=== PATIENT | male | born 1945 | race Caucasian/White ===

== ENCOUNTER → 2016-12-19 | Outpatient (CLI) | payer OTHER, MEDICARE | PROVIDERS: ATTEND Physician Assistant | DX: R13.10 Dysphagia, unspecified (principal); R09.89 Other specified symptoms and signs involving the circulatory and respiratory systems | CPT/HCPCS: 74230; 92611; G8996; G8997; G8998 ==

== ENCOUNTER → 2017-01-01 | Outpatient (CLI) | payer OTHER, MEDICARE ==
[~2017-01-01] MED LIST: LIDOCAINE 1% 300 MG/30 ML SDV ONE
== END ==
LOC: FIMAGING 12:16
PROVIDERS: ATTEND Physician Assistant
PROC: 0G9K3ZX Drainage of Thyroid Gland, Percutaneous Approach, Diagnostic (ICD-10-PCS; principal; 2017-01-01)
DX: R13.10 Dysphagia, unspecified (principal); J04.0 Acute laryngitis

== ENCOUNTER 2017-03-10 18:28 | Inpatient (IN) | payer OTHER, MEDICARE ==
--- NOTE | 2017-03-10 18:32 | EDPHY ---
H & P HPI/ROS: CHIEF COMPLAINT: Lower right abdominal pain HISTORY OF PRESENT ILLNESS: The patient is an anticoagulated (Plavix) 71 y/o male with a history of [place], CAD , COPD, and hypertension arriving via EMS, complaining of constant, worsening right lower abdominal pain, onset yesterday. He initially thought he was constipated, so he took a laxative with mild relief of symptoms. He was able to have a bowel movement yesterday and today. While en route to the ED he was given 100mcg Fentanyl and 4mg Zofran with mild relief of symptoms. Denies taking any medications for relief of pain today or yesterday. Denies recent history of constipation. Denies vomiting, nausea, urinary complaints, chest pain , fever or other pertinent symptoms. Last PO was last night. REVIEW OF SYSTEMS: A ten point review of systems was performed and is negative with the exception of the items mentioned in the HPI. Past medical history: 1. [place] 2. CAD 3. COPD 4. Hypertension 5. Nasal cancer 6. Sleep apnea 7. Hypothyroid 8. Asthma 9. Dyslipidemia Past surgical history: 1. Shoulder surgery Family history: Denies Social history: Lives in [place], single, former smoker, daily marijuana and alcohol General Appearance: Alert. Vital signs reviewed. BP 185/94. Eyes: Pupils equal and round, no conjunctival injection, no discharge. Anicteric. ENT, Mouth: Mucous membranes are dry, no oropharyngeal erythema or edema. Neck: No lymphadenopathy, supple. Respiratory: Distant lung sounds. Lungs are clear to auscultation; no wheezes, rales, or rhonchi. Cardiovascular: Distant heart sounds. Regular rate and rhythm; no murmur, rub, or gallop. Gastrointestinal: [place]. Small hernia defect on umbilicus that is reducible. Positive McBurney point tenderness, guarding. Hypoactive bowel sounds. No organomegaly appreciated. Skin: Venous stasis changes on bilateral lower extremities. Warm and dry, no rashes on exposed skin. Back: Nontender to palpation over the thoracolumbar spine. No CVAT. Extremities: No lower extremity edema, no calf tenderness or swelling. Neurological: Alert and oriented. Moving all four extremities easily and equally. Psychiatric: Normal affect. - Medical/Surgical History Hx Asthma: No Hx Chronic Respiratory Disease: Yes Hx Diabetes: No Hx Cardiac Disease: Yes Hx Renal Disease: No Hx Cirrhosis: No Hx Alcoholism: No Hx HIV/AIDS: No Hx Splenectomy or Spleen Trauma: No Other PMH: ANGINA TN RESP ISSUES COPD. DM diet controlled, nasal cancer, sleep apnea, CPOD, hypothyroid, HTN, asthma, CAD, dyslipisemia, daily marijuan and alcholol. - Social History Smoking Status: Former smoker Constitutional: Initial Vital Signs Temperature (C) 37.5 C 03/10/17 18:40 Heart Rate 87 03/10/17 18:40 Respiratory Rate 18 03/10/17 18:40 Blood Pressure 185/94 H 03/10/17 18:40 O2 Sat (%) 94 03/10/17 18:40 O2 Delivery Mode Nasal Cannula O2 (L/minute) 2 Allergies/Adverse Reactions: amlodipine Allergy (Severe, Unverified 03/10/17 22:04) Edema of Extremities ezetimibe [From Zetia] Allergy (Severe, Unverified 03/10/17 22:06) Other-Enter Comments [id number] Reductase Inhibitor Allergy (Severe, Unverified 03/10/17 22:06) Other-Enter Comments valsartan [From Diovan] Allergy (Severe, Unverified 03/10/17 22:05) Penicillins Allergy (Unknown, Verified 03/10/17 18:45) UPSET STOMACH lisinopril [Lisinopril] Allergy (Verified 03/10/17 18:45) Swelling/neck,face,throat tetracycline [Tetracycline] Allergy (Verified 03/10/17 18:45) UPSET STOMACH Home Medications: Medication Instructions Recorded Clopidogrel Bisulfate [Plavix (*)] 75 mg PO DAILY 05/19/10 Aspirin/Sod Bicarb/Citric Acid 1 each PO TID PRN 12/30/13 [[facility] Original Tab Eff] Beclomethasone Qvar 80 [Qvar 80 2 puffs IH BID 12/30/13 (*)] Nebivolol HCl [Bystolic] 10 mg PO BID 12/30/13 Nitroglycerin [Nitrostat 0.4 mg 0.4 mg SL PRN PRN 12/30/13 (*)] Tamsulosin HCl [Flomax 0.4 MG (*)] 0.4 mg PO DAILY 12/30/13 methYLPHENIDATE HCL [Ritalin 10mg 10 mg PO TID PRN 12/30/13 (*)] HYDROcodone/APAP 10/325 [[place]ure 0.5 - 1 tab PO Q4-6PRN PRN 03/29/14 10/325 (*)] guaiFENesin [Mucinex 600 MG (*)] 1,200 mg PO BID PRN 03/29/14 Tiotropium Inhaler [Spiriva 18 mcg IH DAILY #1 mdi 05/06/15 Handihaler] Albuterol [Proventil Inhaler HFA 1 - 2 puffs IH Q4-6PRN PRN 03/11/17 (*)] Furosemide [Lasix 20 MG (*)] 20 mg PO BID 03/11/17 Ipratropium/Albuterol [Duoneb (*)] 3 ml IH QID PRN 03/11/17 Levothyroxine [Synthroid 112 mcg 112 mcg PO DAILY 03/11/17 (*)] Potassium Cl [Klor-Con 20 meq (*)] 20 meq PO DAILY 03/11/17 Hydrocodone/APAP 5/325 [[place] 1 - 2 tab PO Q4HRS PRN #30 tab 03/12/17 5/325 (*)] Moxifloxacin [Avelox 400 mg (*)] 400 mg PO DAILY #5 tab 03/12/17 Medical Decision Making - Diagnostics Imaging: Discussed imaging studies w/ spreading machine operator Radiologist, I viewed and interpreted images myself ED Course/Re-evaluation: The patient is an anticoagulated (Plavix) 71 y/o male with a history of COPD and CAD/TN presenting with worsening right lower quadrant pain since last night. On exam he has a positive McBurney's point tenderness, a small hernia defect on his umbilicus that is reducible, and hypoactive bowel sounds. Abdominal CT and labs ordered. 0.5mg IV Dilaudid and 1L IV NS administered. 0: Patient has an elevated white count. 2012: Spoke with radiologist, patient's abdominal CT reveals appendicitis with a possible early rupture. Reviewed CT myself. 2016: Consulted with Dr. Peoples, general surgeon, he accepts admission of this patient. 2019: Reassessed patient and discussed plan for surgery. Patient is comfortable with this plan. 0.5mg IV Dilaudid administered. Patient is allergic to penicillins, antibiotic choice per Dr. Peoples. Differential Diagnosis: Abdominal pain including but not limited to appendicitis, cholecystitis, gastritis and urinary tract infection. - Data Points Laboratory Results: Laboratory Results 03/10/17 18:32 03/10/17 18:32 Microbiology Results: MICROBIOLOGY 03/10/17 22:10 Abdomen - Tissue Gram Stain - Final 03/10/17 22:10 Abdomen - Tissue Anaerobic Culture - Preliminary Medications Given: Hydrocodone Bitart/Acetaminophen (Eure 5/325) 1 - 2 tab PO Q4HRS PRN PRN Reason: Pain, Moderate Able to Take PO Stop: 03/20/17 22:26 Last Admin: 03/12/17 03:27 Dose: 1 tab Beclomethasone Dipropionate (Qvar 80) 2 puffs IH BID [facility] Stop: 09/07/17 08:59 Last Admin: 03/12/17 08:53 Dose: Not Given Calcium Carbonate (Tums) 500 mg PO TID PRN PRN Reason: Indigestion Stop: 09/08/17 03:37 Last Admin: 03/12/17 04:20 Dose: 500 mg Enoxaparin Sodium (Lovenox) 40 mg SC DAILY [facility] Stop: 09/07/17 08:59 Last Admin: 03/12/17 08:22 Dose: 40 mg Furosemide (Lasix) 20 mg PO BID [facility] Stop: 09/07/17 08:59 Last Admin: 03/12/17 08:21 Dose: 20 mg Levofloxacin/Dextrose (Levaquin 500 Mg (Premix)) 100 mls @ 100 mls/hr IV DAILY [facility] PRN Reason: Protocol Stop: 04/10/17 08:59 Last Admin: 03/12/17 08:22 Dose: 100 mls Ketorolac Tromethamine (Toradol) 15 mg IVP Q6HRS [facility] Stop: 03/16/17 00:00 Last Admin: 03/12/17 05:36 Dose: 15 mg Levothyroxine Sodium (Synthroid) 112 mcg PO DAILY [facility] Stop: 09/07/17 08:59 Last Admin: 03/12/17 08:20 Dose: 112 mcg Nebivolol (Bystolic) 10 mg PO BID [facility] Stop: 09/07/17 08:59 Last Admin: 03/12/17 08:21 Dose: 10 mg Potassium Chloride (Klor-Con) 20 meq PO DAILY [facility] Stop: 09/07/17 08:59 Last Admin: 03/12/17 08:20 Dose: 20 meq Simethicone (Mylicon) 80 mg PO PCHS PRN PRN Reason: Gas Stop: 09/08/17 08:59 Last Admin: 03/12/17 04:20 Dose: 80 mg Tamsulosin HCl (Flomax) 0.4 mg PO DAILY [facility] Stop: 09/07/17 08:59 Last Admin: 03/12/17 08:20 Dose: 0.4 mg Tiotropium [place] (Spiriva Handihaler) 18 mcg IH DAILY [facility] Stop: 09/07/17 08:59 Last Admin: 03/12/17 08:53 Dose: Not Given Discontinued Medications Bupivacaine HCl (Sensorcaine 0.25% Sdv) Confirm Administered Dose 30 ml .ROUTE .STK-MED ONE Stop: 03/10/17 20:54 Last Admin: 03/10/17 22:20 Dose: 30 ml Epinephrine HCl (Epinephrine) Confirm Administered Dose 1 mg .ROUTE .STK-MED ONE Stop: 03/10/17 20:55 Last Admin: 03/10/17 22:20 Dose: 0.15 mg Fentanyl (Sublimaze) 25 - 100 mcg IVP Q5M PRN PRN Reason: PACU, IMMEDIATE Pain control Stop: 03/10/17 23:34 Last Admin: 03/10/17 23:07 Dose: 25 mcg Hydromorphone HCl (Dilaudid) 0.5 mg IVP EDNOW ONE Stop: 03/10/17 18:58 Last Admin: 03/10/17 19:08 Dose: 0.5 mg Hydromorphone HCl (Dilaudid) 0.5 mg IVP EDNOW ONE Stop: 03/10/17 20:22 Last Admin: 03/10/17 20:26 Dose: 0.5 mg Sodium Chloride (Ns) 1,000 mls @ 0 mls/hr IV EDNOW ONE; Wide Open PRN Reason: Protocol Stop: 03/10/17 18:58 Last Admin: 03/10/17 19:08 Dose: 1,000 mls Clindamycin Phosphate/Dextrose (Cleocin 900 Mg (Premix)) 50 mls @ 100 mls/hr IV ONCALL ONE PRN Reason: Protocol Stop: 03/10/17 21:10 Last Admin: 03/10/17 21:09 Dose: 50 mls Metronidazole/Sodium Chloride (Flagyl 500 Mg (Premix)) 100 mls @ 100 mls/hr IV Q8HRS SUMEET PRN Reason: Protocol Stop: 04/10/17 05:59 Last Admin: 03/12/17 05:36 Dose: 100 mls Ondansetron HCl (Zofran) 4 mg IVP Q4HRS PRN PRN Reason: *Nausea &/or Vomiting Stop: 03/11/17 22:26 Last Admin: 03/11/17 07:59 Dose: 4 mg Departure - Departure Disposition: To OP Cath/Surgery Clinical Impression: Acute appendicitis Qualifiers: Acute appendicitis type: with localized peritonitis Qualified Code(s): K35.3 - Acute appendicitis with localized peritonitis Condition: Good Report Scribed for: Promise Teixeira Report Scribed by: Veronica Holm Date of Report: 03/10/17 Time of Report: 18:40 Physician Review and Approval Statement: 03/10/17 18:32 Portions of this note were transcribed by the nuclear medical tech. I, Dr. Promise Teixeira, personally performed the history, physical exam, and medical decision- making; and confirmed the accuracy of the information in the transcribed note.
[2017-03-10] MEDS ORDERED: NS 1,000 ML IV ONE (18:57)
[2017-03-10] MEDS ORDERED: HYDROmorphONE/DILAUDID 1 MG/ML INJ IVP ONE ×2 (18:57→20:21)
[2017-03-10 19:01] LABS: PLATELET COUNT 171 10^3/uL (150-400)
[2017-03-10] MEDS ORDERED: IOPAMIDOL (ISOVUE-300) 100 ML BTL ONE (19:36)
[2017-03-10] MEDS ORDERED: CLINDAMYCIN 900 MG/DEXTROSE 50 ML IV ONE (20:41)
[2017-03-10 20:44] LABS: INR 1.03 (0.83-1.16); PROTIME(PATIENT) 13.7 SEC (12.0-15.0)
[2017-03-10] MEDS ORDERED: BUPIVACAINE 0.25% 30 ML SDV ONE (20:53)
--- NOTE | 2017-03-10 20:58 | PDGENHP ---
History and Physical - Chief Complaint abdominal pain - History of Present Illness 71yo M with multiple medical problems presents with abdominal pain since yesterday around noon. States that the pain persisted and worsened which prompted his presentation here. Describes burning, sharp pain around the umbilicus without radiation 8/10 in intensity better with IV narcotics and lying flat. Has never had pain like this before. Last PO was today at 1300 when he had some elyssa nathan. Drinks a bottle of wine per day, uses marijuana daily. History Information - Allergies/Home Medication List Allergies/Adverse Reactions: Penicillins Allergy (Unknown, Verified 03/10/17 18:45) UPSET STOMACH lisinopril [Lisinopril] Allergy (Verified 03/10/17 18:45) Swelling/neck,face,throat tetracycline [Tetracycline] Allergy (Verified 03/10/17 18:45) UPSET STOMACH Home Medications: Clopidogrel Bisulfate [Plavix (*)] 75 mg PO DAILY 05/19/10 [Last Taken 05/01/15] Furosemide [Lasix 40 MG (*)] 40 mg PO DAILY 05/19/10 [Last Taken 05/01/15] Albuterol Sulfate [Albuterol Inhaler Hfa] 2 puffs IH TID PRN 12/30/13 [Last Taken 05/02/15 12:00] Aspirin/Sod Bicarb/Citric Acid [[facility] Original Tab Eff] 1 each PO TID PRN 12/30/13 [Last Taken 05/02/15 09:00] Beclomethasone Qvar 80 [Qvar 80 (*)] 2 puffs IH BID 12/30/13 [Last Taken 15:00] Levothyroxine Sodium 112 mcg PO DAILY 12/30/13 [Last Taken 05/01/15] Nebivolol HCl [Bystolic] 10 mg PO BID 12/30/13 [Last Taken 05/01/15] Nitroglycerin [Nitrostat 0.4 mg (*)] 0.4 mg SL PRN PRN 12/30/13 [Last Taken 03/18] Potassium Chloride 20 meq PO DAILY 12/30/13 [Last Taken 05/01/15] Tamsulosin HCl [Flomax 0.4 MG (*)] 0.4 mg PO DAILY 12/30/13 [Last Taken 05/01/15 ] methYLPHENIDATE HCL [Ritalin 10mg (*)] 10 mg PO TID PRN 12/30/13 [Last Taken ] HYDROcodone/APAP 10 [[place] (*)] 0.5 - 1 tab PO Q4 PRN 03/29/14 [Last Taken 05/01/15] guaiFENesin [Mucinex 600 MG (*)] 1,200 mg PO BID PRN 03/29/14 [Last Taken ] I have personally reviewed and updated: family history, medical history, social history, surgical history Past Medical History: CAD, [place], COPD, NAVID, Hx of nasal cancer, hypothyroid, asthma, HLD - Surgical History Additional surgical history: shoulder surgery - Family History Positive for: non-pertinent - Social History Smoking Status: Former smoker Alcohol Use: Heavy Drug Use: Marijuana 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, 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[place] per day Review of Systems Review of Systems: ROS: 10pt was reviewed & negative except for what was stated in HPI & below Physical Exam Physical Exam: Temp Pulse Resp BP Pulse Ox 37.5 C 94 20 216/110 H 95 03/10/17 18:40 03/10/17 20:15 03/10/17 20:15 03/10/17 20:15 03/10/17 20:30 Constitutional: no apparent distress, appears nourished, not in pain Eyes: PERRL, anicteric sclera, EOMI Ears, Nose, Mouth, Throat: moist mucous membranes, hearing normal, ears appear normal, no oral mucosal ulcers Cardiovascular: regular rate and rhythym, no murmur, rub, or gallop, No edema Respiratory: no respiratory distress, no rales or rhonchi, clear to auscultation Gastrointestinal: normoactive bowel sounds, other (TTP around the umbilicus, no rebound ) Genitourinary: no bladder fullness, no bladder tenderness Skin: warm, normal color, no rashes or abrasions, no fluctuance, no induration, No mottled Musculoskeletal: full muscle strength, no muscle tenderness, normal joint ROM, no joint effusions Psychiatric: interacting appropriately, not anxious, not encephalopathic, thought process linear Lymph, Heme, Immunologic: no cervical LAD, no supraclavicular LAD Lab Data & Imaging Review 03/10/17 18:32 03/10/17 18:32 WBC 12.39 10^3/uL (3.80-9.50) H 03/10/17 18: RBC 4.75 10^6/uL (4.40-6.38) 03/10/17 18:32 Hgb 17.5 g/dL (13.7-17.5) 03/10/17 18: POC Hgb 16.0 gm/dL (13.7-17.5) 03/10/17 19:00 Hct 49.4 % (40.0-51.0) 03/10/17 18: POC Hct 47 % (40-51) 03/10/17 19:00 MCV 104.0 fL (81.5-99.8) H 03/10/17 18: MCH 36.8 pg (27.9-34.1) H 03/10/17 18: MCHC 35.4 g/dL (32.4-36.7) 03/10/17 18: RDW 13.5 % (11.5-15.2) 03/10/17 18: Plt Count 171 10^3/uL (150-400) 03/10/17 18: MPV 9.3 fL (8.7-11.7) 03/10/17 18: Neut % (Auto) 81.1 % (39.3-74.2) H 03/10/17 18: Lymph % (Auto) 12.5 % (15.0-45.0) L 03/10/17: Logan % (Auto) 5.6 % (4.5-13.0) 03/10/17 18: Eos % (Auto) 0.2 % (0.6-7.6) L 03/10/17 18: Baso % (Auto) 0.2 % (0.3-1.7) L 03/10/17: Nucleat RBC Rel Count 0.0 % (0.0-0.2) 03/10/17 18: Absolute Neuts (auto) 10.03 10^3/uL (1.70-6.50) H 03/10/17 18: Absolute Lymphs (auto) 1.55 10^3/uL (1.00-3.00) 03/10/17 18:32 Absolute Monos (auto) 0.70 10^3/uL (0.30-0.80) 03/10/17 18:32 Absolute Eos (auto) 0.03 10^3/uL (0.03-0.40) 03/10/17 18:32 Absolute Basos (auto) 0.03 10^3/uL (0.02-0.10) 03/10/17 18:32 Absolute Nucleated RBC 0.00 10^3/uL (0-0.01) 03/10/17 18:32 Immature Gran % 0.4 % (0.0-1.1) 03/10/17 18: Immature Gran # 0.05 10^3/uL (0.00-0.10) 03/10/17 18:32 PT 13.7 SEC (12.0-15.0) 03/10/17 18:32 INR 1.03 (0.83-1.16) 03/10/17 18:32 VBG Lactic Acid 1.5 mmol/L (0.7-2.1) 03/10/17 18:00 POC Sodium 143 mEq/L (134-144) 03/10/17 19:00 Sodium 144 mEq/L (134-144) 03/10/17 18:32 POC Potassium 3.4 mEq/L (3.3-5.0) 03/10/17 19:00 Potassium 3.6 mEq/L (3.5-5.2) 03/10/17 18:32 POC Chloride 102 mEq/L (97-110) 03/10/17 19:00 Chloride 99 mEq/L (97-110) 03/10/17 18:32 Carbon Dioxide 32 mEq/l (22-31) H 03/10/17 18:32 Anion Gap 13 mEq/L (8-16) 03/10/17 18:32 POC BUN 7 mg/dL (7-23) 03/10/17 19:00 BUN 9 mg/dL (7-23) 03/10/17 18:32 Creatinine 0.8 mg/dL (0.7-1.3) 03/10/17 18:32 POC Creatinine 0.9 mg/dL (0.7-1.3) 03/10/17 19:00 Estimated GFR > 60 03/10/17 18:32 Glucose 99 mg/dL (70-100) 03/10/17 18:32 POC Glucose 109 mg/dL (70-100) H 03/10/17 19:00 Calcium 10.0 mg/dL (8.5-10.4) 03/10/17 18:32 Visualized and Interpreted imaging results: Yes Interpretation: CT: appendicitis surrounded by fluid, poss perforation Assessment & Plan Assessment: Acute appendicitis (Acute) Plan: 71yo M with appendicitis, possibly perforated - to OR for lap appy, poss open. RBA discussed - have asked medicine to see the patient as well given medical complexity
--- NOTE | 2017-03-10 21:16 | PDANEPAE ---
ANE History of Present Illness appy ANE Past Medical History - Cardiovascular History Hx Hypertension: Yes Hx Chest Pain: Yes Hx Coronary Artery / Peripheral Vascular Disease: Yes - Pulmonary History Hx COPD: Yes Hx Asthma/Reactive Airway Disease: No Hx Recent Upper Respiratory Infection: No Hx Oxygen in Use at Home: Yes O2 in Use at Home (L/minute): 3 Hx Sleep Apnea: Yes - Endocrine History Hx Diabetes: No - Renal History Hx Renal Disorders: No - Liver History Hx Hepatic Disorders: No - GI History GERD: no - Chronic Pain History Chronic Pain: Yes ANE Review of Systems Review of Systems: - Exercise capacity METS (RN): 4 METS ANE Patient History - Allergies Allergies/Adverse Reactions: Penicillins Allergy (Unknown, Verified 03/10/17 18:45) UPSET STOMACH lisinopril [Lisinopril] Allergy (Verified 03/10/17 18:45) Swelling/neck,face,throat tetracycline [Tetracycline] Allergy (Verified 03/10/17 18:45) UPSET STOMACH - Home Medications Home Medications: Clopidogrel Bisulfate [Plavix (*)] 75 mg PO DAILY 05/19/10 [Last Taken 05/01/15] Furosemide [Lasix 40 MG (*)] 40 mg PO DAILY 05/19/10 [Last Taken 05/01/15] Albuterol Sulfate [Albuterol Inhaler Hfa] 2 puffs IH TID PRN 12/30/13 [Last Taken 05/02/15 12:00] Aspirin/Sod Bicarb/Citric Acid [[facility] Original Tab Eff] 1 each PO TID PRN 12/30/13 [Last Taken 05/02/15 09:00] Beclomethasone Qvar 80 [Qvar 80 (*)] 2 puffs IH BID 12/30/13 [Last Taken 15:00] Levothyroxine Sodium 112 mcg PO DAILY 12/30/13 [Last Taken 05/01/15] Nebivolol HCl [Bystolic] 10 mg PO BID 12/30/13 [Last Taken 05/01/15] Nitroglycerin [Nitrostat 0.4 mg (*)] 0.4 mg SL PRN PRN 12/30/13 [Last Taken 03/18] Potassium Chloride 20 meq PO DAILY 12/30/13 [Last Taken 05/01/15] Tamsulosin HCl [Flomax 0.4 MG (*)] 0.4 mg PO DAILY 12/30/13 [Last Taken 05/01/15 ] methYLPHENIDATE HCL [Ritalin 10mg (*)] 10 mg PO TID PRN 12/30/13 [Last Taken ] HYDROcodone/APAP 10/325 [[place] [address]25 (*)] 0.5 - 1 tab PO Q4 PRN 03/29/14 [Last Taken 05/01/15] guaiFENesin [Mucinex 600 MG (*)] 1,200 mg PO BID PRN 03/29/14 [Last Taken ] - NPO status NPO Since - Liquids (Date): 03/10/17 NPO Since - Liquids (Time): 13:00 NPO Since - Solids (Date): 03/09/17 NPO Since - Solids (Time): 12:00 - Anes Hx Anes Hx: no prior problems - Smoking Hx Smoking Status: Former smoker - Alcohol Use Alcohol Use: Heavy ANE Labs/Vital Signs - Labs Result Diagrams: 03/10/17 18:32 03/10/17 18:32 - Vital Signs Blood Pressure: 184/160 Heart Rate: 94 Respiratory Rate: 22 O2 Sat (%): 92 Height: 190.5 cm Weight: 104.326 kg ANE Physical Exam - Airway Mallampati Score: Class 2 Mouth exam: poor dentition - Pulmonary Pulmonary: no respiratory distress - Cardiovascular Cardiovascular: regular rate and rhythym - ASA Status ASA Status: III ANE Anesthesia Plan Anesthesia Plan: general endotracheal anesthesia
[2017-03-10] MEDS ORDERED: DEXAMETHASONE 4 MG/ML VIAL ONE (21:18)
[2017-03-10] MEDS ORDERED: ONDANSETRON 4 MG/2 ML VIAL ONE (21:18)
[2017-03-10] MEDS ORDERED: fentaNYL 100 MCG/2 ML INJ ONE ×2 (21:18→22:39)
[2017-03-10] MEDS ORDERED: SUCCINYLCHOLINE CHLORIDE 200 MG/10 ML SYR IVP ONE (21:18)
[2017-03-10] MEDS ORDERED: ROCURONIUM 50 MG/5 ML VIAL ONE (21:18)
[2017-03-10] MEDS ORDERED: PROPOFOL 200 MG/20 ML VIAL ONE (21:18)
[2017-03-10] MEDS ORDERED: KETOROLAC 30 MG/1 ML SDV ONE (21:18)
[2017-03-10] MEDS ORDERED: LIDOCAINE 2% 5 ML SDV ONE (21:19)
[2017-03-10] MEDS ORDERED: SUGAMMADEX SODIUM 200 MG/2 ML VIAL IVP ONE (21:41)
[2017-03-10] MEDS ORDERED: HYDROmorphONE/DILAUDID 1 MG/ML INJ IVP PRN (22:27)
[2017-03-10] MEDS ORDERED: ACETAMINOPHEN 325 MG TAB PO PRN (22:27)
[2017-03-10] MEDS ORDERED: ONDANSETRON 4 MG/2 ML VIAL IVP PRN (22:27)
--- NOTE | 2017-03-10 22:27 | POSTOPPROG ---
Post Op Note Date of Operation: 03/10/17 Surgeon: Freedom Peoples Anesthesiologist: John Anesthesia: GET(General Endotracheal) Pre-op Diagnosis: perforated appendicitis Post-op Diagnosis: same Procedure: lap appy Findings: perforated appendix, base clean Inf/Abcess present in the surg proc area at time of surgery?: Yes Depth: Organ Space EBL: Minimal Total fluids administered: 1000cc washout Specimen(s): appendix and abdominal culture
[2017-03-10] MEDS ORDERED: ALBUTEROL 3 ML DEYVIAL IH PRN (22:34)
[2017-03-10] MEDS ORDERED: NALOXONE HCL 0.4 MG/ML INJ IVP PRN (22:34)
[2017-03-10] MEDS ORDERED: LABETALOL HCL 5 MG/ML 20 ML MDV IVP PRN (22:34)
--- NOTE | 2017-03-10 22:35 | POSTANESTH ---
Post Anesthetic Evaluation Cardiovascular Status: Normal, Stable Respiratory Status: Normal, Stable Level of Consciousness/Mental Status: Can Participate in Eval, Other, See Comment (slightly agitated) Pain Control: Adequate, Prn Tx Ordered Nausea/Vomiting Control: Adequate, Prn Tx Ordered Complications Possibly Related to Anesthesia: None Noted
[2017-03-10] MEDS: fentaNYL 100 MCG/2 ML INJ IVP PRN ×2 (22:39→23:07)
[2017-03-10] MEDS: KETOROLAC 15 MG/1 ML SDV IVP SCH (23:54)
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
--- NOTE | 2017-03-11 04:15 | GOP ---
[f rep st] OPERATIVE REPORT DATE OF OPERATION: 03/10/2017 SURGEON: Freedom Peoples MD [employer]TER[employer] ARCHITECT: None. ANESTHESIA: General endotracheal. ANESTHESIOLOGIST: Dr. Que Lopez. PREOPERATIVE DIAGNOSIS: Perforated appendicitis. POSTOPERATIVE DIAGNOSIS: Perforated appendicitis. PROCEDURE PERFORMED: Laparoscopic appendectomy. FINDINGS: Perforated appendix about mid appendix, base appeared unaffected. SPECIMENS: Appendix. ESTIMATED BLOOD LOSS: 10 cc. DESCRIPTION OF PROCEDURE: The patient was greeted in the preoperative suite. Once again, risks, benefits, and alternatives were discussed. Consent was signed. He was then brought back to the operative suite, placed on the OR table in supine position. After all anesthesia, machines, including SCDs, were on and functioning, a World Health Organization timeout was performed. After successful induction of general anesthesia, the patient's abdomen was prepped and draped in typical sterile fashion. Antibiotics were given on-call to the operating room. I successfully entered the abdomen via an infraumbilical cutdown through which the Veress needle was passed and I achieved insufflation with CO2 to 15 mmHg which was well tolerated by the patient. Through this site I inserted a 12 mm Visiport. I then inserted 2 additional 5 mm trocars, 1 in the suprapubic, 1 in the left lower quadrant. I identified the appendix by tracing the taeniae inferiorly. It was perforated about the mid proximal appendix. I successfully freed it from its abscessed cavity and dissected out the base. Once the base was successfully dissected out, I took the mesentery with the Harmonic Scalpel. I amputated the appendix from the cecal base using a single fire Endo-CHRISTOPH blue load stapler. I was approximately 1 cm away from the mid proximal perforation site. The specimen was then removed. I then irrigated the patient's right lower quadrant and pelvis with 1 L of sterile saline noting clear effluent in the suction canister. Prior to this a portion of the abscessed cavity was removed and sent for culture. I inspected my staple line which was intact and hemostatic. I inspected the mesoappendix which was hemostatic as well. I infiltrated local anesthesia into all port sites which were then removed. I desufflated my pneumoperitoneum. I closed my infraumbilical port site with an 0 Vicryl stitch and the skin with 4-0 Monocryl over which Dermabond was placed. The patient was then extubated in the operative suite and taken to the PACU in satisfactory condition. DRAINS: None. COUNTS: All counts were reported as correct x2. /[id number]/MODL MTDD
[2017-03-11] MEDS: HYDROCODONE/APAP 5/325 TAB PO PRN ×4 (04:50→23:36)
[2017-03-11] MEDS: KETOROLAC 15 MG/1 ML SDV IVP SCH ×4 (05:59→23:35)
[2017-03-11] MEDS: levOFLOXACIN 500 MG/DEXTROSE 100 ML IV SCH (07:59)
[2017-03-11] MEDS: ENOXAPARIN 40 MG/0.4 ML SYR SC SCH (07:59)
[2017-03-11] MEDS ORDERED: guaiFENesin 600 MG TAB.ER PO PRN (08:42)
[2017-03-11] MEDS ORDERED: ASPIRIN PO PRN (08:42)
[2017-03-11] MEDS ORDERED: IPRATROPIUM/ALBUTEROL 3 ML DEYVIAL IH PRN (08:42)
[2017-03-11] MEDS ORDERED: ALBUTEROL 60 PUFFS/8 GM MDI IH PRN (08:42)
[2017-03-11] MEDS ORDERED: [UNRECOGNIZED DRUG - OTHER] PO PRN (08:42)
[2017-03-11] MEDS ORDERED: SOD BICARB PO PRN (08:42)
[2017-03-11] MEDS ORDERED: ALBUTEROL 200 PUFFS/18 GM MDI IH PRN (08:50)
[2017-03-11] MEDS ORDERED: NON-FORMULARY NEW DRUG (Nebivolol Hcl [Bystolic] 10 MG) PO SCH (09:00)
[2017-03-11] MEDS: BECLOMETHASONE QVAR 80 MDI IH SCH ×2 (09:31→21:10)
[2017-03-11] MEDS: TIOTROPIUM INHALER 18 MCG/DOSE 5 DOSE/MDI IH SCH (09:32)
[2017-03-11] MEDS: NEBIVOLOL HCL 5 MG TAB PO SCH ×2 (10:00→22:28)
[2017-03-11] MEDS: FUROSEMIDE 20 MG TAB PO SCH ×2 (10:00→22:27)
[2017-03-11] MEDS: TAMSULOSIN HCL 0.4 MG CAP PO SCH (10:00)
[2017-03-11] MEDS: POTASSIUM CL 20 MEQ TAB PO SCH (10:00)
[2017-03-11] MEDS: LEVOTHYROXINE 112 MCG TAB PO SCH (10:00)
--- NOTE | 2017-03-11 12:20 | SOAPPROG ---
SOAP Progress Note Assessment/Plan: Assessment/Plan: 71yo M s/p lap appy for perforated appendicitis - VSS, HDS - pain much better - tolerating CLD, abdomen soft and aTTP - Reg diet - Will stay overnight for IV abx, Cx pending. - Plan for dc tomorrow 03/11/17 12:19 Subjective: feels much better, hungry Objective: Vital Signs Temp Pulse Resp BP Pulse Ox 36.5 C 69 16 140/78 H 91 L 03/11/17 12:00 03/11/17 12:00 03/11/17 12:00 03/11/17 12:00 03/11/17 12:00 03/10/17 03/11/17 03/12/17 05:59 05:59 05:59 Intake Total 1490 Output Total 125 Balance 1365 PT 13.7 SEC (12.0-15.0) 03/10/17 18:32 INR 1.03 (0.83-1.16) 03/10/17 18:32 ICD10 Worksheet Patient Problems: Problems Problem Status Onset Acute appendicitis Acute C. difficile enteritis Acute 11/03/13 Chest pain Acute Chronic Disease [facility]/Transitional Care Acute Chronic obstructive pulmonary disease with acute exacerbation Acute Coronary artery disease Acute Exacerbation of asthma Acute MRSA (methicillin resistant Staphylococcus aureus) Acute 05/06/15
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
--- NOTE | 2017-03-11 16:48 | ASMTCMCOM ---
CM Note CM Note Notes: Chart reviewed. No needs identified. Lives Independent. CM available should needs arise. Date Signed: 03/11/2017 04:47 PM Electronically Signed By:Khushi Eli RN
[2017-03-12] MEDS: HYDROCODONE/APAP 5/325 TAB PO PRN (03:27)
[2017-03-12] MEDS ORDERED: CALCIUM CARBONATE 500 MG CHEWABLE TAB PO PRN (03:38)
[2017-03-12] MEDS ORDERED: SIMETHICONE 80 MG TAB CHEW PO PRN (03:38)
[2017-03-12] MEDS: KETOROLAC 15 MG/1 ML SDV IVP SCH ×2 (05:36→11:55)
[2017-03-12] MEDS: LEVOTHYROXINE 112 MCG TAB PO SCH (08:20)
[2017-03-12] MEDS: TAMSULOSIN HCL 0.4 MG CAP PO SCH (08:20)
[2017-03-12] MEDS: POTASSIUM CL 20 MEQ TAB PO SCH (08:20)
[2017-03-12] MEDS: NEBIVOLOL HCL 5 MG TAB PO SCH (08:21)
[2017-03-12] MEDS: FUROSEMIDE 20 MG TAB PO SCH (08:21)
[2017-03-12] MEDS: levOFLOXACIN 500 MG/DEXTROSE 100 ML IV SCH (08:22)
[2017-03-12] MEDS: ENOXAPARIN 40 MG/0.4 ML SYR SC SCH (08:22)
--- NOTE | 2017-03-12 08:50 | SOAPPROG ---
SOAP Progress Note Assessment/Plan: Assessment: 71yo M s/p lap appy for perforated appendicitis - had a bad night last night - nauseated after flagyl. DC flagyl -levaquin x 5 more days -if feels improved, tolerating diet, can discharge later this afternoon - midline incision superficial dehiscence. Steri strip and bandaid S: Regretted eating dinner last night. Did not sleep well Abdomen soft with active bowel sounds Midline wound without signs of infection but superficial dehiscence. 03/11/17 12:19 Plan: 03/12/17 08:47 Objective: Vital Signs Temp Pulse Resp BP Pulse Ox 36.8 C 62 18 163/87 H 99 03/12/17 04:00 03/12/17 08:21 03/12/17 04:00 03/12/17 08:21 03/12/17 04:00 Laboratory Results 03/12/17 07:25 03/11/17 03/12/17 03/13/17 05:59 05:59 05:59 Intake Total 1490 2200 Output Total 125 Balance 1365 2200 PT 13.7 SEC (12.0-15.0) 03/10/17 18:32 INR 1.03 (0.83-1.16) 03/10/17 18:32 ICD10 Worksheet Patient Problems: Problems Problem Status Onset Acute appendicitis Acute C. difficile enteritis Acute 11/03/13 Chest pain Acute Chronic Disease Mgmt/Transitional Care Acute Chronic obstructive pulmonary disease with acute exacerbation Acute Coronary artery disease Acute Exacerbation of asthma Acute MRSA (methicillin resistant Staphylococcus aureus) Acute 05/06/15
[2017-03-12] MEDS: TIOTROPIUM INHALER 18 MCG/DOSE 5 DOSE/MDI IH SCH (08:53)
[2017-03-12] MEDS: BECLOMETHASONE QVAR 80 MDI IH SCH (08:53)
[2017-03-12 08:55] VITALS: O2SAT 93
[2017-03-12 11:42] VITALS: BP 105/48; PULSE 59; RESP 12; TEMP 98.7
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
--- NOTE | 2017-03-12 15:05 | ASDISCHSUM ---
Discharge Information Plan Status:Home with No Needs Medically Cleared to Leave: Discharge Date:03/12/2017 01:48 PM CM D/C Disposition:Home, Routine, Self-Care ADT D/C Disposition:Home, Routine, Self-Care Projected Discharge Date:03/12/2017 01:48 PM Transportation at D/C:Family Discharge Delay Reason: Follow-Up Date:03/12/2017 01:48 PM Discharge Slot: Final Diagnosis: Placement Information Patient Contact Information Contact Name:JASON Relationship:Friend Address:[address] Work Phone: City:[place] Phone: [facility]/Zip Code:[place] [address] Email: Financial Information Financial Class: Primary Plan Desc:MEDICARE INPATIENT Primary Plan Number:[id number] Secondary Plan Desc:[employer]/MDR SUPPLEMENT Secondary Plan Number:[id number] Assessment Information [facility] CM Progress Note CM Note CM Note Notes: Chart reviewed. No needs identified. Lives Independent. CM available should needs arise. Date Signed: 03/11/2017 04:47 PM Electronically Signed By:Khushi Eli RN Intervention Information
== END 2017-03-12 13:48 | disposition home or self-care (01) | DRG 339 ==
LOC: EDUNIT# → OBSVTOIN 22:27 → F3N 23:18
PROVIDERS: ADMIT Surgery; ATTEND Surgery
PROC: 0DTJ4ZZ Resection of Appendix, Percutaneous Endoscopic Approach (ICD-10-PCS; principal; 2017-03-10 21:00)
DX: K35.3 Acute appendicitis with localized peritonitis (principal); C7A.020 Malignant carcinoid tumor of the appendix; T81.31XA Disruption of external operation (surgical) wound, not elsewhere classified, initial encounter; J44.9 Chronic obstructive pulmonary disease, unspecified; Z87.891 Personal history of nicotine dependence; J45.909 Unspecified asthma, uncomplicated; I25.10 Atherosclerotic heart disease of native coronary artery without angina pectoris; I25.2 Old myocardial infarction; I10 Essential (primary) hypertension; E78.5 Hyperlipidemia, unspecified; E03.9 Hypothyroidism, unspecified; G47.33 Obstructive sleep apnea (adult) (pediatric); K57.30 Diverticulosis of large intestine without perforation or abscess without bleeding; Z85.22 Personal history of malignant neoplasm of nasal cavities, middle ear, and accessory sinuses
CPT/HCPCS: 82947-QW; J0171; J0330; J1100; J1170; J1650; J1885; J1956; J2405; J2704; J3010; Q9967

== ENCOUNTER → 2017-04-23 | Outpatient (CLI) | payer OTHER, MEDICARE | LOC: BHFA 13:00 | PROVIDERS: ATTEND Internal Medicine Interventional Cardiology | DX: I25.10 Atherosclerotic heart disease of native coronary artery without angina pectoris (principal) | CPT/HCPCS: 78452; 93017; A9500; J2785 ==

== ENCOUNTER → 2017-04-24 | Outpatient (CLI) | payer OTHER, MEDICARE | LOC: FIMAGING 14:26 | PROVIDERS: ATTEND Family Medicine | DX: J84.10 Pulmonary fibrosis, unspecified (principal); R91.8 Other nonspecific abnormal finding of lung field; I25.10 Atherosclerotic heart disease of native coronary artery without angina pectoris; I70.0 Atherosclerosis of aorta ==

== ENCOUNTER → 2017-05-02 | Outpatient (CLI) | payer OTHER, MEDICARE | LOC: BHFA 10:45 | PROVIDERS: ATTEND Internal Medicine Cardiovascular Disease | DX: I25.10 Atherosclerotic heart disease of native coronary artery without angina pectoris (principal) ==

== ENCOUNTER → 2017-05-09 | Outpatient (CLI) | payer OTHER, MEDICARE | LOC: BHFA 11:00 | PROVIDERS: ATTEND Internal Medicine Cardiovascular Disease | DX: J44.9 Chronic obstructive pulmonary disease, unspecified (principal) ==

== ENCOUNTER 2017-07-30 12:29 | Inpatient (IN) | payer OTHER, MEDICARE ==
[2017-07-30 12:50] LABS: PLATELET COUNT 146 10^3/uL (150-400)
--- NOTE | 2017-07-30 12:51 | CPEKG ---
Heart Rate: 104 RR Interval: 577 P-R Interval: 164 QRSD Interval: 128 QT Interval: 364 QTC Interval: 479 P Shoshoni: 64 QRS Shoshoni: 0 T Wave Shoshoni: -82 EKG Severity - ABNORMAL ECG - EKG Impression: SINUS TACHYCARDIA EKG Impression: RIGHT BUNDLE BRANCH BLOCK Electronically Signed By: Lola Ogden 30-Jul-2017 15:19:57
--- NOTE | 2017-07-30 13:33 | EDPHY ---
HPI/HX/ROS/PE/MDM Narrative: CHIEF COMPLAINT: Chest pain, abdominal pain, cough HISTORY OF PRESENT ILLNESS: The patient is a 71 y/o male with a history of COPD and myocardial infarction complaining of fever, cough, chest pain, and abdominal pain for the past two weeks. He reports coughing up clear mucus. He feels "wobbly" and unable to care for himself. He has some associated vomiting. He denies significant shortness of breath or any other associated symptoms. He denies daily alcohol use. He denies smoking. He denies cardiac stent. He is on Plavix. He reports taking aspirin "some days". He reports overall feeling poorly for 2 weeks with gradual decline. He does state that at this point he cannot care for himself at home. No chills, shortness of breath, palpitations, diarrhea, urinary complaints, headache, lightheadedness. REVIEW OF SYSTEMS: Aside from elements discussed in the HPI, a comprehensive 10-point review of systems was reviewed and is negative. PAST MEDICAL HISTORY: COPD, [place] in 2013. On Plavix. SOCIAL HISTORY: Lives in [place], employed, non-smoker VITAL SIGNS: Reviewed by me GENERAL: Chronically ill-appearing, thin, in no respiratory distress. HEENT: Atraumatic. Eyes: No icterus, no injection. Mouth: dry lips, moist mucous membranes. No erythema or lesions. Neck: supple with no adenopathy. LUNGS: Diminished breath sounds throughout. Occasional wheezy cough. No rhonchi or rales. CARDIAC: Regular rate and rhythm, no rubs, murmurs or gallops. ABDOMEN: Soft, nontender, nondistended, bowel sounds normal. BACK: No CVA tenderness. EXTREMITIES: No trauma. No edema. Range of motion is normal throughout. NEURO: Alert and oriented, grossly nonfocal. SKIN: Warm and dry, no rash. PSYCHIATRIC: Normal mentation, no agitation. ED Course: 12-LEAD EKG: Please see the full report in [facility]. My interpretation: Sinus tachycardia, right bundle branch block , no change from previous The patient presents with cough, chest pain, upper abdominal pain, and fever. He reports he has felt this way for the past two weeks. He feels he is "wobbly" and unable to care for himself. On exam, he has diminished breath sounds and dry lips but moist mucus membranes. His troponin is positive at 0.045. Plan for respiratory panel, chest x-ray, EKG, and 325 mg aspirin. 2:00PM- His chest x-ray is clear. He will be admitted to the hospital due to his elevated troponin. Dr. Lopez will be the admitting physician. MDM: After history and physical examination, the differential for patient's presenting complaints was considered, including but not limited to, myocardial ischemia, acute coronary syndrome, pulmonary embolus, pulmonary infectious causes, COPD exacerbation, pulmonary edema, congestive heart failure, and cardiac causes. - Data Points Imaging Results: Imaging Impressions Chest X-Ray 07/30/17 13:31 Impression: Clear lungs. No acute process. Laboratory Results: Laboratory Results 07/30/17 12:35 07/30/17 12:35 07/30/17 07/30/17 12:35 12:35 WBC 11.56 10^3/uL H 10^3/uL (3.80-9.50) RBC 4.30 10^6/uL L 10^6/uL (4.40-6.38) Hgb 14.3 g/dL g/dL (13.7-17.5) Hct 42.0 % % (40.0-51.0) MCV 97.7 fL fL (81.5-99.8) MCH 33.3 pg pg (27.9-34.1) MCHC 34.0 g/dL g/dL (32.4-36.7) RDW 14.2 % % (11.5-15.2) Plt Count 146 10^3/uL L 10^3/uL (150-400) MPV 10.4 fL fL (8.7-11.7) Neut % (Auto) 89.2 % H % (39.3-74.2) Lymph % (Auto) 5.9 % L % (15.0-45.0) Hale % (Auto) 4.2 % L % (4.5-13.0) Eos % (Auto) 0.0 % L % (0.6-7.6) Baso % (Auto) 0.1 % L % (0.3-1.7) Nucleat RBC Rel Count 0.0 % % (0.0-0.2) Absolute Neuts (auto) 10.31 10^3/uL H 10^3/uL (1.70-6.50) Absolute Lymphs (auto) 0.68 10^3/uL L 10^3/uL (1.00-3.00) Absolute Monos (auto) 0.49 10^3/uL 10^3/uL (0.30-0.80) Absolute Eos (auto) 0.00 10^3/uL L 10^3/uL (0.03-0.40) Absolute Basos (auto) 0.01 10^3/uL L 10^3/uL (0.02-0.10) Absolute Nucleated RBC 0.00 10^3/uL 10^3/uL (0-0.01) Immature Gran % 0.6 % % (0.0-1.1) Immature Gran # 0.07 10^3/uL 10^3/uL (0.00-0.10) Sodium 137 mEq/L mEq/L (135-145) Potassium 3.5 mEq/L mEq/L (3.3-5.0) Chloride 97 mEq/L mEq/L (97-110) Carbon Dioxide 28 mEq/l mEq/l (22-31) Anion Gap 12 mEq/L mEq/L (8-16) BUN 16 mg/dL mg/dL (7-23) Creatinine 0.8 mg/dL mg/dL (0.7-1.3) Estimated GFR > 60 Glucose 134 mg/dL H mg/dL (70-100) Calcium 8.7 mg/dL mg/dL (8.5-10.4) Troponin I 0.045 ng/mL H ng/mL (0.000-0.034) Medications Given: Discontinued Medications Aspirin (Aspirin) 324 mg PO EDNOW ONE Stop: 07/30/17 13:55 Last Admin: 07/30/17 14:08 Dose: 324 mg Microbiology Results: MICROBIOLOGY 07/30/17 13:05 Nasal, Sinus - Swab Respiratory Panel (PCR) - Final No Organism Detected General Time Seen by Provider: 07/30/17 13:14 Initial Vital Signs: Initial Vital Signs Temperature (C) 37.5 C 07/30/17 12:37 Heart Rate 107 H 07/30/17 12:37 Respiratory Rate 13 07/30/17 12:37 Blood Pressure 137/80 H 07/30/17 12:37 O2 Sat (%) 97 07/30/17 12:37 O2 Delivery Mode Nasal Cannula O2 (L/minute) 3.5 Allergies/Adverse Reactions: amlodipine Allergy (Severe, Verified 07/30/17 12:43) Edema of Extremities ezetimibe [From Zetia] Allergy (Severe, Verified 07/30/17 12:43) Other-Enter Comments Wognwdp-Ggh-Fsf Reductase Inhibitor Allergy (Severe, Verified 07/30/17 12:43) Other-Enter Comments valsartan [From Diovan] Allergy (Severe, Verified 07/30/17 12:43) Penicillins Allergy (Unknown, Verified 07/30/17 12:43) UPSET STOMACH lisinopril [Lisinopril] Allergy (Verified 07/30/17 12:43) Swelling/neck,face,throat tetracycline [Tetracycline] Allergy (Verified 07/30/17 12:43) UPSET STOMACH Home Medications: Medication Instructions Recorded Clopidogrel Bisulfate [Plavix (*)] 75 mg PO DAILY 05/19/10 Aspirin/Sod Bicarb/Citric Acid 1 each PO TID PRN 12/30/13 [[place] Original Tab Eff] Beclomethasone Qvar 80 [Qvar 80] 2 puffs IH BID 12/30/13 Nebivolol HCl [Bystolic] 10 mg PO BID 12/30/13 Nitroglycerin [Nitrostat 0.4 mg 0.4 mg SL PRN PRN 12/30/13 (*)] Tamsulosin HCl [Flomax 0.4 MG (*)] 0.4 mg PO DAILY 12/30/13 methYLPHENIDATE HCL [Ritalin 10mg 10 mg PO TID PRN 12/30/13 (*)] HYDROcodone/APAP 10325 [[employer] 0.5 - 1 tab PO Q4-6PRN PRN 03/29/14 10 (*)] guaiFENesin [Mucinex 600 MG (*)] 1,200 mg PO BID PRN 03/29/14 Tiotropium Inhaler [Spiriva 18 mcg IH DAILY #1 mdi 05/06/15 Handihaler] Albuterol [Proventil Inhaler HFA 1 - 2 puffs IH Q4-6PRN PRN 03/11/17 (*)] Furosemide [Lasix 20 MG (*)] 20 mg PO BID 03/11/17 Ipratropium/Albuterol [Duoneb (*)] 3 ml IH QID PRN 03/11/17 Levothyroxine [Synthroid 112 mcg 112 mcg PO DAILY 03/11/17 (*)] Potassium Cl [Klor-Con 20 meq (*)] 20 meq PO DAILY 03/11/17 Hydrocodone/APAP 5/325 [[employer] 1 - 2 tab PO Q4HRS PRN #30 tab 03/12/17 5/325 (*)] Moxifloxacin [Avelox 400 mg (*)] 400 mg PO DAILY #5 tab 03/12/17 Departure - Departure Disposition: [facility] Inpatient Acute Clinical Impression: Elevated troponin, Cough Chest pain Qualifiers: Chest pain type: other chest pain Qualified Code(s): R07.89 - Other chest pain Condition: Fair Report Scribed for: Lola Ogden Report Scribed by: Angely Zhu Date of Report: 07/30/17 Time of Report: 15:07 Physician Review and Approval Statement: Portions of this note were transcribed by a center medical director. I personally performed a history, physical exam, medical decision making, and confirmed accuracy of information the transcribed note.
[2017-07-30] MEDS ORDERED: ASPIRIN 81 MG CHEWABLE TAB PO ONE (13:54)
[2017-07-30] MEDS ORDERED: ACETAMINOPHEN 325 MG TAB PO PRN (16:26)
[2017-07-30] MEDS ORDERED: ONDANSETRON 4 MG/2 ML VIAL IVP PRN (16:26)
[2017-07-30] MEDS ORDERED: NITROGLYCERIN 0.4 MG BTL SL PRN (16:26)
[2017-07-30] MEDS ORDERED: HYDROCODONE/APAP 5/325 TAB PO PRN (16:29)
[2017-07-30] MEDS ORDERED: ALBUTEROL 60 PUFFS/8 GM MDI IH PRN (16:29)
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
[2017-07-30] MEDS ORDERED: IOPAMIDOL (ISOVUE 370) 100 ML BTL IV ONE (19:37)
[2017-07-30] MEDS: FUROSEMIDE 20 MG TAB PO SCH (20:36)
[2017-07-30] MEDS ORDERED: NEBIVOLOL HCL 5 MG TAB PO SCH (21:00)
[2017-07-31] MEDS: BECLOMETHASONE QVAR 80 REDIHALER 120 INH/10.6 GM MDI IH SCH ×3 (02:03→20:02)
[2017-07-31] MEDS ORDERED: RANITIDINE SYRUP 15 MG/1 ML UDSYR PO PRN (02:21)
[2017-07-31] MEDS: RANITIDINE HCL 150 MG PO PRN (02:50)
[2017-07-31 04:31] LABS: PLATELET COUNT 133 10^3/uL (150-400)
[2017-07-31] MEDS: FUROSEMIDE 20 MG TAB PO SCH ×2 (08:17→20:08)
[2017-07-31] MEDS: ASPIRIN EC 81 MG TAB PO SCH (08:17)
[2017-07-31] MEDS: TAMSULOSIN HCL 0.4 MG CAP PO SCH (08:18)
[2017-07-31] MEDS: POTASSIUM CL 20 MEQ TAB PO SCH (08:18)
[2017-07-31] MEDS: LEVOTHYROXINE 112 MCG TAB PO SCH (08:18)
[2017-07-31] MEDS: CLOPIDOGREL BISULFATE 75 MG TAB PO SCH (10:10)
[2017-07-31] MEDS: TIOTROPIUM INHALER 18 MCG/DOSE 5 DOSE/MDI IH SCH (10:27)
--- NOTE | 2017-07-31 11:08 | ECHO ---
[email or web address] [address] [address] Main: [phone] Fax: Transthoracic Echocardiogram Name: HALLIE GOLDSTEIN MR#: [id number] Study Date: 07/31/2017 Study Time: 08:19 AM Date of : 1945 Age: 71 year(s) Height: 190.5 cm (75 in.) Weight: 77.11 kg (170 lb.) BSA: 2.05 m2 Gender: Male Examination: Echo Indication: COPD, Eval LV Fx, Shortness of breath Image Quality: Contrast: Requested by: Gurdeep Lopez BP: 142 mmHg/86 mmHg Heart Rate: Rhythm: Indication: COPD, Eval LV Fx, Shortness of breath Procedure Staff Boiler Attendant: Tariq Santillan RDCS Reading Physician: Zuleyma Alexander MD Requesting Provider: Conclusions: Normal size left ventricle. Mild concentric LV hypertrophy. Normal global systolic LV function. No regional wall motion abnormality. Normal size right ventricle. Normal RV function. Small pericardial effusion. Fibrinous debris anterior pericardial space. No significant valvular disease. Compared with echo dated 05/02/2017 There is previously pericardial fat and perhaps a small effusion today's study show slightly more pericardial fluid without tamponade. Measurements: Chambers Valvular Assessment AV/MV Valvular Assessment TV/PV Normal Normal Normal Name Value Range Name Value Range Name Value Range Ao Dania (MM): 3.4 cm (2.2 cm-3.7 AV Vmax: 1.33 m/s (1 m/s-1.7 PV Vmax: 0.53 m/s (0.6 m/s-0.9 cm) m/s) m/s) IVSd (2D): 1.0 cm (0.6 cm-1.1 AV maxP mmHg ( - ) PV PGmax: 1 mmHg ( - ) cm) LVOT Vmax: 0.92 m/s (0.7 m/s-1.1 LVDd (2D): 4.3 cm (4.2 cm-5.9 m/s) cm) MV E Vmax: 0.62 m/s ( - ) LVDs (2D): 2.9 cm (2.1 cm-4 MV A Vmax: 0.70 m/s ( - ) cm) MV E/A: 0.89 ( - ) LVPWd (2D): 1.3 cm (0.6 cm-1 cm) LVEF (2D): 60 (>=54 %) Continued Measurements: Valvular Assessment AV/MV Patient: HALLIE GOLDSTEIN Study Date: 07/31/2017 Page 1 of 2 08:19 AM Name Value MV E' Septal: 0.03 m/s MV E/E' Septal: 18.80 MV E/E' Lateral: 11.20 Findings: Left Ventricle: Normal size left ventricle. Mild concentric LV hypertrophy. Normal global systolic LV function. EF is 60 %. No regional wall motion abnormality. Diastolic dysfunction is present. . Right Ventricle: Normal size right ventricle. Normal RV function. Left Atrium: The left atrium is normal in size. Right Atrium: The right atrium is normal in size. Mitral Valve: The mitral valve is normal in appearance and function. There is no mitral valve regurgitation. Aortic Valve: The aortic valve is normal in appearance and function. The aortic valve is tri-leaflet. Tricuspid Valve: The tricuspid valve appears normal. Trivial tricuspid valve regurgitation. Pulmonic Valve: The pulmonic valve is normal in appearance and function. Aorta: The aorta is normal. Pericardium: Small pericardial effusion. Fibrinous debris anterior pericardial space. Exam Comments: LV wall motion is consistent with bundle branch block.. (No Signature Object) Patient: HALLIE GOLDSTEIN Study Date: 07/31/2017 Page 2 of 2 08:19 AM [id number]
[2017-07-31] MEDS: ENOXAPARIN 40 MG/0.4 ML SYR SC SCH (11:43)
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
--- NOTE | 2017-07-31 15:40 | ASMTCMCOM ---
CM Note CM Note Notes: 07/31/2017 Case Management Note Discussed pt during rounds today. Pt admitted for SOB, malaise and elevated troponin. Met w/pt this afternoon to discuss living situation. Pt lives alone and has strong friend support. He has not been driving recently d/t weakness and friends have been bringing him meals. He has a assistant therapy aide every 2 weeks. Pt is employed. Pt requested SNF referral, stating he thought he should have gone to SNF rehab after recent d/c from [facility]. Pt requested referral to [facility] as it is close to his home. Faxed referral. Case Management d/c poc: [facility] pending acceptance. Case Management to follow. Date Signed: 07/31/2017 03:40 PM Electronically Signed By:Denise Mera RN
[2017-07-31 16:39] LABS: CREATINE KINASE 305 IU/L (0-224)
[2017-07-31] MEDS: NEBIVOLOL HCL 5 MG TAB PO SCH (17:12)
[2017-07-31] MEDS ORDERED: FLUMAZENIL 0.5 MG/5 ML MDV IVP PRN (18:58)
[2017-07-31] MEDS ORDERED: LORazepam 2 MG/ML INJ IVP PRN (18:58)
--- NOTE | 2017-07-31 19:03 | HOSPPROG ---
Hospitalist Progress Note Assessment/Plan: DIAGNOSES: -FAILURE TO THRIVE, CURRENTLY BED-BOUND * Patient lives alone says he has not been out of his house for 2 months -PAIN IN MULTIPLE BODY REGIONS, INCLUDING BACK NECK CHEST AND ABDOMEN * Regarding chest pain the patient has known noncritical CAD, with a normal myocardial perfusion stress test 3 months ago * Regarding abdominal pain this is chronic and does not appear to be improved after his recent abdominal surgery at [facility] * Back pain is also known to be chronic * The patient is currently blaming his failure to thrive on "the National narcotic epidemic dilemma", which she says is preventing him from being prescribed narcotics -ALCOHOL ABUSE / SUSPECT POSSIBLE ONSET OF ALCOHOL WITHDRAWAL AT THIS TIME * Describes drinking half a bottle of wine daily with some additional beer but I am not certain of getting the true story * Onset of tachycardia hypertension, and more aggravated demeanor concerning for possible withdrawal though he is neither confused nor tremulous at the moment with last drink probably less than 24 hr ago -SEVERE DECONDITIONING AND GENERALIZED WEAKNESS * Hard to gauge severity at this time as patient is declining to get out of bed with therapies -HISTORY OF RECENT BOWEL SURGERY AT [facility] * He is eating without nausea or vomiting and is having bowel movements -HISTORY OF CHRONIC SPINE PAIN RELATED TO MULTIPLE INJURIES, WITHOUT RADICULAR SYMPTOMS -CHRONIC HYPOXEMIC RESPIRATORY FAILURE WITH HOME OXYGEN USE AROUND THE CLOCK AND , AND COPD WHICH BOTH APPEAR STABLE AT PRESENT -OBSTRUCTIVE SLEEP APNEA -DAILY MARIJUANA USE This patient is very isolated living at home alone and never leaving his house. He does say that he has friends who check in on him and apparently a woman who he calls a loan secretary comes and checks on him as well. Is unclear to me at the moment her these people are. There may be some depression or other mental health issues underlying the issues above. This patient seen by me on multidisciplinary rounds as well as on hospitalist rounds today. I have also reviewed the patient's case in detail today with Dr. Arthur Martinez PLANS: -I have reviewed his case in detail with Dr. Martinez today from Cardiology, no plans for further coronary assessment and less a more obvious syndrome to suggest acute coronary syndrome develops -CIWA protocol instituted and will watch very closely and manage any withdrawal as a develops -thiamin replacement -nutritional support -continue to trying get the patient to work with Physical occupational therapy -further assessment of his ability for ambulation as were able -social work evaluation -DVT prophylaxis This patient will clearly need ongoing hospital care here for multiple issues in and I am changing him to inpatient status SUBJECTIVE: Patient complains of significant ongoing pain in multiple areas of the body. It seems as I talked to him like these are all actually chronic and little changed from the past He tells me that he has not been out of his house for more than 2 months now literally. He says he does have friends who come in and check on him. No shortness of breath at present No nausea and is eating No fever symptoms OBJECTIVE Vitals reviewed: Is developing some hypertension and tachycardia, otherwise stable vitals on oxygen Education Reporter, my review: Sinus Exam: alert oriented, a somewhat gruff in aggravated demeanor and conversation at this time, angry at hospital staff, but not confused and not tremulous skin warm dry color ok resps not labored lungs clear BSs heart regular abd soft nondistended nontender, bowel sounds present, no palpable abnormality, wounds well healed limbs warm, no edema iv site ok Laboratory data: White count remains elevated 11,000 otherwise unremarkable CBC Unremarkable basic metabolic panel and liver panel Troponins have normalized after indeterminate level on the 1st Objective: Vital Signs Temp Pulse Resp BP Pulse Ox 36.9 C 117 H 18 135/80 H 99 07/31/17 16:00 07/31/17 16:00 07/31/17 16:00 07/31/17 16:00 07/31/17 16:00 Laboratory Results 07/31/17 03:24 07/31/17 03:24 07/30/17 07/31/17 08/01/17 06:59 06:59 06:59 Intake Total 700 1000 Output Total 530 Balance 170 1000 - Time Spent With Patient Time Spent with Patient: greater than 35 minutes Time Spent with Patient: Greater than 35 minutes spent on this patients care, greater than 50% of time spent counseling, educating, and coordinating care regarding the above mentioned plan. ICD10 Worksheet Patient Problems: Problems Problem Status Onset Chest pain Acute Cough Acute Elevated troponin Acute Acute appendicitis Acute C. difficile enteritis Acute 11/03/13 Chronic Disease Mgmt/Transitional Care Acute Chronic obstructive pulmonary disease with acute exacerbation Acute Coronary artery disease Acute Exacerbation of asthma Acute MRSA (methicillin resistant Staphylococcus aureus) Acute 05/06/15
[2017-07-31] MEDS: THIAMINE HCL 100 MG TAB PO SCH (20:08)
[2017-08-01] MEDS: ACETAMINOPHEN 325 MG TAB PO PRN ×4 (01:06→21:42)
[2017-08-01] MEDS: IPRATROPIUM/ALBUTEROL 3 ML DEYVIAL IH PRN ×2 (06:12→22:56)
--- NOTE | 2017-08-01 08:25 | HOSPPROG ---
Hospitalist Progress Note Assessment/Plan: DIAGNOSES: -FAILURE TO THRIVE, CURRENTLY BED-BOUND; SEVERE DECONDITIONING AND GENERALIZED WEAKNESS * Patient lives alone says he has not been out of his house for 2 months, says he depends on friends bringing food to him * Hard to gauge severity of weakness at this time as patient is declining to get out of bed with therapies -ENCEPHALOPATHY * He does seem to have some degree of confusion, difficulty explaining things; at the moment I do not have a baseline and him attempting to contact Mr. Wren , his friend and listed 1st contact to get better background information * B12 deficiencies identified and I am starting in current role B12 infusions at this time * We have observe quite severe sleep apnea here and I wonder if that may actually be contributing if he is not getting good sleep. I observed him to be in apnea for a full minute before if took 1st breath today during my examination , and respiratory therapist found him in a severely apneic and poorly responsive state from which he did after minute to respond well upon awakening. * Other nutritional in different factors may be possible as well * I requested of urine drug screen as well; he does state that he had hydrocodone prescribed but has not had any for the last 2 weeks, but we find an empty hydrocodone bottle in his bag and it is uncertain whether he may have had some here that he has been taking -VITAMIN-B DEFICIENCY, NEWLY IDENTIFIED * MMA is pending to further assess * Certainly could be impacting his encephalopathy * Is not really anemic or macrocytic so not affecting his marrow at present * Parenterally therapy at this time is indicated while with further assess -PAIN IN MULTIPLE BODY REGIONS, INCLUDING BACK NECK CHEST AND ABDOMEN * Regarding chest pain this sounds chronic, the patient has known noncritical CAD, with a normal myocardial perfusion stress test 3 months ago * abdominal pain sounds chronic though difficult to assess timing * Back pain is also known to be chronic * (The patient is currently blaming his failure to thrive on "the National narcotic epidemic dilemma", which she says is preventing him from being prescribed narcotics) -ALCOHOL ABUSE / SUSPECT POSSIBLE ONSET OF ALCOHOL WITHDRAWAL AT THIS TIME * Describes drinking half a bottle of wine daily with some additional beer but I am not certain of getting the true story * Today has not really look like he is in withdrawal but it may still be a bit early so will continue CIWA for the moment -HISTORY OF RECENT BOWEL SURGERY AT [facility] [place] [place] * States he had a right partial colectomy with pathology showing carcinoid as well as other cancerous tissue though he does not know details; states he had intraperitoneal chemotherapy and was told he needs no other therapy but again he is unable to clarify details -CHRONIC HYPOXEMIC RESPIRATORY FAILURE, 24 HR HOME OXYGEN * COPD, sleep apnea, appear stable at baseline * Has not been using CPAP at home because he says he does not tolerate it, however I think he probably has fairly severe apnea and is getting very poor sleep which is not helping his presenting issues as above, have recommended we try some CPAP here, not sure if he will be willing -DAILY MARIJUANA USE at home This patient is very isolated living at home alone and never leaving his house. He does say that he has friends who check in on him and apparently a woman who he calls a marketing secretary comes and checks on him as well. Is unclear to me at the moment her these people are. There may be some depression or other mental health issues underlying the issues above. This patient seen by me on multidisciplinary rounds as well as on hospitalist rounds today. I have also reviewed the patient's case in detail today with Dr. Arthur Martinez PLANS: * will request records from [facility] get more detailed information of his recent abdominal surgery * Continue to work with patient to trying get him to except trying some CPAP here with different mask types than he has used * B12 replacement started parenterally * per Cardiology, no plans for further coronary assessment unless a more concerning syndrome to suggest acute coronary syndrome develops * CIWA protocol instituted and will watch very closely and manage any withdrawal if it develops * thiamin replacement * nutritional support ordered * Regarding his pain would avoid narcotics given his encephalopathic issues, sleep apnea, and failure to thrive at this time * continue to trying get the patient to work with Physical occupational therapy * social work evaluation * DVT prophylaxis Suspect he will end up needing long-term facility the time of discharge unless we find some easily treatable cause of his symptoms which seems unlikely SUBJECTIVE: Still complains of his usual pains as on previous days He has no other specific discomforts today Remains quite weak, appetite fairly poor though no nausea, is having bowel function OBJECTIVE Vitals reviewed: Is developing some hypertension and tachycardia, otherwise stable vitals on oxygen Assembler Movement, my review: Sinus Exam: As I entered the room I observed the patient to be asleep and having a severely prolonged apnea episode, appeared to be greater than 45 sec from the time I entered the room Upon arousal he is alert oriented to person place and time, and is conversant. He is able largely to convey his thoughts but there are times when his words clearly show some degree of confusion and some degree of difficulty piecing together proper sentence. Overall he shows generalized symmetric weakness, no tremor, not anxious at this time. skin warm dry color ok resps not labored lungs clear BSs; Severe barrel chest heart regular abd soft nondistended nontender, bowel sounds present, no palpable abnormality, wounds well healed limbs warm, no edema Limbs, especially legs are quite thin with diminished lean muscle mass iv site ok Lab data: B12 level low at 230, I have ordered methylmalonic acid TSH is normal but free T3 is on the low side, would reassess that I have ordered a urine drug screen this is still pending at present Metabolic panel is stable today Objective: Vital Signs Temp Pulse Resp BP Pulse Ox 36.8 C 100 20 134/78 H 100 08/01/17 08:00 08/01/17 08:00 08/01/17 08:00 08/01/17 08:00 08/01/17 08:00 Laboratory Results 07/31/17 03:24 07/31/17 03:24 07/31/17 08/01/17 08/02/17 06:59 06:59 06:59 Intake Total 700 1550 Output Total 530 Balance 170 1550 - Time Spent With Patient Time Spent with Patient: greater than 35 minutes Time Spent with Patient: Greater than 35 minutes spent on this patients care, greater than 50% of time spent counseling, educating, and coordinating care regarding the above mentioned plan. ICD10 Worksheet Patient Problems: Problems Problem Status Onset Chest pain Acute Cough Acute Elevated troponin Acute Acute appendicitis Acute C. difficile enteritis Acute 11/03/13 Chronic Disease Mgmt/Transitional Care Acute Chronic obstructive pulmonary disease with acute exacerbation Acute Coronary artery disease Acute Exacerbation of asthma Acute MRSA (methicillin resistant Staphylococcus aureus) Acute 05/06/15
[2017-08-01] MEDS: BECLOMETHASONE QVAR 80 REDIHALER 120 INH/10.6 GM MDI IH SCH ×3 (09:55→19:56)
[2017-08-01] MEDS: TIOTROPIUM INHALER 18 MCG/DOSE 5 DOSE/MDI IH SCH (09:56)
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
[2017-08-01] MEDS: ENOXAPARIN 40 MG/0.4 ML SYR SC SCH (12:19)
[2017-08-01] MEDS: MULTIVITAMINS 1 EACH TAB PO SCH (12:20)
[2017-08-01] MEDS: POTASSIUM CL 20 MEQ TAB PO SCH (12:20)
[2017-08-01] MEDS: THIAMINE HCL 100 MG TAB PO SCH (12:20)
[2017-08-01] MEDS: FUROSEMIDE 20 MG TAB PO SCH ×2 (12:20→16:21)
[2017-08-01] MEDS: CLOPIDOGREL BISULFATE 75 MG TAB PO SCH (12:20)
[2017-08-01] MEDS: LEVOTHYROXINE 112 MCG TAB PO SCH (12:20)
[2017-08-01] MEDS: TAMSULOSIN HCL 0.4 MG CAP PO SCH (12:20)
[2017-08-01] MEDS: ASPIRIN EC 81 MG TAB PO SCH (12:20)
[2017-08-01] MEDS: NEBIVOLOL HCL 5 MG TAB PO SCH ×2 (12:20→18:52)
--- NOTE | 2017-08-01 12:58 | PDCARPN ---
Cardiology Progress Note Assessment/Plan: Stat team called this morning for increased somnolence and hypopnea. Vital signs stable with mild sinus tachycardia (HR in the low 100s) and systolic blood pressure in the 130s. History of chronic pain and chronic opiate use raises the possibility he may be self-medicating in the hospital. Empty hydrocodone bottle found in his shaving kit but pt states he ran out 2 weeks ago. Coronary Artery Disease: has chronic chest pain as part of his chronic pain syndrome. Minimal atherosclerotic burden on prior cath and negative Nuc stress test in May 2017. Uncertain as to why he is not on a statin. - Will discuss statin when more alert or as outpatient. Hypertension: adequately controlled at present. Will sign off. Has f/u with his usual wet wash assembler (Dr. French) on August 06 @ 11: 00 am. 08/01/17 12:55 Subjective: Somnolent. Reviewed/Discussed With: hospitalist Objective: Vital Signs (8 Hrs) Temp Pulse Resp BP Pulse Ox 08/01/17 11:44 37.1 C 82 20 114/67 94 08/01/17 10:28 36.3 C 81 113/72 100 08/01/17 10:20 90 113/73 95 08/01/17 10:17 70 107/71 100 08/01/17 10:08 141 H 115/71 08/01/17 10:05 87 106/65 47 L 08/01/17 08:00 36.8 C 100 20 134/78 H 100 08/01/17 06:13 14 93 Intake/Output (24 Hrs) 07/31/17 08/01/17 08/02/17 05:59 05:59 05:59 Intake Total 700 1550 Output Total 530 Balance 170 1550 Intake: Oral (ml) 700 1550 Output: Urine (ml) 530 Urinal 530 Other: Weight 77.111 kg Number of Voids Incontinence 1 Toilet 1 1 Number of Stools Toilet 1 Result Diagrams: 07/31/17 03:24 08/01/17 10:15 Cardiac Labs: Cardiac Lab Results (72 Hrs) 07/30/17 07/30/17 23:30 18:19 Troponin I < 0.012 0.026 - Physical Exam Constitutional: other (Markedly somnolent) Eyes: anicteric sclera Ears, Nose, Mouth, Throat: moist mucous membranes Cardiovascular: regular rate and rhythm, no murmurs, no gallops Respiratory: clear to auscultate bilat Gastrointestinal: normoactive bowel sounds, no tenderness, no masses Skin: no edema Neurologic: other (somnolent but arousable) Psychiatric: following commands ICD10 Worksheet Patient Problems: Problems Problem Status Onset Chest pain Acute Cough Acute Elevated troponin Acute Acute appendicitis Acute C. difficile enteritis Acute 11/03/13 Chronic Disease Mgmt/Transitional Care Acute Chronic obstructive pulmonary disease with acute exacerbation Acute Coronary artery disease Acute Exacerbation of asthma Acute MRSA (methicillin resistant Staphylococcus aureus) Acute 05/06/15
--- NOTE | 2017-08-01 13:38 | ASMTCMCOM ---
CM Note CM Note Notes: 08/01/2017 Case Management Note Discussed pt in rounds. requesting records from [facility]. Notified from [facility] that pt has been accepted. Case Management d/c poc: to [facility]. Case Management to follow. Date Signed: 08/01/2017 01:37 PM Electronically Signed By:Denise Mera RN
[2017-08-01] MEDS: CYANO/VITAMIN B12 1000 MCG/ML VIAL IM SCH (14:38)
--- NOTE | 2017-08-01 18:09 | HOSPPROG ---
Hospitalist Progress Note Assessment/Plan: CRITICAL CARE NOTE GREATER THAN 45 MIN OF BEDSIDE CRITICAL CARE SPENT TODAY IN ADDITION TO MY PREVIOUS HOSPITALIST ROUNDS, MULTIDISCIPLINARY ROUNDS, AND SUBSEQUENT FOLLOW-UP VISITS I WOULD RESPONDED TO A STATIN COUGH FOR THIS PATIENT WAS FOUND UNRESPONSIVE AND APNEIC. BY THE TIME I ARRIVED THE PATIENT WAS BACK IN BED(HAD BEEN FOUND UP IN CHAIR WE HAD BEEN PLACED BY STAFF) AND WAS AWAKE AND BREATHING AGAIN. HIS MENTATION WAS UNCHANGED FROM MY OTHER VISITS. HIS VITAL SIGNS THROUGHOUT IN TERMS OF BLOOD PRESSURE AND PULSE WERE GOOD, HIS OXYGENATION WAS UNMEASURABLE DURING THE EVENT AND BY THE TIME I GOT THERE BECAUSE WE COULD NOT GET A GOOD PULSE READING WITH THE PULSE OXIMETER. THERE IS NO FEVER A BLOOD GAS WAS OBTAINED AND COMES BACK WITH NO CONCERNING ABNORMALITIES. A FINGERSTICK BLOOD SUGAR WAS IN THE 90S. A METABOLIC PANEL WAS UNREMARKABLE. DURING THIS EPISODE WE DID LOOK TO HIS BAGS AND THE PATIENT HAD AN EMPTY BOTTLE FROM HYDROCODONE IN HIS BAG. THIS WAS PRESCRIBED TO HIM. HE STATED THAT HE HAD RUN OUT OF THAT MEDICINE APPROXIMATELY 2 WEEKS AGO AND DENIED USING ANY HERE IN THE HOSPITAL. HE DID NOT HAVE PINPOINT PUPILS DURING MY EXAMINATION. THERE WAS NO INCONTINENCE OR ANYTHING TO SPECIFICALLY SUGGEST SEIZURE. HIS LUNGS WERE CLEAR HEART REGULAR. HIS NEUROLOGIC EXAM SHOWED PREVIOUSLY NONFOCAL ABNORMALITIES WITH ENCEPHALOPATHY, NO TREMOR, NOT ANXIOUS. HE IS STILL ORIENTED TO PERSON PLACE AND TIME MY FINAL IMPRESSION IS THAT THIS WAS LIKELY AN EPISODE OF SEVERE SLEEP APNEA IN A PATIENT WHO HAS LONG HISTORY OF SLEEP APNEA, AND HAS NOT BEEN TREATING IT AT HOME AND NOT ALLOWING TREATMENT SO FAR HERE. AT THIS POINT WE HAVE TALKED TO HIM AND I THINK TO USING SLEEP APNEA TREATMENT WITH CPAP HERE AND WILL TRY AND SEE IF WE CAN ENCOURAGE HIM TO USE THAT OUT OF HOSPITAL WELL. I DID NOT FIND ANY EVIDENCE OF AN INFECTION, HYPOGLYCEMIA, SEIZURE, ACUTE NEUROLOGIC DISORDER OTHERWISE. Objective: Vital Signs Temp Pulse Resp BP Pulse Ox 36.4 C 84 20 107/66 99 08/01/17 16:00 08/01/17 16:00 08/01/17 16:00 08/01/17 16:00 08/01/17 16:00 Laboratory Results 08/01/17 10:15 07/31/17 08/01/17 08/02/17 06:59 06:59 06:59 Intake Total 550 200 Balance 550 200 ICD10 Worksheet Patient Problems: Problems Problem Status Onset Chest pain Acute Cough Acute Elevated troponin Acute Acute appendicitis Acute C. difficile enteritis Acute 11/03/13 Chronic Disease Mgmt/Transitional Care Acute Chronic obstructive pulmonary disease with acute exacerbation Acute Coronary artery disease Acute Exacerbation of asthma Acute MRSA (methicillin resistant Staphylococcus aureus) Acute 05/06/15
[2017-08-02] MEDS: BECLOMETHASONE QVAR 80 REDIHALER 120 INH/10.6 GM MDI IH SCH (08:27)
[2017-08-02] MEDS: IPRATROPIUM/ALBUTEROL 3 ML DEYVIAL IH PRN (08:27)
[2017-08-02] MEDS: TIOTROPIUM INHALER 18 MCG/DOSE 5 DOSE/MDI IH SCH (08:41)
[2017-08-02] MEDS ORDERED: HYDROCODONE/APAP 5/325 TAB PO PRN (09:00)
[2017-08-02] MEDS: NEBIVOLOL HCL 5 MG TAB PO SCH (09:07)
[2017-08-02] MEDS: FUROSEMIDE 20 MG TAB PO SCH ×2 (09:12→16:09)
[2017-08-02] MEDS: MULTIVITAMINS 1 EACH TAB PO SCH (09:12)
[2017-08-02] MEDS: LEVOTHYROXINE 112 MCG TAB PO SCH (09:12)
[2017-08-02] MEDS: TAMSULOSIN HCL 0.4 MG CAP PO SCH (09:12)
[2017-08-02] MEDS: CLOPIDOGREL BISULFATE 75 MG TAB PO SCH (09:12)
[2017-08-02] MEDS: THIAMINE HCL 100 MG TAB PO SCH (09:12)
[2017-08-02] MEDS: ASPIRIN EC 81 MG TAB PO SCH (09:12)
[2017-08-02] MEDS: ENOXAPARIN 40 MG/0.4 ML SYR SC SCH (09:17)
[2017-08-02] MEDS: RANITIDINE HCL 150 MG PO PRN (09:38)
[2017-08-02] MEDS ORDERED: POTASSIUM CL 20 MEQ/15 ML UDCUP PO SCH (09:45)
[2017-08-02] MEDS: POTASSIUM CL 20 MEQ TAB PO SCH (10:27)
[2017-08-02] MEDS: CYANO/VITAMIN B12 1000 MCG/ML VIAL IM SCH (10:42)
[2017-08-02 11:01] VITALS: BP 113/66
[2017-08-02] MEDS: HYDROCODONE/APAP 5/325 TAB PO PRN ×2 (12:17→16:07)
--- NOTE | 2017-08-02 14:19 | PDIAF ---
- Diagnosis Diagnosis: severe deconditioning; recent treatment for appendiceal carcinoma; Code Status: Full Code - Medication Management Discharge Medications: Medications to Continue on Transfer Clopidogrel Bisulfate [Plavix (*)] 75 mg PO DAILY 05/19/10 [Last Taken 03/09/17] Aspirin/Sod Bicarb/Citric Acid [[place] Original Tab Eff] 1 each PO TID PRN 12/30/13 [Last Taken 05/02/15 09:00] Beclomethasone Qvar 80 [Qvar 80] 2 puffs IH BID 12/30/13 [Last Taken 03/09/17] Nitroglycerin [Nitrostat 0.4 mg (*)] 0.4 mg SL PRN PRN 12/30/13 [Last Taken 03/18] Tamsulosin HCl [Flomax 0.4 MG (*)] 0.4 mg PO DAILY 12/30/13 [Last Taken 03/09/17 ] methYLPHENIDATE HCL [Ritalin 10mg (*)] 10 mg PO TID PRN 12/30/13 [Last Taken 08/19] HYDROcodone/APAP 10/325 [[place] 10/325 (*)] 0.5 - 1 tab PO Q4-6PRN PRN 03/29/14 [ Last Taken 03/09/17] guaiFENesin [Mucinex 600 MG (*)] 1,200 mg PO BID PRN 03/29/14 [Last Taken ] Tiotropium Inhaler [Spiriva Handihaler] 18 mcg IH DAILY #1 mdi 05/06/15 [Last Taken 03/09/17] Albuterol [Proventil Inhaler HFA (*)] 1 - 2 puffs IH Q4-6PRN PRN 03/11/17 [Last Taken 03/09/17] Furosemide [Lasix 20 MG (*)] 20 mg PO BID 03/11/17 [Last Taken 03/09/17] Ipratropium/Albuterol [Duoneb (*)] 3 ml IH QID PRN 03/11/17 [Last Taken Unknown] Levothyroxine [Synthroid 112 mcg (*)] 112 mcg PO DAILY 03/11/17 [Last Taken 08/19] Potassium Cl [Klor-Con 20 meq (*)] 20 meq PO DAILY 03/11/17 [Last Taken 03/09/17 ] Nebivolol HCl [Bystolic] 10 mg PO BID@07/31/17 [Last Taken Unknown] Ranitidine HCl [Acid Plant Quality Manager] 150 mg PO BID PRN 07/31/17 [Last Taken 07/30/17 21 :00] Cyanocobalamin [Vitamin B12 (*)] 1,000 mcg PO DAILY tab 08/02/17 [Last Taken Unknown] Discharge Medications: Refer to the Discharge Home Medication list for PRN reason. - Orders Services needed: Registered Nurse, Certified Manager Hair, Physical Therapy, Occupational Therapy Isolation Type: None Diet Recommendation: no restrictions on diet - Follow Up Care Current Providers and Referrals: Freedom Peoples MD [Medical Doctor] - (within 1 week) Patient,NotPresent [Unknown] - As per Instructions Latrell French MD [Medical Doctor] - (August 06 at 11am)
--- NOTE | 2017-08-02 14:26 | ASMTLACE ---
LACE Length of stay for Answers: 2 days current admission Comorbidities - select Answers: Chronic pulmonary disease all that apply Coronary Artery Disease Opioid dependence / Chronic pain Previous myocardial infarction Other Notes: sleep apnea # of Emergency department Answers: 1-2 visits in the last 6 months Score: 13 Date Signed: 08/02/2017 02:25 PM Electronically Signed By:Khushi Eli RN
--- NOTE | 2017-08-02 14:57 | GDS ---
[f rep st] DISCHARGE SUMMARY ALL DIAGNOSES: 1. Failure to thrive, very deconditioned. 2. Acute encephalopathy. 3. Vitamin B12 deficiency. 4. Complaints of pain in multiple body areas. 5. Alcohol abuse. 6. History of recent bowel resection at [facility] with appendiceal carcinoma, having received intrape ritoneal chemotherapy. 7. Chronic hypoxic respiratory failure/chronic obstructive pulmonary disease. 8. Obstructive sleep apnea. 9. Coronary artery disease. HOSPITAL COURSE: 1. Failure to thrive/severe deconditioning: This is slowly improving. He has been working with PT/ OT. Unsure of the exact precipitant, but this is likely multifactorial. Are addressing all problems as possible as below. 2. Encephalopathy: He is somewhat slow to respond, though is currently not completely encephalopath ic. Will address individual problems and follow his overall mental status. 3. Vitamin B12 deficiency: MMA is pending at the time of discharge. He initially received some par enteral B12. Will continue oral B12. This should be rechecked in about a month. 4. Chronic pain, on continuous narcotics: He claims that his Grady had run out 2 weeks ago, althoug h he had a positive urine drug screen. I cannot find evidence that he received opiates prior to the day of discharge here. He has been on these for a long period, thus I am restarting them at his prev ious home dose. He has received a few doses, and this does not appear to have worsened his mental st atus. 5. Obstructive sleep apnea with suspected episode of severe sleep apnea triggering stat team. He re covered without any real intervention. Blood gas at the time was relatively unremarkable. I have re commended strongly that he use his CPAP. His friend will bring his home CPAP to [facility], where he may use it there. 6. History of appendiceal carcinoma, status post recent bowel resection, as well as intraperitoneal chemotherapy at [facility]. He desires to follow up with Dr. Peoples for this. He tells me he does not need any directed Oncology followup. Would defer to Dr. Peoples. 7. Coronary artery disease: Will continue his Plavix for now. He has an allergy to statin. He has a followup with Dr. French as delineated in his discharge plan. 8. Chronic hypoxic respiratory failure/chronic obstructive pulmonary disease: This has been stable. Continue his oxygen. 9. Hypothyroid: His free T3 has been slightly low. He has a normal TSH. I suspect he has likely n ot been taking his Synthroid. Would recheck this in 6 weeks. 10. Disposition: Discharged in stable but still somewhat guarded condition to [facility]. ITEMS PENDING AT THE TIME OF DISCHARGE: MMA level. FOLLOWUP: 1. Dr. Peoples in 1 week for followup of his abdominal surgery. 2. Dr. French on August 06, follow up his coronary artery disease. 3. Follow up with his primary care physician to recheck TSH, T3/T4, B12. He will also need followup for his narcotic dependence and chronic pain. BILLING: I spent more than 30 minutes on the day of discharge coordinating care. /[id number]/MODL
[2017-08-03] MEDS ORDERED: CYANO/VITAMIN B12 1000 MCG TAB PO SCH (09:00)
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
== END 2017-08-02 17:20 | DRG 640 ==
LOC: EDUNIT# → OBSVTOIN 14:55 → INTOOBSV 14:55 → F2W 16:24 → OBSVTOIN 07-31 19:05
PROVIDERS: ADMIT Family Medicine; ATTEND Family Medicine
DX: R62.7 Adult failure to thrive (principal); G93.40 Encephalopathy, unspecified; R07.9 Chest pain, unspecified; J44.9 Chronic obstructive pulmonary disease, unspecified; J96.11 Chronic respiratory failure with hypoxia; I25.10 Atherosclerotic heart disease of native coronary artery without angina pectoris; G89.29 Other chronic pain; G47.33 Obstructive sleep apnea (adult) (pediatric); E53.8 Deficiency of other specified B group vitamins; E03.9 Hypothyroidism, unspecified; Z99.81 Dependence on supplemental oxygen; Z87.891 Personal history of nicotine dependence; Z85.89 Personal history of malignant neoplasm of other organs and systems; Z74.01 Bed confinement status; I25.2 Old myocardial infarction
CPT/HCPCS: 80307; 82607-90; 83921-90; 84481-90; 97116-GP; 97162-GP; 97166-GO; 97530-GP; 97535-GO; G0378; G0480; G8978-GP-CJ; G8979-GP-CI; G8987-GO-CK; G8988-GO-CJ; J1650; J3420; Q9967

== ENCOUNTER 2017-08-03 13:01 | Inpatient (IN) | payer OTHER, MEDICARE ==
--- NOTE | 2017-08-03 13:21 | EDPHY ---
H & P Time Seen by Provider: 08/03/17 13:04 HPI/ROS: CHIEF COMPLAINT: Stroke alert HISTORY OF PRESENT ILLNESS: Patient is a 71-year-old man who is brought in by EMS as a stroke alert from [facility] where he was found to have weakness in his left arm and droop in his left face. Of note the patient was discharged from hospital yesterday where he had been admitted for failure to thrive and deconditioning as well as acute encephalopathy alcohol abuse, COPD with chronic hypoxic respiratory failure and sleep apnea and coronary artery disease. During his stay had an episode of apnea that resulted in a code alert. By the time staff arrived he was awake and acting normally. According to paramedics the patient was last seen normal today at 11:30 a.m. Before his nap. When he was woken from is nap at 12:30 p.m. However he was nonverbal and left-sided facial droop and left arm weakness. The paramedics confirm that he had the symptoms when they arrived on scene. In route however his symptoms have improved. He is now more verbal although slightly slurred. No obvious facial droop and has had increased strength movement in his left arm. He is on Plavix. REVIEW OF SYSTEMS: Unable to obtain secondary to condition EXAM: GENERAL: Somewhat disheveled, minimally verbal HEAD: Atraumatic, normocephalic. EYES: Pupils equal round and reactive to light, extraocular movements intact, sclera anicteric, conjunctiva are normal. ENT: TMs normal, nares patent, oropharynx clear without exudates. Moist mucous membranes. NECK: Normal range of motion, supple without lymphadenopathy or JVD. LUNGS: Breath sounds clear to auscultation bilaterally and equal. No wheezes rales or rhonchi. HEART: Regular rate and rhythm without murmurs, rubs or gallops. ABDOMEN: Soft, nontender, normoactive bowel sounds. No guarding, no rebound. No masses appreciated. BACK: No CVA tenderness, no spinal tenderness, step-offs or deformities EXTREMITIES: Normal range of motion, no pitting or edema. No clubbing or cyanosis. NEUROLOGICAL: No obvious facial droop, mild slurred speech, no tongue deviation , no pronator drift, some mild difficulty with the exam but 5/5 strength in the arms and is able to wiggle toes and move feet but only list them off the bed briefly. PSYCH: Unable to assess SKIN: Warm, dry, normal turgor, no visible rashes or lesions. Source: Patient, EMS, Old records - Medical/Surgical History Hx Asthma: No Hx Chronic Respiratory Disease: Yes Hx Diabetes: No Hx Cardiac Disease: Yes Hx Renal Disease: No Hx Cirrhosis: No Hx Alcoholism: No Hx HIV/AIDS: No Hx Splenectomy or Spleen Trauma: No Other PMH: ANGINA IN RESP ISSUES COPD. DM diet controlled, nasal cancer, sleep apnea, COPD, hypothyroid, HTN, asthma, CAD, dyslipisemia, daily marijuana and alcholol. - Family History Significant Family History: No pertinent family hx - Social History Smoking Status: Former smoker Alcohol Use: Sober Constitutional: Initial Vital Signs Temperature (C) 36.7 C 08/03/17 13:26 Heart Rate 103 H 08/03/17 13:26 Respiratory Rate 20 08/03/17 13:26 Blood Pressure 100/64 08/03/17 13:26 O2 Sat (%) 97 08/03/17 13:26 O2 Delivery Mode Nasal Cannula O2 (L/minute) 4 Allergies/Adverse Reactions: amlodipine Allergy (Severe, Verified 07/30/17 12:43) Edema of Extremities ezetimibe [From Zetia] Allergy (Severe, Verified 07/30/17 12:43) Other-Enter Comments Mlcxmrw-Hvs-Qys Reductase Inhibitor Allergy (Severe, Verified 07/30/17 12:43) Other-Enter Comments valsartan [From Diovan] Allergy (Severe, Verified 07/30/17 12:43) Penicillins Allergy (Unknown, Verified 07/30/17 12:43) UPSET STOMACH lisinopril [Lisinopril] Allergy (Verified 07/30/17 12:43) Swelling/neck,face,throat tetracycline [Tetracycline] Allergy (Verified 07/30/17 12:43) UPSET STOMACH Home Medications: Medication Instructions Recorded Clopidogrel Bisulfate [Plavix (*)] 75 mg PO DAILY 05/19/10 Aspirin/Sod Bicarb/Citric Acid 1 each PO TID PRN 12/30/13 [[place] Original Tab Eff] Beclomethasone Qvar 80 [Qvar 80] 2 puffs IH BID 12/30/13 Nitroglycerin [Nitrostat 0.4 mg 0.4 mg SL PRN PRN 12/30/13 (*)] Tamsulosin HCl [Flomax 0.4 MG (*)] 0.4 mg PO DAILY 12/30/13 methYLPHENIDATE HCL [Ritalin 10mg 10 mg PO TID PRN 12/30/13 (*)] HYDROcodone/APAP [Edison 0.5 - 1 tab PO Q4-6PRN PRN 03/29/14 10325 (*)] guaiFENesin [Mucinex 600 MG (*)] 1,200 mg PO BID PRN 03/29/14 Tiotropium Inhaler [Spiriva 18 mcg IH DAILY #1 mdi 05/06/15 Handihaler] Albuterol [Proventil Inhaler HFA 1 - 2 puffs IH Q4-6PRN PRN 03/11/17 (*)] Furosemide [Lasix 20 MG (*)] 20 mg PO BID 03/11/17 Ipratropium/Albuterol [Duoneb (*)] 3 ml IH QID PRN 03/11/17 Levothyroxine [Synthroid 112 mcg 112 mcg PO DAILY 03/11/17 (*)] Potassium Cl [Klor-Con 20 meq (*)] 20 meq PO DAILY 03/11/17 Nebivolol HCl [Bystolic] 10 mg PO BID@07/31/17 Ranitidine HCl [Acid Urban Planning Professor] 150 mg PO BID PRN 07/31/17 Cyanocobalamin [Vitamin B12 (*)] 1,000 mcg PO DAILY tab 08/02/17 Medical Decision Making - Diagnostics EKG Interpretation: An EKG obtained and was read and documented in trace view. Please see trace view for full reading and report. Sinus rhythm, right bundle branch block, similar to previous Imaging Results: Imaging Impressions Head CT 08/03/17 13:02 Impression: Stable negative head CT. Final concordant results called to Dr. Golden at 13:30 PM General information for patients regarding this examination can be found at [email or web address]. If you have questions or comments about this report, please contact me at [phone] (hospital) or [phone] (cell). Chest X-Ray 08/03/17 13:04 Impression: Increased aortic arch wall thickening since May 2015. Please see the CT angiography report of the neck done earlier today. Head CTA 08/03/17 13:25 Impression: Negative CT angiogram of the brain. 2. CT Angiography of the Neck (With Contrast) Clinical Indications: Stroke alert Technique: During IV administration of 85 mL of Isovue-370 intravenously, helical multidetector data acquisition was obtained from the upper thorax cephalad through the skull base. The thinly collimated data were manipulated in multiple projections on the 3D computer workstation by the radiologist. Dose reduction techniques were utilized. Findings: An inferior aortic arch "ulcerated plaque" with adjacent soft tissue thickening (average HU = 13 ) vs posttraumatic mural tear with adjacent mediastinal soft tissue thickening is stable since July 30, 2017 but new since March 2006, at which time there was a thin, partially calcified ductus ligament present. Carotid bifurcations are widely patent. There is a 25% distal left common carotid artery noncalcified stenosis. There is dense calcification in the left carotid bifurcation without a flow-limiting stenosis. There is more mild calcified plaque in the right carotid bifurcation. Both proximal common and internal carotid arteries are widely patent Both vertebral arteries are open , the right being dominant. No evidence of occlusion, hemodynamically significant stenosis, or ulceration. There is a bovine arch consisting of a conjoined origin of the innominate artery and left common carotid artery. There is multilevel degenerative disk disease between C3 and C7. There is a mild spondylolisthesis at C7-T1 where there is an old mild superior endplate compression of T1. 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 Impression: 1. No evidence for carotid or vertebral artery flow limiting stenosis 2. Posttraumatic versus degenerative inferior aortic arch abnormality, stable x3 days. Doubt acute hemorrhage since the Hounsfield units are low. Please see above. Does the patient have any chest pain? Is there history of severe chest trauma between 2006 and 2017? Final concordant results discussed with Dr. Golden at 2:27 PM Note: All stenoses are calculated using NASCET Criteria. General information for patients regarding this examination can be found at [email or web address]. If you have questions or comments about this report, please contact me at (hospital) or [phone] (cell). Neck CTA 08/03/17 13:25 Impression: Negative CT angiogram of the brain. 2. CT Angiography of the Neck (With Contrast) Clinical Indications: Stroke alert Technique: During IV administration of 85 mL of Isovue-370 intravenously, helical multidetector data acquisition was obtained from the upper thorax cephalad through the skull base. The thinly collimated data were manipulated in multiple projections on the 3D computer workstation by the radiologist. Dose reduction techniques were utilized. Findings: An inferior aortic arch "ulcerated plaque" with adjacent soft tissue thickening (average HU = 13 ) vs posttraumatic mural tear with adjacent mediastinal soft tissue thickening is stable since July 30, 2017 but new since March 2006, at which time there was a thin, partially calcified ductus ligament present. Carotid bifurcations are widely patent. There is a 25% distal left common carotid artery noncalcified stenosis. There is dense calcification in the left carotid bifurcation without a flow-limiting stenosis. There is more mild calcified plaque in the right carotid bifurcation. Both proximal common and internal carotid arteries are widely patent Both vertebral arteries are open , the right being dominant. No evidence of occlusion, hemodynamically significant stenosis, or ulceration. There is a bovine arch consisting of a conjoined origin of the innominate artery and left common carotid artery. There is multilevel degenerative disk disease between C3 and C7. There is a mild spondylolisthesis at C7-T1 where there is an old mild superior endplate compression of T1. 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 Impression: 1. No evidence for carotid or vertebral artery flow limiting stenosis 2. Posttraumatic versus degenerative inferior aortic arch abnormality, stable x3 days. Doubt acute hemorrhage since the Hounsfield units are low. Please see above. Does the patient have any chest pain? Is there history of severe chest trauma between 2006 and 2017? Final concordant results discussed with Dr. Golden at 2:27 PM Note: All stenoses are calculated using NASCET Criteria. General information for patients regarding this examination can be found at [email or web address]. If you have questions or comments about this report, please contact me at [phone](hospital) or [phone] (cell). Chest/Thorax CTA 08/03/17 14:45 Impression: 1. There is no CT evidence of pulmonary artery thromboemboli. 2. More pronounced mediastinal fluid/hemorrhage above and below the aortic arch (than on 07/30/2017) where there is a penetrating undersurface atherosclerotic plaque observed. 3. Atherosclerotic coronary artery calcifications. Findings were discussed between Drs. Greg Mancia, myself, and Dr. Thor Li at 4:15 PM on 08/03/17. Imaging: Discussed imaging studies w/ call specialist Radiologist ED Course/Re-evaluation: 1:20 p.m. the patient's friend has arrived. He was there when the patient woke up. He states that he and the nursing staff noticed the patient had pinpoint pupils and seemed confused and altered but he did not have any aphasia or facial droop or arm weakness. The friend states that the nurses were putting him through those type of movement tests and he was able to do them. This is in direct contradiction to the report the paramedics gave. The patient is now back from CT scan and being examined by [facility]. Will also attempt to contact the group home. Regardless the patient will not be a tPA candidate because even if he did have focal neurologic deficits there now improved. 1:25 p.m. I discussed the case with Dr. Stahl who agrees the patient is not a tPA candidate. She does recommend proceeding with the CT angio and admitting for MRI for confirmation. They calculate an NIH stroke score of 8 with a 3 for the left leg a 3 for the right leg for minimal effort against gravity also a 1 for the left arm for a slight drift and 1 for mild dysarthria. 2:40 p.m. We discussed the CT angio results. The patient denies any significant history of chest trauma. I have paged cardiothoracic surgery. Will also continue our plan to admit for altered mental status and the patient MRI. The patient's neuro exam is improved. No arm weakness detectable now. He is able to hold his legs off the bed. No slurred speech. 2:45 p.m. I discussed the case with Dr. Woo who recommends CT angio of the chest. 3:00 p.m. I discussed the case with Dr. Winkler who will admit. 3:40 p.m. the patient refused to CT scan. I talked to him again and convinced him to have it and called the technical support technician back in. Dr. Woo called over the phone and is concerned about the delay. 4:[address] Woo has evaluated the patient. The patient does have a aortic arch ulceration that he will place a graft into through femoral cutdown. Differential Diagnosis: Partial list of the Differential diagnosis considered include but were not limited to; CVA, medication reaction, sleep apnea and although unlikely based on the history and physical exam, I also considered infection, head injury, seizure. - Data Points Laboratory Results: Laboratory Results 08/03/17 12:05 08/03/17 12:05 08/03/17 08/03/17 08/03/17 14:10 13:09 12:05 WBC RBC Hgb POC Hgb 13.3 gm/dL L gm/dL (13.7-17.5) Hct POC Hct 39 % L % (40-51) MCV MCH MCHC RDW Plt Count MPV Neut % (Auto) Lymph % (Auto) Leon % (Auto) Eos % (Auto) Baso % (Auto) Nucleat RBC Rel Count Absolute Neuts (auto) Absolute Lymphs (auto) Absolute Monos (auto) Absolute Eos (auto) Absolute Basos (auto) Absolute Nucleated RBC Immature Gran % Immature Gran # PT INR APTT POC Sodium 130 mEq/L L mEq/L (135-145) Sodium 130 mEq/L L mEq/L (135-145) POC Potassium 3.7 mEq/L mEq/L (3.3-5.0) Potassium 3.9 mEq/L mEq/L (3.3-5.0) POC Chloride 91 mEq/L L mEq/L (97-110) Chloride 92 mEq/L L mEq/L (97-110) Carbon Dioxide 29 mEq/l mEq/l (22-31) Anion Gap 9 mEq/L mEq/L (8-16) POC BUN 15 mg/dL mg/dL (7-23) BUN 16 mg/dL mg/dL (7-23) Creatinine 0.6 mg/dL L mg/dL (0.7-1.3) POC Creatinine 0.8 mg/dL mg/dL (0.7-1.3) Estimated GFR > 60 Glucose 94 mg/dL mg/dL (70-100) POC Glucose 101 mg/dL H mg/dL (70-100) Calcium 8.0 mg/dL L mg/dL (8.5-10.4) Urine Color YELLOW Urine Appearance CLEAR Urine pH 6.0 (5.0-7.5) Ur Specific Henderson 1.035 H (1.002-1.030) Urine Protein 1+ H (NEGATIVE) Urine Ketones NEGATIVE (NEGATIVE) Urine Blood 1+ H (NEGATIVE) Urine Nitrate NEGATIVE (NEGATIVE) Urine Bilirubin NEGATIVE (NEGATIVE) Urine Urobilinogen 4.0 EU H EU (0.2-1.0) Ur Leukocyte Esterase 1+ H (NEGATIVE) Urine RBC 5-10 /hpf H /hpf (0-3) Urine WBC 10-15 /hpf H /hpf (0-3) Ur Epithelial Cells NONE SEEN /lpf /lpf (NONE-1+) Urine Mucus TRACE /lpf /lpf (NONE-1+) Urine Glucose NEGATIVE (NEGATIVE) 08/03/17 08/03/17 12:05 12:05 WBC 9.85 10^3/uL H 10^3/uL (3.80-9.50) RBC 3.91 10^6/uL L 10^6/uL (4.40-6.38) Hgb 13.0 g/dL L g/dL (13.7-17.5) POC Hgb Hct 37.2 % L % (40.0-51.0) POC Hct MCV 95.1 fL fL (81.5-99.8) MCH 33.2 pg pg (27.9-34.1) MCHC 34.9 g/dL g/dL (32.4-36.7) RDW 13.6 % % (11.5-15.2) Plt Count 142 10^3/uL L 10^3/uL (150-400) MPV 10.9 fL fL (8.7-11.7) Neut % (Auto) 72.3 % % (39.3-74.2) Lymph % (Auto) 11.6 % L % (15.0-45.0) Leon % (Auto) 12.6 % % (4.5-13.0) Eos % (Auto) 0.4 % L % (0.6-7.6) Baso % (Auto) 0.2 % L % (0.3-1.7) Nucleat RBC Rel Count 0.0 % % (0.0-0.2) Absolute Neuts (auto) 7.12 10^3/uL H 10^3/uL (1.70-6.50) Absolute Lymphs (auto) 1.14 10^3/uL 10^3/uL (1.00-3.00) Absolute Monos (auto) 1.24 10^3/uL H 10^3/uL (0.30-0.80) Absolute Eos (auto) 0.04 10^3/uL 10^3/uL (0.03-0.40) Absolute Basos (auto) 0.02 10^3/uL 10^3/uL (0.02-0.10) Absolute Nucleated RBC 0.00 10^3/uL 10^3/uL (0-0.01) Immature Gran % 2.9 % H % (0.0-1.1) Immature Gran # 0.29 10^3/uL H 10^3/uL (0.00-0.10) PT 17.9 SEC H SEC (12.0-15.0) INR 1.46 H (0.83-1.16) APTT 45.4 SEC H SEC (23.0-38.0) POC Sodium Sodium POC Potassium Potassium POC Chloride Chloride Carbon Dioxide Anion Gap POC BUN BUN Creatinine POC Creatinine Estimated GFR Glucose POC Glucose Calcium Urine Color Urine Appearance Urine pH Ur Specific [place] Urine Protein Urine Ketones Urine Blood Urine Nitrate Urine Bilirubin Urine Urobilinogen Ur Leukocyte Esterase Urine RBC Urine WBC Ur Epithelial Cells Urine Mucus Urine Glucose Medications Given: Promethazine HCl (Phenergan) 6.25 - 12.5 mg IVP Q6HRS PRN PRN Reason: Nausea/Vomiting, Use 2nd Stop: 01/30/18 15:27 Last Admin: 08/03/17 15:44 Dose: 12.5 mg Discontinued Medications Sodium Chloride (Ns) 1,000 mls @ 0 mls/hr IV EDNOW ONE; Wide Open PRN Reason: Protocol Stop: 08/03/17 13:46 Last Admin: 08/03/17 14:22 Dose: 1,000 mls Point of Care Test Results: Chemistry 08/03/17 13:09 POC Sodium 130 mEq/L L mEq/L (135-145) POC Potassium 3.7 mEq/L mEq/L (3.3-5.0) POC Chloride 91 mEq/L L mEq/L (97-110) POC BUN 15 mg/dL mg/dL (7-23) POC Creatinine 0.8 mg/dL mg/dL (0.7-1.3) POC Glucose 101 mg/dL H mg/dL (70-100) ISTAT H&H 06/02/18 13:09 POC Hgb 13.3 gm/dL L gm/dL (13.7-17.5) POC Hct 39 % L % (40-51) Departure - Departure Disposition: [facility] Inpatient Acute Clinical Impression: Penetrating ulcer of aorta Altered mental status Qualifiers: Altered mental status type: transient alteration of awareness Qualified Code(s) : R40.4 - Transient alteration of awareness Condition: Fair
[2017-08-03 13:26] LABS: PLATELET COUNT 142 10^3/uL (150-400)
[2017-08-03 13:38] LABS: INR 1.46 (0.83-1.16); PROTIME(PATIENT) 17.9 SEC (12.0-15.0)
[2017-08-03] MEDS ORDERED: NS 1,000 ML IV ONE (13:45)
--- NOTE | 2017-08-03 14:30 | CPEKG ---
Heart Rate: 99 RR Interval: 606 P-R Interval: 180 QRSD Interval: 126 QT Interval: 380 QTC Interval: 488 P [place]: 82 QRS [place]: 70 T Wave [place]: 43 EKG Severity - ABNORMAL ECG - EKG Impression: SINUS TACHYCARDIA EKG Impression: MULTIPLE ATRIAL PREMATURE COMPLEXES EKG Impression: RIGHT BUNDLE BRANCH BLOCK EKG Impression: Similar to previous Electronically Signed By: Davis Golden 03-Aug-2017 14:56:52
[2017-08-03] MEDS ORDERED: IOPAMIDOL (ISOVUE 370) 100 ML BTL IV ONE ×2 (15:14→15:43)
--- NOTE | 2017-08-03 15:26 | ASMTLACE ---
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
[2017-08-03] MEDS ORDERED: ONDANSETRON 4 MG/2 ML VIAL IVP PRN (15:28)
[2017-08-03] MEDS ORDERED: ONDANSETRON DISINTEGRATING 4 MG TAB PO PRN (15:28)
[2017-08-03] MEDS ORDERED: HYDROmorphone HCL/NS 0.5 MG/ML SYR IVP PRN (15:28)
[2017-08-03] MEDS: PROMETHAZINE HCL 25 MG/ML INJ IVP PRN (15:44)
--- NOTE | 2017-08-03 15:52 | ASMTCMCOM ---
CM Note CM Note Notes: Pt presented to the ED from [facility] as a Stroke Alert for AMS, left-sided weakness and left-sided facial droop. Pt was just discharged from [facility] yesterday to . Pt had been admitted 07/31-08/02 for FTT, acute encephelopathy hx of recent bowel resection at [facility] w/appendiceal carcinoma and having received intraperitoneal chemo, CAD, and chronic hypoxic respiratory failure/COPD. Pt's friend, Tommie Stroud ([phone]) is at bedside in the ED. Tommie lives in [place] but is here to help pt out as much as possible. Tommie said he would contact pt's other friends, Nabil Wren ([phone]) and Tiarra Jorge ([phone], [phone]). Tommie has pt's CPAP machine and will bring it to pt's room; even though pt has not wanted to wear CPAP in the past. Pt's PCP is Dr Penelope Sue at [facility] ([phone]) but Dr Sue is on leave through September; pt was to follow up with PCP for repeat labs and chronic pain issues. Pt was also to followup with Dr Peoples next week re: recent abdominal surgery, and follow-up with Dr French on 08/06/17 re:pt's CAD. Pt states he has a housecleaning services that come every 2 weeks but otherwise doesn't receive other home help services. Exact DC needs unknown. CM to follow. Date Signed: 08/03/2017 03:51 PM Electronically Signed By:Paula Weeks RN
--- NOTE | 2017-08-03 17:58 | PDGENHP ---
History and Physical - Chief Complaint left facial droop, aphasia, left arm weakness - History of Present Illness 71 yo M with MMI including COPD, chronic respiratory failure, CAD, chronic pain and continuous narcotic use and dependency brought in from [facility] as a stroke alert with concerns of left facial droop, LUE weakness and aphasia. He was discharged from this hospital yesterday after being admitted with c/o back and chest pain and found to have adult onset FTT. A friend who was present today when the above sxs were noted stated that she did not appreciate any of these sxs but did feel he had pinpoint pupils and speech slurring. At the time of my evaluation, patient is slightly agitated asking that he be "left the F... alone" and states that he has a lot of pain-specifically in his legs and arms. Of note, in the ER, work up included head CT, head and neck CTA. Neck CTA showed concern for tear or ulceration in the aortic arch with chest CTA confirming a penetrating ulcerative plaque of the thoracic aortic arch. History Information - Allergies/Home Medication List Allergies/Adverse Reactions: amlodipine Allergy (Severe, Verified 07/30/17 12:43) Edema of Extremities ezetimibe [From Zetia] Allergy (Severe, Verified 07/30/17 12:43) Other-Enter Comments Nemizim-Xpl-Dbc Reductase Inhibitor Allergy (Severe, Verified 07/30/17 12:43) Other-Enter Comments valsartan [From Diovan] Allergy (Severe, Verified 07/30/17 12:43) Penicillins Allergy (Unknown, Verified 07/30/17 12:43) UPSET STOMACH lisinopril [Lisinopril] Allergy (Verified 07/30/17 12:43) Swelling/neck,face,throat tetracycline [Tetracycline] Allergy (Verified 07/30/17 12:43) UPSET STOMACH Home Medications: Clopidogrel Bisulfate [Plavix (*)] 75 mg PO DAILY 05/19/10 [Last Taken 03/09/17] Aspirin/Sod Bicarb/Citric Acid [[place] Original Tab Eff] 1 each PO TID PRN 12/30/13 [Last Taken 05/02/15 09:00] Beclomethasone Qvar 80 [Qvar 80] 2 puffs IH BID 12/30/13 [Last Taken 03/09/17] Nitroglycerin [Nitrostat 0.4 mg (*)] 0.4 mg SL PRN PRN 12/30/13 [Last Taken 03/18] Tamsulosin HCl [Flomax 0.4 MG (*)] 0.4 mg PO DAILY 12/30/13 [Last Taken 03/09/17 ] methYLPHENIDATE HCL [Ritalin 10mg (*)] 10 mg PO TID PRN 12/30/13 [Last Taken 08/19] HYDROcodone/APAP 10/325 [[place] 10/325 (*)] 0.5 - 1 tab PO Q4-6PRN PRN 03/29/14 [ Last Taken 03/09/17] guaiFENesin [Mucinex 600 MG (*)] 1,200 mg PO BID PRN 03/29/14 [Last Taken ] Albuterol [Proventil Inhaler HFA (*)] 1 - 2 puffs IH Q4-6PRN PRN 03/11/17 [Last Taken 03/09/17] Furosemide [Lasix 20 MG (*)] 20 mg PO BID 03/11/17 [Last Taken 03/09/17] Ipratropium/Albuterol [Duoneb (*)] 3 ml IH QID PRN 03/11/17 [Last Taken Unknown] Levothyroxine [Synthroid 112 mcg (*)] 112 mcg PO DAILY 03/11/17 [Last Taken 08/19] Potassium Cl [Klor-Con 20 meq (*)] 20 meq PO DAILY 03/11/17 [Last Taken 03/09/17 ] Nebivolol HCl [Bystolic] 10 mg PO BID@07/31/17 [Last Taken Unknown] Ranitidine HCl [Acid Mess [employer]] 150 mg PO BID PRN 07/31/17 [Last Taken 07/30/17 21 :00] I have personally reviewed and updated: family history, medical history, social history, surgical history Past Medical History: CAD, CT, COPD, NAVID, Hx of nasal cancer, hypothyroid, asthma, HLD - Past Medical History asthma, coronary artery disease, cancer (nasopharngyeal, 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 Etoh abuse. BPH. chronic resp failure with baseline o2 of 2-3L. chronic pain/cont narcotic use and dependency. obesity - Surgical History Reports: angioplasty, appendectomy, cancer surgery (bowel resection) Additional surgical history: shoulder surgery. tonsills - Family History Positive for: diabetes type II, CAD, hypertension, non-pertinent - Social History Smoking Status: Former smoker Alcohol Use: Heavy Additional social history: hx of drinking 1-2 bottles of wine/day--has been in hospital then SNF for last week and not drinking Review of Systems Review of Systems: ROS: 10pt was reviewed & negative except for what was stated in HPI & below Physical Exam Physical Exam: Temp Pulse Resp BP Pulse Ox 36.8 C 102 H 18 110/75 92 08/03/17 17:35 08/03/17 17:35 08/03/17 17:35 08/03/17 17:35 08/03/17 17:35 O2 (L/minute) 3 Constitutional: chronically ill appearing, unkempt Eyes: PERRL, anicteric sclera Ears, Nose, Mouth, Throat: moist mucous membranes, poor dentition Cardiovascular: regular rate and rhythym, no murmur, rub, or gallop, No edema Respiratory: no respiratory distress, reduced air movement, expiratory wheeze Gastrointestinal: normoactive bowel sounds, soft, non-tender abdomen Genitourinary: no bladder tenderness Skin: warm, normal color Musculoskeletal: muscular tenderness, No full muscle strength Neurologic: AAOx3 Psychiatric: not encephalopathic, agitated Lab Data & Imaging Review 08/03/17 12:05 08/03/17 12:05 WBC 9.85 10^3/uL (3.80-9.50) H 08/03/17 12:05 RBC 3.91 10^6/uL (4.40-6.38) L 08/03/17 12:05 Hgb 13.0 g/dL (13.7-17.5) L 08/03/17 12:05 POC Hgb 13.3 gm/dL (13.7-17.5) L 08/03/17 13:09 Hct 37.2 % (40.0-51.0) L 08/03/17 12:05 POC Hct 39 % (40-51) L 08/03/17 13:09 MCV 95.1 fL (81.5-99.8) 08/03/17 12:05 MCH 33.2 pg (27.9-34.1) 08/03/17 12:05 MCHC 34.9 g/dL (32.4-36.7) 08/03/17 12:05 RDW 13.6 % (11.5-15.2) 08/03/17 12:05 Plt Count 142 10^3/uL (150-400) L 08/03/17 12:05 MPV 10.9 fL (8.7-11.7) 08/03/17 12:05 Neut % (Auto) 72.3 % (39.3-74.2) 08/03/17 12:05 Lymph % (Auto) 11.6 % (15.0-45.0) L 08/03/17 12:05 [place] % (Auto) 12.6 % (4.5-13.0) 08/03/17 12:05 Eos % (Auto) 0.4 % (0.6-7.6) L 08/03/17 12:05 Baso % (Auto) 0.2 % (0.3-1.7) L 08/03/17 12:05 Nucleat RBC Rel Count 0.0 % (0.0-0.2) 08/03/17 12:05 Absolute Neuts (auto) 7.12 10^3/uL (1.70-6.50) H 08/03/17 12:05 Absolute Lymphs (auto) 1.14 10^3/uL (1.00-3.00) 08/03/17 12:05 Absolute Monos (auto) 1.24 10^3/uL (0.30-0.80) H 08/03/17 12:05 Absolute Eos (auto) 0.04 10^3/uL (0.03-0.40) 08/03/17 12:05 Absolute Basos (auto) 0.02 10^3/uL (0.02-0.10) 08/03/17 12:05 Absolute Nucleated RBC 0.00 10^3/uL (0-0.01) 08/03/17 12:05 Immature Gran % 2.9 % (0.0-1.1) H 08/03/17 12:05 Immature Gran # 0.29 10^3/uL (0.00-0.10) H 08/03/17 12:05 PT 17.9 SEC (12.0-15.0) H 08/03/17 12:05 INR 1.46 (0.83-1.16) H 08/03/17 12:05 APTT 45.4 SEC (23.0-38.0) H 08/03/17 12:05 POC Sodium 130 mEq/L (135-145) L 08/03/17 13:09 Sodium 130 mEq/L (135-145) L 08/03/17 12:05 POC Potassium 3.7 mEq/L (3.3-5.0) 08/03/17 13:09 Potassium 3.9 mEq/L (3.3-5.0) 08/03/17 12:05 POC Chloride 91 mEq/L (97-110) L 08/03/17 13:09 Chloride 92 mEq/L (97-110) L 08/03/17 12:05 Carbon Dioxide 29 mEq/l (22-31) 08/03/17 12:05 Anion Gap 9 mEq/L (8-16) 08/03/17 12:05 POC BUN 15 mg/dL (7-23) 08/03/17 13:09 BUN 16 mg/dL (7-23) 08/03/17 12:05 Creatinine 0.6 mg/dL (0.7-1.3) L 08/03/17 12:05 POC Creatinine 0.8 mg/dL (0.7-1.3) 08/03/17 13:09 Estimated GFR > 60 08/03/17 12:05 Glucose 94 mg/dL (70-100) 08/03/17 12:05 POC Glucose 101 mg/dL (70-100) H 08/03/17 13:09 Calcium 8.0 mg/dL (8.5-10.4) L 08/03/17 12:05 Troponin I < 0.012 ng/mL (0.000-0.034) 08/03/17 17:04 Urine Color YELLOW 08/03/17 14:10 Urine Appearance CLEAR 08/03/17 14:10 Urine pH 6.0 (5.0-7.5) 08/03/17 14:10 Ur Specific [place] 1.035 (1.002-1.030) H 08/03/17 14:10 Urine Protein 1+ (NEGATIVE) H 08/03/17 14:10 Urine Ketones NEGATIVE (NEGATIVE) 08/03/17 14:10 Urine Blood 1+ (NEGATIVE) H 08/03/17 14:10 Urine Nitrate NEGATIVE (NEGATIVE) 08/03/17 14:10 Urine Bilirubin NEGATIVE (NEGATIVE) 08/03/17 14:10 Urine Urobilinogen 4.0 EU (0.2-1.0) H 08/03/17 14:10 Ur Leukocyte Esterase 1+ (NEGATIVE) H 08/03/17 14:10 Urine RBC 5-10 /hpf (0-3) H 08/03/17 14:10 Urine WBC 10-15 /hpf (0-3) H 08/03/17 14:10 Ur Epithelial Cells NONE SEEN /lpf (NONE-1+) 08/03/17 14:10 Urine Mucus TRACE /lpf (NONE-1+) 08/03/17 14:10 Urine Glucose NEGATIVE (NEGATIVE) 08/03/17 14:10 Visualized and Interpreted Chest x-ray results: Yes Chest X-Ray results: other (increased aortic wall thickening) Visualized and Interpreted EKG results: Yes EKG Interpretation: Positive for: right bundle branch block Assessment & Plan Assessment: Altered mental status (Acute) Penetrating ulcer of aorta (Acute) 71 yo M with MMI presenting as a stroke alert and found to have penetrating aortic ulcer # penetrating aortic ulcer: with recent admit for back/chest pain and likely slow leak per Dr. Li. Plan is for surgical intervention on Saturday. For now, goal is to control BP to less than 140 systolic and monitor on tele. # acute encephalopathy: brought in as a stroke alert but questionable if focal neuro deficits were actually present--were not by the time patient arrived in ER per ER doctor, and friend felt not present from the beginning. Head CT, head/ neck CTA negative. [facility] neurology did feel that there was a left arm drift and dysphasia still present on arrival and recommending MRI which is pending currently. Could be related to pain medications given pinpoint pupils on exam. # copd with chronic hypoxic resp failure: baseline 2-3L of o2 requirement, no e/ o acute exacerbation currently # chronic pain with continuous narcotic use and dependency: will continue op regimen with caution, monitoring patients mental status # DM2: with last A1c of 4.9 and issues with hypoglycemia, appears to be cured with weight loss # etoh abuse: has been a longstanding issue but not drinking for the last week at least, monitoring # low b12: diagnosed on last admit, started on replacement, MMA level still pending # IP status, will need > 48 hours stay for eval/mgmt of above Care plan reviewed with Dr. Li and ER doctor as above. Old records reviewed/ summarized as above.
[2017-08-03] MEDS ORDERED: hydrALAZINE 20 MG/ML VIAL IVP PRN (18:23)
--- NOTE | 2017-08-03 18:44 | PDMN ---
Medical Necessity Medical necessity: C/M review: est. > 2 MN LOS for eval and TX of acute penetrating aortic ulcer - with recent admit for back / chest pain and likely slow leak per Dr. Li, acute encephalopathy requiring CT surgery consult in ED , planned surgical intervention 08/06/1027, Rehab eval consult, Neurology consult , ongoing control BP to , 1490 systolic, cardiac monitoring, pulse oximetry, supplemental O2, acute inpt PT/OT/ST, comorbid COPD with chronic hypoxic respiratory failure, baseline O2 2-3L/min. requirement, no current acute exacerbation, chronic pain with continuous narcotic use and dependency, type 2 diabetes, alcohol abuse - longstanding issue but patient not drinking for a week , low B 12 per H/P.
[2017-08-03] MEDS: oxyCODONE IR 5 MG TAB PO PRN (22:03)
[2017-08-03] MEDS: ACETAMINOPHEN 325 MG TAB PO PRN (22:03)
[2017-08-04] MEDS: oxyCODONE IR 5 MG TAB PO PRN ×3 (02:22→13:06)
[2017-08-04] MEDS: ACETAMINOPHEN 325 MG TAB PO PRN (02:23)
[2017-08-04 04:02] LABS: PLATELET COUNT 157 10^3/uL (150-400)
[2017-08-04] MEDS ORDERED: ASPIRIN 81 MG CHEWABLE TAB PO SCH (09:00)
[2017-08-04] MEDS: ENOXAPARIN 40 MG/0.4 ML SYR SC SCH ×2 (09:04→10:28)
[2017-08-04] MEDS ORDERED: NITROGLYCERIN 0.4 MG BTL SL PRN (09:20)
[2017-08-04] MEDS ORDERED: IOPAMIDOL (ISOVUE 370) 100 ML BTL IV ONE (09:40)
[2017-08-04] MEDS: NEBIVOLOL HCL 5 MG TAB PO SCH ×2 (10:39→17:49)
[2017-08-04] MEDS: TIOTROPIUM INHALER 18 MCG/DOSE 5 DOSE/MDI IH SCH (10:41)
[2017-08-04] MEDS: ALBUTEROL 60 PUFFS/8 GM MDI IH PRN (10:42)
--- NOTE | 2017-08-04 11:16 | NEUROPROG ---
Assessment: HOSPITAL NEUROLOGY CONSULT REQUESTING: Lida Loving MD REASON: possible stroke HPI: 71 year old man with a history of FTT, chronic pain, chronic narcotic dependence, CAD, COPD, NAVID presented to our ED yesterday with concern of a stroke. He is currently residing at [facility]. Staff had reportedly noted slurred speech and left face/arm weakness. However, later report by staff and a friend/ eyewitness state he was unresponsive with pinpoint pupils. His friend is at bedside today and confirms that he had no notable focal deficits and he was able to wtiness the staff's evaluation which confirmed more global unresponsiveness. On arrival to the ED he was found with slurred speech and difficulty keeping the LUE, RLE and LLE elevated against gravity. Symptoms eventually resolved. He was not deemed a tPA candidate due to resolving symptoms and no intervention was considered due to lack of LVO on CTA. He was admitted for further evaluation, but more notable for finding of an aortic penetrating ulcer with leak. Today the patient is back to baseline. His friend corroborates this. He denies any focal signs/symptoms. He is quite thankful that his other providers were able to find the aortic ulcer, which is going to be intervened upon tomorrow. ROS: As per the HPI, otherwise a complete 12 point ROS was performed and is negative ALLERGIES AND MEDS: As recorded in the EMR - reviewed and reconciled PFSH: As per the intake H&P by Dr. Loving from 08/03 EXAM: VS reviewed in EMR GEN: chronically ill appearing man laying in NAD HEENT: NCAT, sclera anicteric, conjunctiva not injected, MMM, oropharynx clear, no scalp tenderness NECK: supple, nontender, no meningismus CV: RRR s1 s2 wo m/r/c/g. Carotid pulses 2+ wo bruit NEURO: MS: awake, alert, oriented to all spheres. Speech nondysarthric. No language disturbance. Follows commands. Attends to both sides. Recent/remote memory grossly intact. Mood euthymic. Good fund of knowledge. CN: pupils 3mm round and reactive. Intolerant of fundoscopy. VFF. Primary gaze centered. Full ocular motility. Facial sensation preserved. Face symmetric. Hearing grossly intact to finger rub. Palatoglossal movements intact. Shoulder shrug and head turn strong. MOTOR: reduced appendicular bulk. Normal tone. No adventitial movements. Full power throughout , though periods of giveway secondary to body pain. SENSORY: symmetric/intact LT/PP in all extremities. No extinction. COORD: no ataxia FN/HS. Matt a bit labored REFLEX: plantars down. No clonus. Absent ankle jerks, other DTRS 1+/4. GAIT: deferred to PT safety eval DATA REVIEW: Labs reviewed in EMR PERSONALLY INTERPRETED RESULTS AND DATA: MRI brain wo - no acute findings, global volume loss, mild chronic microvascular ischemic changes in the white matter CTA head/neck - normal caliber vessels IMPRESSION AND RECOMMENDATIONS: // ENCEPHALOPATHY - RESOLVED // AORTIC PENETRATING ULCER // NARCOTIC DEPENDENCE // CHRONIC PAIN Patient with an episode of unresponsiveness and reported pinpoint pupils. He did have a question of some extremity weakness on his NIHSS evaluation, but it was not focal/lateralizing. MRI brain wo does not reveal any acute ischemia or other sinister pathology. Difficult to say what may have caused his unresponsiveness. Pinpoint pupils could indicate narcotic overdose, but labs also show some mild electrolyte abnormalities. Would continue ongoing workup for toxic/metabolic/infectious etiologies of his encephalopathy. Consider reducing narcotics while in house and thereafter. Aortic ulceration to be repaired tomorrow. He can follow up as an outpatient after discharge for consideration of an outpatient 4 hour video EEG with sleep. Will sign off. Objective: Vital Signs Temp Pulse Resp BP Pulse Ox 36.6 C 70 18 122/77 H 91 L 08/04/17 07:35 08/04/17 10:09 08/04/17 10:09 08/04/17 07:35 08/04/17 10:09 Laboratory Results 08/04/17 03:40 08/04/17 03:40 08/03/17 08/04/17 08/05/17 05:59 05:59 05:59 Intake Total 300 Output Total 350 Balance -50 PT 17.9 SEC (12.0-15.0) H 08/03/17 12:05 INR 1.46 (0.83-1.16) H 08/03/17 12:05 Allergies/Adverse Reactions: amlodipine Allergy (Severe, Verified 07/30/17 12:43) Edema of Extremities ezetimibe [From Zetia] Allergy (Severe, Verified 07/30/17 12:43) Other-Enter Comments Qwmnnqj-Tjy-Xpe Reductase Inhibitor Allergy (Severe, Verified 07/30/17 12:43) Other-Enter Comments valsartan [From Diovan] Allergy (Severe, Verified 07/30/17 12:43) Penicillins Allergy (Unknown, Verified 07/30/17 12:43) UPSET STOMACH lisinopril [Lisinopril] Allergy (Verified 07/30/17 12:43) Swelling/neck,face,throat tetracycline [Tetracycline] Allergy (Verified 07/30/17 12:43) UPSET STOMACH
--- NOTE | 2017-08-04 13:53 | HOSPPROG ---
Hospitalist Progress Note Assessment/Plan: # penetrating aortic arch ulcer - plan endograft tomorrow by Dr Li and Diego - keep SBP < 140 # htn - cont bystolic, hydralazine prn # acute on chronic pain, continuous narcotics- currently on dilaudid IV and oxycodone # encephalopathy - not clearly a neurologic event - neurology recommends outpatient f/u, consideration of EEG # NAVID - CPAP # recent appendiceal carcinoma s/p intraperitoneal chemo - will follow up with Dr Peoples as outpatient # CAD - hold asa with aortic ulcer # COPD/chronic hypoxic resp failure - cont O2 # hypothyroid - synthroid # low B12 - started on replacement - f/u MMA level # etOH abuse - no withdrawal Subjective: no confusion today; pain better with oxycodone Objective: Vital Signs Temp Pulse Resp BP Pulse Ox 36.8 C 96 15 114/72 93 08/04/17 11:39 08/04/17 11:39 08/04/17 11:39 08/04/17 11:39 08/04/17 11:39 Laboratory Results 08/04/17 03:40 08/04/17 03:40 08/03/17 08/04/17 08/05/17 05:59 05:59 05:59 Intake Total 300 Output Total 350 Balance -50 PT 17.9 SEC (12.0-15.0) H 08/03/17 12:05 INR 1.46 (0.83-1.16) H 08/03/17 12:[address] CTA chest and H&N reviewed - Physical Exam Constitutional: no apparent distress, appears nourished Cardiovascular: regular rate and rhythym, no murmur, rub, or gallop Respiratory: no respiratory distress, no rales or rhonchi, clear to auscultation Gastrointestinal: soft, non-tender abdomen, no palpable masses, No guarding ICD10 Worksheet Patient Problems: Problems Problem Status Onset Altered mental status Acute Penetrating ulcer of aorta Acute Acute appendicitis Acute C. difficile enteritis Acute 11/03/13 Chest pain Acute Chronic Disease Mgmt/Transitional Care Acute Chronic obstructive pulmonary disease with acute exacerbation Acute Coronary artery disease Acute Cough Acute Elevated troponin Acute Exacerbation of asthma Acute MRSA (methicillin resistant Staphylococcus aureus) Acute 05/06/15
[2017-08-04] MEDS: HYDROCODONE/APAP 10/325 TAB PO PRN ×2 (15:03→22:07)
[2017-08-04] MEDS: FUROSEMIDE 20 MG TAB PO SCH (15:03)
[2017-08-04] MEDS ORDERED: TAMSULOSIN HCL 0.4 MG CAP PO ONE (15:45)
--- NOTE | 2017-08-04 15:56 | ASMTCMCOM ---
CM Note CM Note Notes: Patient reviewed and discussed in rounds he was readmitted from [facility] after discharge on Saturday. Per CT exam a penetrating aortic arch ulcer is identified. [facility] to perform endograft tomorrow. Referral to [facility] via [facility] for anticipated dc Saturday or Saturday CM to follow. Plan: Return to [facility] when medically stable. Date Signed: 08/04/2017 03:56 PM Electronically Signed By:Khushi Eli RN
--- NOTE | 2017-08-04 16:01 | GCON ---
[f rep st] CONSULTATION CARDIOLOGY CONSULT. CHIEF COMPLAINT: Back pain/aortic ulceration. HISTORY OF PRESENT ILLNESS: This is a 71-year-old male who presents to [facility] afte r a recent discharge with complaints of left facial droop, back pain, aphasia, left arm weakness. Th e patient underwent CT scanning of the head and neck and as well as the chest, which showed a worseni ng aortic ulceration distal to the left innominate artery. CT Surgery was consulted. Dr. Jen bejarano uated the patient and felt, given the fact the patient had recent CTAs in the last 3 days and this ul ceration has shown clearly enlargement, that we should proceed with repair of this area, most likely with an endo graft. Cardiology was consulted for vascular assistance with the procedure as well as b lood pressure and cardiac management. Currently, the patient denies any chest pain, no shortness of breath. Blood pressure is currently stable at this point. PAST MEDICAL HISTORY: Significant for COPD, coronary artery disease, chronic narcotic use, hypertens ion. ALLERGIES: The patient has allergies to amlodipine, statins, valsartan, penicillin, lisinopril, tetr acycline. HOME MEDICATIONS: Consist of Plavix, aspirin, albuterol, furosemide, potassium, ranitidine. SOCIAL HISTORY: Smoker. Heavy alcohol use. Chronic narcotic use. REVIEW OF SYSTEMS: Patient currently denies any vision change. No headache. No palpitations. He d oes indicate having chronic dull back pain. No abdominal pain. No neck pain. No throat pain. No l ower extremity pain. No new neurologic issues. PHYSICAL EXAM: Patient is afebrile, 96. Blood pressure is currently 140/70, with a heart rate of 72 , respiratory rate is 12, saturating 95% on room air. HEENT: Pupils equal and reactive to light and accommodation. Extraocular movements intact. CARDIOVASCULAR: Regular rate and rhythm. S1, S2. L UNGS: Clear to auscultation bilaterally. ABDOMEN: Soft, nontender. No guarding. EXTREMITIES: No clubbing, no cyanosis, no edema. NEUROLOGICALLY: The patient is somewhat lethargic, but alert and oriented questions when woken up. LABORATORY VALUES: Currently show a white count of 9.4, hemoglobin 11.9, hematocrit 35, platelet cou nt of 157. INR 1.46. Sodium of 133, potassium 3.5, BUN 16, creatinine 0.5. Troponins are negative x2 sets. ASSESSMENT/PLAN: Aortic ulceration. At this time, the patient's recent CTA compared to the CTA from 07/30/2017, shows a worsening distal aortic ulceration distal to the left innominate artery. I spok e in length with Dr. Li as well as with the patient about the current etiology of his discomfort a nd his pain. The patient indicates he was willing to move forward with having this ulceration repair ed, most likely with an endo graft placed percutaneously via the common femoral artery. In the prese nce of Dr. Li, I spoke with the patient, and we discussed the risks of the procedure, including bl eeding, stroke, infection, and possible , and the patient would like to proceed with this proced ure given the current clinical scenario. We will schedule this procedure within the next 24 hours or earlier if any clinical issues arise. /[id number]/MODL
[2017-08-04] MEDS: BECLOMETHASONE QVAR IH SCH (20:07)
[2017-08-04] MEDS ORDERED: CHLORHEXIDINE GLUC HIBICLENS 118 ML BTL TP SCH (21:00)
[2017-08-04] MEDS ORDERED: SENNOSIDES/DOCUSATE SODIUM TAB PO ONE (21:00)
[2017-08-04] MEDS ORDERED: TAMSULOSIN HCL 0.4 MG CAP PO SCH (21:00)
[2017-08-04] MEDS ORDERED: FAMOTIDINE 20 MG TAB PO PRN (21:00)
[2017-08-05] MEDS: HYDROCODONE/APAP 10/325 TAB PO PRN (03:38)
[2017-08-05 04:19] LABS: INR 1.42 (0.83-1.16); PROTIME(PATIENT) 17.5 SEC (12.0-15.0)
[2017-08-05 04:43] LABS: PLATELET COUNT 238 10^3/uL (150-400)
[2017-08-05] MEDS ORDERED: DIAZEPAM 5 MG TAB PO ONE (06:00)
--- NOTE | 2017-08-05 06:42 | PDCARPN ---
Cardiology Progress Note Chief Complaint: back pain/facial droop Assessment/Plan: Assessment: HTN aortic penetrating ulceration Plan: 08/05/17 06:40 Patient confused overnight--but MS clearing up this AM If agreeable, plan for endovascular aortic ulceration repair Risks/possible complications documented NPO Subjective: confused Reviewed/Discussed With: multidisciplinary team Time Spent with Patient: greater than 25 minutes Time Spent with Patient: Greater than 25 minutes spent on this patients care, greater than 50% of time spent counseling, educating, and coordinating care regarding the above mentioned plan. Objective: Vital Signs (8 Hrs) Temp Pulse Resp BP Pulse Ox 08/05/17 03:45 118 H 20 100/58 L 90 L 08/04/17 23:21 37.1 C 118 H 20 139/74 H 84 L Intake/Output (24 Hrs) 08/04/17 08/05/17 08/06/17 05:59 05:59 05:59 Intake Total 300 886 Output Total 350 1350 Balance -50 -464 Intake: Oral (ml) 300 886 Output: Urine (ml) 350 1350 Urinal 350 1350 Other: Weight 83.3 kg Number of Voids Incontinence 1 2 Toilet 1 Urinal 1 Result Diagrams: 08/05/17 03:38 08/05/17 03:38 Cardiac Labs: Cardiac Lab Results (72 Hrs) 08/03/17 08/03/17 22:56 17:04 Troponin I < 0.012 < 0.012 - Physical Exam Constitutional: healthy appearing Ears, Nose, Mouth, Throat: moist mucous membranes Cardiovascular: regular rate and rhythm Peripheral Pulses: 1+: femoral (R), femoral (L) Respiratory: clear to auscultate bilat Gastrointestinal: normoactive bowel sounds Genitourinary: no suprapubic tenderness Skin: no rashes Musculoskeletal: no muscular tenderness ICD10 Worksheet Patient Problems: Problems Problem Status Onset Altered mental status Acute Penetrating ulcer of aorta Acute Acute appendicitis Acute C. difficile enteritis Acute 11/03/13 Chest pain Acute Chronic Disease Mgmt/Transitional Care Acute Chronic obstructive pulmonary disease with acute exacerbation Acute Coronary artery disease Acute Cough Acute Elevated troponin Acute Exacerbation of asthma Acute MRSA (methicillin resistant Staphylococcus aureus) Acute 05/06/15
[2017-08-05] MEDS: NEBIVOLOL HCL 5 MG TAB PO SCH (08:28)
[2017-08-05] MEDS: FUROSEMIDE 20 MG TAB PO SCH ×2 (08:29→15:15)
[2017-08-05] MEDS: CYANO/VITAMIN B12 1000 MCG TAB PO SCH (08:29)
--- NOTE | 2017-08-05 08:42 | CPEKG ---
Heart Rate: 123 RR Interval: 488 QRSD Interval: 124 QT Interval: 352 QTC Interval: 504 QRS [place]: 84 T Wave [place]: 28 EKG Severity - ABNORMAL ECG - EKG Impression: MULTIFOCAL ATRIAL TACHYCARDIA. PVC EKG Impression: RBBB AND LPFB EKG Impression: COMPARED WITH 08/03/2017, HEART RATE FASTER. PVC PRESENT Electronically Signed By: Zuleyma Alexander 05-Aug-2017 16:37:22
[2017-08-05] MEDS ORDERED: LEVOTHYROXINE 112 MCG TAB PO SCH (09:00)
[2017-08-05] MEDS ORDERED: POTASSIUM CL 20 MEQ TAB PO SCH (09:00)
[2017-08-05] MEDS ORDERED: NS 1,000 ML IV ONE (09:36)
[2017-08-05] MEDS ORDERED: HYDROCODONE/APAP 10/325 TAB PO PRN (09:37)
--- NOTE | 2017-08-05 09:42 | HOSPPROG ---
Hospitalist Progress Note Assessment/Plan: # acute encephalopathy - this has been a recurrent issue and seems worse today - ddx narcotics, infection (new leukocytosis and tachycardia), CO2 narcosis - seen by neuro - does not appear to be a primary neurological event - check ABG, CXR, A, blood cultures - decrease narcotics - discussed with Dr Li - we both agree to the emergent nature of the endograft, and to proceed with placement given risk of exsanguination if the penetrating ulcer is untreated # penetrating aortic arch ulcer - endograft today by Dr Li and Diego - keep SBP < 140 # htn - cont bystolic, hydralazine prn # acute on chronic pain, continuous narcotics - stop IV narcotics, decrease PO # NAVID - CPAP # recent appendiceal carcinoma s/p intraperitoneal chemo - will follow up with Dr Peoples as outpatient # CAD - hold asa with aortic ulcer # COPD/chronic hypoxic resp failure - cont O2 # hypothyroid - synthroid # low B12 - started on replacement, MMA elevated # etOH abuse - no withdrawal Subjective: somewhat confused this morning; oriented, but seems to selectively respond Objective: Vital Signs Temp Pulse Resp BP Pulse Ox 37.0 C 118 H 14 101/64 93 08/05/17 07:38 08/05/17 08:28 08/05/17 07:38 08/05/17 08:28 08/05/17 07:38 Laboratory Results 08/05/17 03:38 08/05/17 03:38 08/04/17 08/05/17 08/06/17 05:59 05:59 05:59 Intake Total 300 886 Output Total 350 1350 Balance -50 -464 PT 17.5 SEC (12.0-15.0) H 08/05/17 03:38 INR 1.42 (0.83-1.16) H 08/05/17 03:38 high risk - Physical Exam Constitutional: chronically ill appearing, unkempt Cardiovascular: no murmur, rub, or gallop, tachycardia Respiratory: no respiratory distress, no rales or rhonchi, clear to auscultation Gastrointestinal: soft, non-tender abdomen, no palpable masses, No guarding, No rebound, No distension Neurologic: AAOx3, No weakness, No numbness, No facial droop ICD10 Worksheet Patient Problems: Problems Problem Status Onset C. difficile enteritis Acute 11/03/13 Chest pain Acute Coronary artery disease Acute Chronic Disease Mgmt/Transitional Care Acute Exacerbation of asthma Acute Chronic obstructive pulmonary disease with acute exacerbation Acute MRSA (methicillin resistant Staphylococcus aureus) Acute 05/06/15 Acute appendicitis Acute Elevated troponin Acute Cough Acute Altered mental status Acute Penetrating ulcer of aorta Acute
[2017-08-05] MEDS: TIOTROPIUM INHALER 18 MCG/DOSE 5 DOSE/MDI IH SCH (09:59)
[2017-08-05] MEDS: BECLOMETHASONE QVAR IH SCH ×2 (10:00→20:07)
[2017-08-05] MEDS ORDERED: ceFAZolin 2 GM/DEXTROSE 100 ML IV ONE (10:00)
--- NOTE | 2017-08-05 11:40 | PDANEPAE ---
ANE History of Present Illness 71 yo for tevar ANE Past Medical History - Cardiovascular History Hx Hypertension: Yes Hx Chest Pain: Yes Hx Coronary Artery / Peripheral Vascular Disease: Yes Hx CHF / Valvular Disease: Yes - Pulmonary History Hx COPD: Yes Hx Asthma/Reactive Airway Disease: No Hx Recent Upper Respiratory Infection: No Hx Oxygen in Use at Home: Yes O2 in Use at Home (L/minute): 3 Hx Sleep Apnea: Yes - Endocrine History Hx Diabetes: No - Renal History Hx Renal Disorders: No - Liver History Hx Hepatic Disorders: No - Chronic Pain History Chronic Pain: Yes ANE Review of Systems Review of Systems: - Exercise capacity METS (RN): 3 METS ANE Patient History - Allergies Allergies/Adverse Reactions: amlodipine Allergy (Severe, Verified 07/30/17 12:43) Edema of Extremities ezetimibe [From Zetia] Allergy (Severe, Verified 07/30/17 12:43) Other-Enter Comments Hzxxysg-Xgc-Ctr Reductase Inhibitor Allergy (Severe, Verified 07/30/17 12:43) Other-Enter Comments valsartan [From Diovan] Allergy (Severe, Verified 07/30/17 12:43) Penicillins Allergy (Unknown, Verified 07/30/17 12:43) UPSET STOMACH lisinopril [Lisinopril] Allergy (Verified 07/30/17 12:43) Swelling/neck,face,throat tetracycline [Tetracycline] Allergy (Verified 07/30/17 12:43) UPSET STOMACH - Home Medications Home Medications: Clopidogrel Bisulfate [Plavix (*)] 75 mg PO DAILY 05/19/10 [Last Taken 08/03/17] Aspirin/Sod Bicarb/Citric Acid [[place]ate Original Tab Eff] 1 each PO TID PRN 12/30/13 [Last Taken 05/02/15 09:00] Beclomethasone Qvar 80 [Qvar 80] 2 puffs IH BID 12/30/13 [Last Taken 08/03/17] Nitroglycerin [Nitrostat 0.4 mg (*)] 0.4 mg SL PRN PRN 12/30/13 [Last Taken 03/18] Tamsulosin HCl [Flomax 0.4 MG (*)] 0.4 mg PO HS 12/30/13 [Last Taken 08/02/17] methYLPHENIDATE HCL [Ritalin 10mg (*)] 10 mg PO TID PRN 12/30/13 [Last Taken 08/19] HYDROcodone/APAP 10/325 [[place] 10/325 (*)] 0.5 tab PO Q4H PRN 03/29/14 [Last Taken 08/03/17 05:00] guaiFENesin [Mucinex 600 MG (*)] 1,200 mg PO BID PRN 03/29/14 [Last Taken ] Albuterol [Proventil Inhaler HFA (*)] 2 puffs IH Q4H PRN 03/11/17 [Last Taken ] Furosemide [Lasix 20 MG (*)] 20 mg PO BID@,14 03/11/17 [Last Taken 08/03/17 08 :00] Ipratropium/Albuterol [Duoneb (*)] 3 ml IH QID PRN 03/11/17 [Last Taken Unknown] Levothyroxine [Synthroid 112 mcg (*)] 112 mcg PO DAILY 03/11/17 [Last Taken 04/21 08:00] Potassium Cl [Klor-Con 20 meq (*)] 20 meq PO DAILY 03/11/17 [Last Taken 08/03/17 ] Nebivolol HCl [Bystolic] 10 mg PO BID@,07/31/17 [Last Taken 08/03/17 08:00] Ranitidine HCl [Acid Unattended Ground Sensor Specialist] 150 mg PO BID PRN 07/31/17 [Last Taken 07/30/17 21 :00] Tuberculin (Ppd) [Aplisol] 0.1 ml ID ONCE 08/03/17 [Last Taken 08/02/17] - Smoking Hx Smoking Status: Former smoker - Alcohol Use Alcohol Use: Heavy ANE Labs/Vital Signs - Labs Result Diagrams: 08/05/17 03:38 08/05/17 03:38 - Vital Signs Blood Pressure: 101/64 Heart Rate: 120 Respiratory Rate: 18 O2 Sat (%): 89 Height: 6 ft Weight: 83.098 kg ANE Physical Exam - Airway Neck exam: FROM Mallampati Score: Class 3 Mouth exam: normal dental/mouth exam - Pulmonary Pulmonary: no respiratory distress - Cardiovascular Cardiovascular: regular rate and rhythym - ASA Status ASA Status: III, E ANE Anesthesia Plan Anesthesia Plan: general endotracheal anesthesia
[2017-08-05] MEDS ORDERED: fentaNYL 100 MCG/2 ML INJ ONE ×3 (11:44→13:19)
[2017-08-05] MEDS ORDERED: PROPOFOL/EMULSION 500 MG/50 ML BOTTLE IV ONE (11:45)
[2017-08-05] MEDS ORDERED: NARCOTIC DRIP BAG-TOTAL ALL TYPES IV PRN (13:31)
[2017-08-05] MEDS ORDERED: ALTEPLASE 2 MG VIAL IVP PRN (13:35)
--- NOTE | 2017-08-05 13:53 | GOP ---
[f rep st] OPERATIVE REPORT DATE OF OPERATION: 08/05/2017 SURGEON: Arthur Li DO ANESTHESIA: Linwood Wisdom MD PREOPERATIVE DIAGNOSIS: Penetrating aortic ulcer on the proximal descending thoracic aorta with cont ained mediastinal hematoma. POSTOPERATIVE DIAGNOSIS: Penetrating aortic ulcer on the proximal descending thoracic aorta with con tained mediastinal hematoma. PROCEDURE PERFORMED: Percutaneous right common femoral artery 28 x 100 mm straight Medtronic endogra ft, Valiant. FINDINGS: DESCRIPTION OF PROCEDURE: The patient was intubated after being brought to the cardiac cath lab radiology technologist. He was pre pped and draped in both groins. A percutaneous access in the left common femoral artery was performe d for arterial monitoring and catheterization on the left side by Dr. Cortez. The right side access was obtained percutaneously by Dr. Cortez and myself. Ultimately, a Lunderquist wire was placed in the proximal ascending aorta under fluoroscopic guidance. We then performed angiography identifying the penetrating ulcer on the undersurface of the arch distal to the origin of the left subclavian ar erlinda. We then dilated the right common femoral artery and ultimately placed a 24-[place] sheath into the common femoral artery over the Lunderquist wire, placing the graft at the origin of the subclavia n vessel. Under fluoroscopic guidance, we then deployed the graft intending to have the tines across the subclavian, avoiding the vertebral and occluding the ulceration. Subsequent angiography which w as then placed across the graft revealed no endoleak, complete seal, and excellent flow in both verte bral and left subclavian artery without obstruction. Sheath was removed. The sites were closed with Perclose and a seal on the left. Doppler confirmed patency of distal arteries. Pressure was mainta ined while heparin was reversed with protamine. The patient was removed from the cardiac cath lab radiology technologist to the ICU on a ventilator in stable condition. SURGEONS: Arthur Li DO; Dimas Cortez MD /[id number]/MODL
--- NOTE | 2017-08-05 14:08 | CPIP ---
[f rep st] INVASIVE CARDIAC PROCEDURE DATE OF PROCEDURE: 08/05/2017 CO-SURGEON: Dr. Arthur Li. PROCEDURE: 1. Nonselective left groin sheathogram. 2. Nonselective right groin sheathogram. 3. Upsizing of right groin to 22-[place]izen [place] sheath after triple Perclose placements. 4. Aortic arch angiography. 5. Placement of Medtronic Valiant thoracic graft 28 mm via the right common femoral artery for aorti c ulceration. HISTORY: Briefly, this is a 71-year-old male with history of worsening back pain. The patient was f ound to have a penetrating aortic ulceration in his descending aorta distal to the subclavian artery take-off. The patient actually had CT evidence in the last week of this area actually worsening from his prior CTs. Given the findings, patient was consented for endovascular repair of penetrating aor tic ulceration. DESCRIPTION OF PROCEDURE: After informed consent, patient was brought to [facility] where the patient elect ively intubated. The patient was administered 2 g of Ancef IV. A short 6-[place] sheath was placed l eft common artery verified angiographically. A 6-[place] sheath was placed in the right femoral arter y verified angiographically. This was then upsized to a 22-[place] sheath with triple Perclose placem ents. The patient was administered 10,000 of heparin IV. A marker pigtail was advanced in the left side and angiography was obtained in the [place] projection, which revealed the presence of the aortic ul ceration, which was distal to the subclavian artery. We then proceeded with placement of the Medtronic Valiant thoracic 28 mm graft. This was deployed joyce ccessfully across the lesion. After deployment, there was angiographic images obtained, which showed no flow into the ulceration. Also, there was excellent flow into the left subclavian artery around the tines of the graft. At this time, the catheter was removed back. The sheath was then closed with triple Perclose placeme nt. The left groin was closed a [place] changes. The patient tolerated the procedure well no complic ations. IMPRESSION: Successful placement of Medtronic Valiant 28 mm graft via the femoral route. PLAN: The patient will be admitted to ICU for 24 hours. If clinically stable, could anticipate to b e discharged in the next 24 hours. /[id number]/MODL
[2017-08-05] MEDS: fentaNYL/NACL 100 ML IV SCH (14:24)
[2017-08-05] MEDS: PROPOFOL/EMULSION 100 ML IV SCH ×2 (14:24→21:52)
[2017-08-05] MEDS ORDERED: PANTOPRAZOLE SODIUM 40 MG VIAL IVP SCH ×2 (15:15→18:00)
--- NOTE | 2017-08-05 15:29 | GCON ---
[f rep st] CONSULTATION REASON FOR ADMISSION: 1. Status post endovascular aortic ulceration repair. 2. Respiratory failure. 3. Gastrointestinal bleed. HISTORY: Mr. Moralez is a 71-year-old white male with extensive past medical history including chron ic obstructive pulmonary disease, coronary artery disease, chronic respiratory failure, chronic pain, narcotic use, alcoholism. He was admitted on August 03, 2017, initially presenting as a stroke alert. He was subsequently found to have a penetrating aortic ulcer. Again, he was admitted. Intervention al Cardiology was consulted. Again, he underwent an endoscopic endograft today. The patient is curr ently sedated and on mechanical ventilation. All history is gleaned from the medical record. PAST MEDICAL HISTORY: Significant for chronic obstructive pulmonary disease with chronic hypoxic res piratory failure, obstructive sleep apnea, coronary artery disease, hypothyroidism, alcohol abuse, ch ronic narcotic use, encephalopathy, diabetes, hypertension, and hyperlipidemia. PAST SURGICAL HISTORY: Angioplasty, appendectomy, and a bowel resection. ALLERGIES: Include amlodipine, Zetia, HMG-CoA reductase inhibitor, valsartan, penicillin, lisinopril , tetracycline. SOCIAL HISTORY: Previous heavy smoker, none recently. He admits to heavy alcohol use. PHYSICAL EXAM: VITAL SIGNS: Blood pressure 101/64, pulse is 120, respiration 18, temperature 37. O xygen saturation is 89% on mechanical ventilation. GENERAL: He is a well-developed, 71-year-old whi te male who is sedated and on mechanical ventilation. HEENT: Eyes are taped shut. Throat, endotrac heal tube is in good position. NECK: Supple. There is no cervical adenopathy. HEART: Regular rat e and rhythm with a 2/6 systolic murmur left sternal border without radiation. LUNGS: Diminished br eath sounds. No prolongation of expiratory phase. ABDOMEN: Soft, nontender. Bowel sounds are pres ent. EXTREMITIES: No clubbing, cyanosis, or edema. LABORATORIES: White count is 13, hemoglobin 10, hematocrit 31, platelet count is 238. However, hemo globin now is 7. Sodium 131, potassium 3.9, chloride 95, CO2 25, BUN 31, creatinine 0.7, glucose is 121. Arterial blood gas: PH 7.52, pCO2 of 27, PO2 of 60, bicarb 22, oxygen saturation 92%. IMPRESSION: 1. Aortic ulceration. 2. Endovascular aortic ulceration repair. 3. Acute on chronic respiratory failure. 4. Chronic obstructive pulmonary disease. 5. Gastrointestinal bleed. 6. Acute blood loss anemia. 7. Coronary artery disease. 8. Noninsulin diabetes. 9. Hypertension. 10. Obstructive sleep apnea. 11. Alcohol abuse. 12. Chronic narcotic use. RECOMMENDATIONS: 1. Continue mechanical ventilation for now. 2. Will type and screen for packed red cells and transfuse appropriately. 3. DVT and PE prophylaxis holding anticoagulation for now. 4. Stress ulcer prophylaxis. 5. Will consult GI. 6. Aggressive blood sugar control. 7. Adequate sedation. /[id number]/MODL
[2017-08-05] MEDS ORDERED: NOREPINEPHRINE BITARTRATE 4 MG in D5W 500 ML IV SCH (15:30)
[2017-08-05] MEDS ORDERED: NOREPINEPHRINE BITARTRATE 4 MG in NS 500 ML IV SCH (15:30)
--- NOTE | 2017-08-05 15:32 | CPEKG ---
Heart Rate: 110 RR Interval: 545 QRSD Interval: 124 QT Interval: 384 QTC Interval: 520 QRS [place]: 19 T Wave [place]: 71 EKG Severity - ABNORMAL ECG - EKG Impression: ATRIAL BIGEMINY EKG Impression: NONSPECIFIC INTRAVENTRICULAR CONDUCTION DELAY EKG Impression: MINIMAL ST DEPRESSION, ANTERIOR LEADS Electronically Signed By: Zuleyma Alexander 05-Aug-2017 16:36:43
[2017-08-05] MEDS ORDERED: PROTOCOL POTASSIUM 1 DOSE MISC PRN (15:49)
[2017-08-05] MEDS ORDERED: PROTOCOL K PHOSPHATE 1 DOSE IV PRN (15:49)
[2017-08-05] MEDS ORDERED: PROTOCOL CALCIUM 1 DOSE IV PRN (15:49)
[2017-08-05] MEDS ORDERED: PROTOCOL MAGNESIUM 1 DOSE IV PRN (15:49)
[2017-08-05] MEDS: NS 1,000 ML IV SCH ×2 (16:10→21:53)
[2017-08-05] MEDS ORDERED: EPINEPHrine 1 MG/10 ML SYR IVP ONE (17:02)
[2017-08-05] MEDS ORDERED: CALCIUM GLUCONATE 50 ML IV ONE (17:25)
[2017-08-05] MEDS ORDERED: CALCIUM GLUCONATE 1 GM in D5W 50 ML IV ONE (17:30)
--- NOTE | 2017-08-05 18:02 | GIREPORT ---
[facility] - Endoscopy Department Patient Name: Nabil Moralez Procedure Date: 08/05/2017 5:14 PM Patient Type: Inpatient Attending MD/ ER Physician: Marcellus Nelson MD Procedure: Upper GI endoscopy Indications: Acute post hemorrhagic anemia, Melena Providers: Marcellus Nelson MD Medicines: Fentanyl 50 micrograms IV Complications: No immediate complications. Description of Procedure: After obtaining informed consent, the endoscope was passed under direct vision. Throughout the procedure, the patient's blood pressure, pulse, and oxygen saturations were monitored continuously. The Endoscope was intro duced through the mouth, and advanced to the second part of duodenum. The [facility] er GI endoscopy was accomplished without difficulty. The patient tolerated th e procedure well. Findings: One cratered esophageal ulcer with visible vessel and stigmata of recen t bleeding was found at the gastroesophageal junction. The lesion was 7 m m in largest dimension. For hemostasis, one hemostatic clip was successfully placed. There was no bleeding during, or at the end, of the procedure. Diffuse moderate inflammation characterized by congestion (edema), eros ions and erythema was found in the gastric antrum. Biopsies were taken with a cold forceps for histology. One non-bleeding cratered duodenal ulcer with pigmented material was fo und in the duodenal bulb. The lesion was 10 mm in largest dimension. One non-bleeding cratered duodenal ulcer with no stigmata of bleeding w as found in the second portion of the duodenum. The lesion was 8 mm in lar gest dimension. One non-bleeding duodenal ulcer with visible vessel was found in the se cond portion of the duodenum. For hemostasis, two hemostatic clips were successfully placed. There was no bleeding during, or at the end, of th e procedure. Estimated Blood Loss: Estimated blood loss: none. Post Op Diagnosis: - Visible vessel esophageal ulcer. Clip was placed. - Chronic gastritis. Biopsied. - One non-bleeding duodenal ulcer with pigmented material. - One non-bleeding duodenal ulcer with no stigmata of bleeding. - One non-bleeding duodenal ulcer with visible vessel. Clips were place d. Recommendation: - NPO. - Await pathology results. - Give Protonix (pantoprazole): initiate therapy with 80 mg IV bolus, t hen 8 mg/hr IV by continuous infusion for 1 day. - Serial H and H - Thank you for allowing me to participate in the care of your patient. Attending Participation: I personally performed the entire procedure. Marcellus Nelson MD Marcellus Nelson MD 08/05/2017 6:02:07 PM This report has been signed electronicallyStlisa Nelson MD Number of Addenda: 0 Note Initiated On: 08/05/2017 5:14 PM [email or web address]
[2017-08-05] MEDS: PANTOPRAZOLE SODIUM 40 MG VIAL IVP SCH ×3 (18:39→21:12)
[2017-08-05 18:47] LABS: INR 1.37 (0.83-1.16)
--- NOTE | 2017-08-05 19:29 | POSTANESTH ---
Post Anesthetic Evaluation Cardiovascular Status: Normal, Stable, Tx Hyper/Hypo-tension Respiratory Status: Other, See Comment Level of Consciousness/Mental Status: Unconscious Pain Control: Adequate, Prn Tx Ordered Nausea/Vomiting Control: Adequate, Prn Tx Ordered Complications Possibly Related to Anesthesia: None Noted (sedated, on vent. No comp geta noted)
--- NOTE | 2017-08-05 21:41 | GCON ---
[f rep st] CONSULTATION CHIEF COMPLAINT: GI bleed. HISTORY OF PRESENT ILLNESS: 71-year-old gentleman status post thoracic aortic Endograft placed percutaneously via common femoral artery. Patient with GI bleeding. Patient underwent procedure today. He had initially presented to [facility] with a left facial droop, back pain, and left arm weakness. He had CT scan of the head and neck, as well as the chest. He had evidence of an aortic ulceration distal to the left innominate artery. CT surgery was consulted. Dr. Li evaluated the patient and felt that the patient with neurologic symptoms had progression of ulceration and should proceed with repair. He recommended Endograft. Cardiology was consulted for vascular assistance. He underwent procedure today and had been anticoagulated during procedure and reversed, but during procedure did have yris melanotic blood. With drop in hematocrit, I was asked to see patient for further evaluation. PAST MEDICAL HISTORY: Remarkable for COPD, coronary artery disease, chronic narcotic use, hypertension. ALLERGIES: Amlodipine, statins, valsartan, penicillin, lisinopril, tetracyclines. MEDICATIONS: Prior to admission, included Plavix, aspirin, albuterol, furosemide, potassium, ranitidine. SOCIAL HISTORY: Is a smoker. Heavy alcohol use. Chronic narcotic use. FAMILY HISTORY: Noncontributory per chief complaint. REVIEW OF SYSTEMS: Unobtainable. PHYSICAL EXAMINATION: GENERAL: Patient is intubated in the ICU appearing acutely ill. VITAL SIGNS: Blood pressure is 137/70, pulse of 105. He is ventilated at 100% FiO2, intubated. HEENT: Normocephalic, atraumatic. NECK: No cervical crepitus. No thyromegaly. LUNGS: Clear. CARDIAC: Normal S1, S2. ABDOMEN: Hyperactive bowel sounds. Slightly distended. Soft. EXTREMITIES: Without clubbing, cyanosis, edema. NEURO: Unable to assess. Not moving any extremities. SKIN: Warm and dry. LABORATORY DATA: Hematocrit of 22, hemoglobin 7.5, platelets of 168,000. PT of 17.5, INR of 1.42. Serum chemistries: Serum sodium 132, potassium 3.6, BUN 45, creatinine of 0.7, blood sugar 143. IMPRESSION: 71-year-old gentleman status post thoracic aortic graft, anticoagulated during procedure with significant upper gastrointestinal bleed. The patient has been reversed with clinical presentation consistent with massive upper gastrointestinal bleed. Differential, includes peptic ulcer disease, gastritis, esophagitis, history of alcohol use. RECOMMENDATIONS: Transfuse 4 units of packed red blood cells. Serial H and H. IV Protonix 80 mg bolus and 8 mg/hour drip. Proceed with emergent endoscopy. Will follow with you. /[id number]/MODL MTDD
[2017-08-06] MEDS: fentaNYL/NACL 100 ML IV SCH (00:56)
[2017-08-06] MEDS ORDERED: VANCOMYCIN 2 GM in D5W 500 ML IV ONE (01:00)
[2017-08-06] MEDS: PANTOPRAZOLE SODIUM 40 MG VIAL IVP SCH ×4 (04:07→20:32)
[2017-08-06 05:15] LABS: PLATELET COUNT 204 10^3/uL (150-400)
[2017-08-06] MEDS ORDERED: POTASSIUM Cl (KCl) 50 ML IV ONE ×3 (06:14→19:30)
--- NOTE | 2017-08-06 06:53 | PDCARPN ---
Cardiology Progress Note Chief Complaint: aortic ulceration Assessment/Plan: Assessment: HTN aortic penetrating ulceration Plan: 08/05/17 06:40 Patient confused overnight--but MS clearing up this AM If agreeable, plan for endovascular aortic ulceration repair Risks/possible complications documented NPO 08/06/17 06:51 Stable Plan extubation today s/p endograft placement will follow as needed, please call with any questions Subjective: intubated Reviewed/Discussed With: multidisciplinary team Time Spent with Patient: greater than 25 minutes Time Spent with Patient: Greater than 25 minutes spent on this patients care, greater than 50% of time spent counseling, educating, and coordinating care regarding the above mentioned plan. Objective: Vital Signs (8 Hrs) Temp Pulse Resp BP Pulse Ox 08/06/17 06:00 78 18 137/70 H 100 08/06/17 05:04 80 99 08/06/17 05:00 36.1 C 75 18 139/60 H 99 08/06/17 04:00 73 18 136/70 H 100 08/06/17 03:00 72 18 114/52 L 100 08/06/17 02:00 75 18 123/53 H 100 08/06/17 01:00 75 18 119/56 L 100 08/06/17 00:00 71 18 101/46 L 100 08/05/17 23:00 74 18 116/63 100 Intake/Output (24 Hrs) 08/05/17 08/06/17 08/07/17 05:59 05:59 05:59 Intake Total 886 5918.4 Output Total 1350 2180 Balance -464 3738.4 Intake: Oral (ml) 886 IV Intake (ml) 620 IV Infused (ml) 3898.4 Norepinephrine Bitartrate 704 4 mg In Ns 500 ml @ Per Protocol IV CONT SUMEET Rx#: [id number] Ns 1,000 ml @ 150 mls/hr 1431 IV CONT SUMEET Rx#: [id number] Ns 1,000 ml @ 3000 mls/hr 1000 IV ONCE ONE Rx#: [id number] Propofol/Emulsion 100 ml 144 @ Per Protocol IV CONT SUMEET Rx#:[id number] Vancomycin 2 gm In D5w 500 500 ml @ 250 mls/hr IV ONCE ONE Rx#:[id number] fentaNYL/NACL 100 ml @ 119.4 Per Protocol IV CONT SUMEET Rx#:[id number] Packed Red Blood Cells ( 1400 ml) Output: Urine (ml) 1350 1980 Catheter 1979 Urinal 1350 OG Tube Output (ml) 200 Large Bore (>12 German) 200 Stomach 18 German Other: Weight 83.098 kg 86.6 kg 86.6 kg Number of Voids Incontinence 2 1 Toilet 1 Number of Stools Catheter 3 Result Diagrams: 08/06/17 04:05 08/06/17 04:05 Cardiac Labs: Cardiac Lab Results (72 Hrs) 08/03/17 08/03/17 22:56 17:04 Troponin I < 0.012 < 0.012 - Physical Exam Constitutional: no apparent distress Eyes: PERRL Ears, Nose, Mouth, Throat: moist mucous membranes Cardiovascular: regular rate and rhythm Peripheral Pulses: 1+: femoral (R), femoral (L) Respiratory: no crackles Gastrointestinal: normoactive bowel sounds Genitourinary: no suprapubic tenderness Skin: no rashes Musculoskeletal: no muscular tenderness Neurologic: other (intubated) ICD10 Worksheet Patient Problems: Problems Problem Status Onset Altered mental status Acute Penetrating ulcer of aorta Acute Acute appendicitis Acute C. difficile enteritis Acute 11/03/13 Chest pain Acute Chronic Disease Mgmt/Transitional Care Acute Chronic obstructive pulmonary disease with acute exacerbation Acute Coronary artery disease Acute Cough Acute Elevated troponin Acute Exacerbation of asthma Acute MRSA (methicillin resistant Staphylococcus aureus) Acute 05/06/15
--- NOTE | 2017-08-06 07:16 | SOAPPROG ---
SOAP Progress Note Assessment/Plan: Assessment: Plan: 08/06/17 07:15 s/p endograft pulses intact, groins ok reconsult prn brodie schedule f/u CTs @ 1,3,6,12 then yearly Objective: Vital Signs Temp Pulse Resp BP Pulse Ox 36.1 C 78 18 137/70 H 100 08/06/17 05:00 08/06/17 06:00 08/06/17 06:00 08/06/17 06:00 08/06/17 06:00 Microbiology 08/05/17 10:07 Blood Panel (PCR) - Final Blood MRSA Laboratory Results 08/06/17 04:05 08/06/17 04:05 08/05/17 08/06/17 08/07/17 05:59 05:59 05:59 Intake Total 886 5918.4 Output Total 1350 2180 Balance -464 3738.4 PT 17.0 SEC (12.0-15.0) H 08/05/17 18:30 INR 1.37 (0.83-1.16) H 08/05/17 18:30 ICD10 Worksheet Patient Problems: Problems Problem Status Onset Altered mental status Acute Penetrating ulcer of aorta Acute Acute appendicitis Acute C. difficile enteritis Acute 11/03/13 Chest pain Acute Chronic Disease Mgmt/Transitional Care Acute Chronic obstructive pulmonary disease with acute exacerbation Acute Coronary artery disease Acute Cough Acute Elevated troponin Acute Exacerbation of asthma Acute MRSA (methicillin resistant Staphylococcus aureus) Acute 05/06/15
--- NOTE | 2017-08-06 08:41 | HOSPPROG ---
Hospitalist Progress Note Assessment/Plan: 71M with complicated recent history. Appendicitis s/p appendectomy in March - pathology ultimately revealed appendiceal carcinoma. He underwent further resection and intraperitoneal chemo at . Admitted here recently for uncontrolled pain which was attributed to his running out of narcotics. Discharged to [facility], then readmitted with worsening neurological status. Workup for this revealed perforated aorta. Worsening mental status yesterday lead to infectious workup. He underwent endograft placement yesterday for his aortic pathology. Subsequently had a duodenal hemorrhage which required vessel clipping by Dr Nelson. Blood culture positive for MRSA, now on vanc. # penetrating aortic arch ulcer s/p endograft by Dr Li and Diego # MRSA bacteremia - possibly skin source? also had recent abdominal surgery - defer further w/u to ID - endograft placement complicates this - on vancomycin - ID consult today # UGIB - s/p clipping of visible vessels - protonix gtt # ABLA s/p transfusion 4U PRBC # acute metabolic encephalopathy - multifactorial; alert today while vented; follow # acute respiratory failure - likely extubate today per pulm # shock, likely combination of septic and hemorrhagic - cont levophed, wean if able # htn - now hypotensive, hold meds # acute on chronic pain, continuous narcotics - will need to restart at lower dose # NAVID - CPAP # hyponatremia - resolved today with better hemodynamics # recent appendiceal carcinoma s/p intraperitoneal chemo - will follow up with Dr Peoples as outpatient # CAD - hold asa with aortic ulcer # COPD/chronic hypoxic resp failure - cont O2 # hypothyroid - synthroid # low B12 - started on replacement, MMA elevated # etOH abuse - no withdrawal # SPCM Subjective: blood cultures positive overnight for MRSA Objective: Vital Signs Temp Pulse Resp BP Pulse Ox 37.2 C 76 18 130/64 H 100 08/06/17 08:00 08/06/17 08:00 08/06/17 08:00 08/06/17 08:00 08/06/17 08:00 Microbiology 08/05/17 10:07 Blood Panel (PCR) - Final Blood MRSA Laboratory Results 08/06/17 04:05 08/06/17 04:05 08/05/17 08/06/17 08/07/17 05:59 05:59 05:59 Intake Total 886 5918.4 Output Total 1350 2180 Balance -464 3738.4 PT 17.0 SEC (12.0-15.0) H 08/05/17 18:30 INR 1.37 (0.83-1.16) H 08/05/17 18:30 45 minutes of floor CC time - Physical Exam Constitutional: chronically ill appearing, unkempt Cardiovascular: regular rate and rhythym, no murmur, rub, or gallop Respiratory: other (ET tube; coarse BS) Gastrointestinal: normoactive bowel sounds, soft, non-tender abdomen, no palpable masses ICD10 Worksheet Patient Problems: Problems Problem Status Onset C. difficile enteritis Acute 11/03/13 Chest pain Acute Coronary artery disease Acute Chronic Disease Mgmt/Transitional Care Acute Exacerbation of asthma Acute Chronic obstructive pulmonary disease with acute exacerbation Acute MRSA (methicillin resistant Staphylococcus aureus) Acute 05/06/15 Acute appendicitis Acute Elevated troponin Acute Cough Acute Altered mental status Acute Penetrating ulcer of aorta Acute
[2017-08-06] MEDS ORDERED: CALCIUM GLUCONATE 50 ML IV ONE (09:02)
[2017-08-06] MEDS: LEVOTHYROXINE 100 MCG/5 ML SYR IVP SCH (09:39)
--- NOTE | 2017-08-06 09:42 | PDINTPN ---
Brush [facility]her Progress Note Assessment/Plan: Assessment/plan: * Aortic ulcerations-status post endovascular repair * Acute respiratory failure-stable on mechanical ventilation. CPAP trial and weaning parameters adequate. -will extubate today * Alcoholism * Oxygen dependent chronic obstructive pulmonary disease * Chronic narcotic use * Obstructive sleep apnea MRSA bacteremia-source is unclear. -continue vancomycin * Coronary artery disease * Stress ulcer prophylaxis * VTE prophylaxis * Nutrition-on hold Subjective: Awake and alert. A appears comfortable on mechanical ventilation. Objective: Vital Signs Temp Pulse Resp BP Pulse Ox 37.2 C 81 15 121/60 H 100 08/06/17 08:00 08/06/17 09:00 08/06/17 09:00 08/06/17 09:00 08/06/17 09:00 Microbiology 08/05/17 10:07 Blood Panel (PCR) - Final Blood MRSA Laboratory Results 08/06/17 04:05 08/06/17 04:05 08/05/17 08/06/17 08/07/17 05:59 05:59 05:59 Intake Total 886 5918.4 Output Total 1350 2180 75 Balance -464 3738.4 -75 PT 17.0 SEC (12.0-15.0) H 08/05/17 18:30 INR 1.37 (0.83-1.16) H 08/05/17 18:30 - Time Spent With Patient Time Spent With Patient: 35 min of critical care time spent with patient. Case discussed with respiratory therapy and nursing. Physical Exam - Physical Exam General Appearance: alert, no apparent distress EENT: PERRL/EOMI, ET tube Neck: non-tender, full range of motion Respiratory: prolonged expiration, No respiratory distress, No wheezing Cardiac/Chest: normal peripheral pulses, regular rate, rhythm, systolic murmur Peripheral Pulses: 2+: carotid (R), carotid (L), femoral (R), femoral (L), dorsalis-pedis (R), dorsalis-pedis (L) Abdomen: normal bowel sounds Male Genitalia: deferred Rectal: deferred Skin: normal color, warm/dry Extremities: normal range of motion, non-tender, normal inspection, normal capillary refill Neuro/Psych: alert ICD10 Worksheet Patient Problems: Problems Problem Status Onset Altered mental status Acute Penetrating ulcer of aorta Acute Acute appendicitis Acute C. difficile enteritis Acute 11/03/13 Chest pain Acute Chronic Disease Mgmt/Transitional Care Acute Chronic obstructive pulmonary disease with acute exacerbation Acute Coronary artery disease Acute Cough Acute Elevated troponin Acute Exacerbation of asthma Acute MRSA (methicillin resistant Staphylococcus aureus) Acute 05/06/15
[2017-08-06] MEDS: BECLOMETHASONE QVAR IH SCH ×2 (11:49→21:17)
[2017-08-06] MEDS: TIOTROPIUM INHALER 18 MCG/DOSE 5 DOSE/MDI IH SCH (11:49)
[2017-08-06] MEDS ORDERED: HYDROmorphONE/DILAUDID 1 MG/ML INJ IVP ONE (12:24)
[2017-08-06] MEDS: VANCOMYCIN 1 GM in NS 250 ML IV SCH (12:33)
[2017-08-06] MEDS: NS 1,000 ML IV SCH (12:34)
--- NOTE | 2017-08-06 12:36 | SOAPPROG ---
SOAP Progress Note Assessment/Plan: Assessment: GI Bleed, duodenal ulcer and esophageal ulcer with vessels s/p clipping. No signs or symptoms of re-bleeding. Plan: 1. Clear liquids and advance diet as tolerated. 2. Continue on IV pantoprazole until tomorrow the switch to PO Pantoprazole 40 mg BID if taking PO ok. 3. Continue to monitor for any acute signs of bleeding. 08/06/17 12:33 Subjective: CC: UGI bleed Patient is s/p thoracic aortic stent. Patient with GI bleed yesterday. S/p EGD and treatment of DU and esophageal ulcer. Hct stable, no signs of bleeding. Objective: Vital Signs Temp Pulse Resp BP Pulse Ox 37.2 C 88 10 L 115/72 96 08/06/17 08:00 08/06/17 11:00 08/06/17 11:00 08/06/17 11:00 08/06/17 11:00 Microbiology 08/05/17 10:07 Blood Panel (PCR) - Final Blood MRSA Laboratory Results 08/06/17 04:05 08/06/17 04:05 08/05/17 08/06/17 08/07/17 05:59 05:59 05:59 Intake Total 886 5918.4 Output Total 1350 2180 75 Balance -464 3738.4 -75 PT 17.0 SEC (12.0-15.0) H 08/05/17 18:30 INR 1.37 (0.83-1.16) H 08/05/17 18:30 Generic Name Dose Route Start Last Admin Trade Name Freq PRN Reason Stop Dose Admin Acetaminophen 650 mg 08/03/17 15:28 08/04/17 02:23 Tylenol PO 01/30/18 15:27 650 mg Q4HRS PRN Administration Pain, Mild/Fever, Can Take PO Albuterol 2 puffs 08/04/17 09:20 08/04/17 10:42 Proventil Inhaler 01/31/18 09:19 2 puffs Q4H PRN Administration Short of Breath/Dyspnea Albuterol/Ipratropium 3 ml 08/04/17 09:20 Duoneb 01/31/18 09:19 QID PRN Short of Breath/Dyspnea Alteplase, Recombinant 2 mg 08/05/17 13:35 Cathflo Activase IVP 02/01/18 13:34 PRN PRN Per PICC line policy Calcium Gluconate 1 dose 08/05/17 15:49 Protocol Calcium IV 02/01/18 15:48 AD PRN Pt on Electrolyte Protocol Protocol Guaifenesin 1,200 mg 08/04/17 09:20 Mucinex PO 01/31/18 09:19 BID PRN CONGESTION Propofol 100 mls @ 0 mls/hr 08/05/17 13:30 08/05/17 21:52 Diprivan 10 Mg/Ml (Premix) IV 02/01/18 13:29 100 mls CONT SUMEET Administration Protocol Per Protocol Fentanyl/Sodium Chloride 100 mls @ 0 mls/hr 08/05/17 13:43 08/06/17 00:56 Fentanyl 10 Mcg/Ml (Premix) IV 08/15/17 13:42 100 mls CONT SUMEET Administration Protocol Per Protocol Norepinephrine 4 mg/ Sodium 504 mls @ 0 mls/hr 08/05/17 15:30 08/06/17 01:48 Chloride IV 02/01/18 15:29 504 mls CONT SUMEET Administration Protocol Per Protocol Sodium Chloride 1,000 mls @ 150 mls/hr 08/05/17 16:00 08/06/17 12:34 Ns IV 02/01/18 15:59 1,000 mls CONT SUMEET Administration Vancomycin HCl 1 gm/ Sodium 250 mls @ 166.667 mls/hr 08/06/17 13:00 08/06/17 12:33 Chloride IV 09/05/17 12:59 250 mls Q12H SUMEET Administration Levothyroxine Sodium 112 mcg 08/06/17 10:00 08/06/17 09:39 Synthroid Ivp Syringe IVP 02/02/18 09:59 112 mcg DAILY10 SUMEET Administration Magnesium Sulfate 1 dose 08/05/17 15:49 Protocol Magnesium IV 02/01/18 15:48 AD PRN Pt on Electrolyte Protocol Protocol Methylphenidate HCl 10 mg 08/04/17 09:20 Ritalin PO 01/31/18 09:19 TID PRN adhd Miscellaneous Medication 2 puffs 08/04/17 21:00 08/06/17 11:49 Beclomethasone Qvar 80 IH 01/31/18 20:59 Not Given BID SUMEET Miscellaneous Medication 1 ea 08/05/17 13:31 Narcotic Drip-Total All Types IV 02/01/18 13:30 PRN PRN Pyxis removal Nebivolol 10 mg 08/04/17 09:30 08/05/17 08:28 Bystolic PO 01/31/18 09:29 10 mg BID@0800,1700 SUMEET Administration Nitroglycerin 0.4 mg 08/04/17 09:20 Nitrostat SL 01/31/18 09:19 PRN PRN Chest Pain Ondansetron HCl 4 mg 08/03/17 15:28 Zofran IVP 01/30/18 15:27 Q4HRS PRN Nausea/Vomiting, Can't Take PO Ondansetron HCl 4 mg 08/03/17 15:28 08/05/17 04:49 Zofran Odt PO 01/30/18 15:27 4 mg Q4HRS PRN Administration Nausea/Vomiting, Use 1st Pantoprazole Sodium 40 mg 08/05/17 21:00 08/06/17 09:39 Protonix IVP 02/01/18 20:59 40 mg Q6H SUMEET Administration Potassium Chloride 20 meq 08/05/17 09:00 08/05/17 08:28 Klor-Con PO 02/01/18 08:59 20 meq DAILY SUMEET Administration Potassium Chloride 1 dose 08/05/17 15:49 Protocol Potassium MISC 02/01/18 15:48 AD PRN Pt on Electrolyte Protocol Protocol Potassium Phosphate 1 dose 08/05/17 15:49 Protocol K Phosphate IV 02/01/18 15:48 AD PRN Pt on Electrolyte Protocol Protocol Promethazine HCl 6.25 - 12.5 mg 08/03/17 15:28 08/03/17 15:44 Phenergan IVP 01/30/18 15:27 12.5 mg Q6HRS PRN Administration Nausea/Vomiting, Use 2nd Tamsulosin HCl 0.4 mg 08/05/17 21:00 Flomax PO 02/01/18 20:59 HS SUMEET Tiotropium [place] 18 mcg 08/05/17 09:00 08/06/17 11:49 Spiriva Handihaler IH 02/01/18 08:59 Not Given DAILY SUMEET Vitamin B Complex 1,000 mcg 08/05/17 09:00 08/05/17 08:29 Vitamin B12 PO 02/01/18 08:59 1,000 mcg DAILY SUMEET Administration Discontinued Medications Generic Name Dose Route Start Last Admin Trade Name Freq PRN Reason Stop Dose Admin Hydrocodone Bitart/Acetaminophen 1 tab 08/04/17 14:00 08/05/17 03:38 [place] 10/325 PO 08/14/17 13:59 1 tab Q6HRS PRN Administration Pain, Severe Able to Take PO Hydrocodone Bitart/Acetaminophen 0.5 tab 08/05/17 09:37 [place] 10/325 PO 08/14/17 13:59 Q6HRS PRN Pain, Severe Able to Take PO Aspirin 81 mg 08/04/17 09:00 08/04/17 09:04 Aspirin PO 01/31/18 08:59 81 mg DAILY SUMEET Administration Chlorhexidine Gluconate 1 btl 08/04/17 21:00 08/04/17 20:34 Hibiclens TP 08/04/17 21:01 1 btl DAILY@2100 SUMEET Administration Diazepam 5 mg 08/05/17 06:00 08/05/17 11:12 Valium PO 08/05/17 06:01 Not Given ONCALL ONE Enoxaparin Sodium 40 mg 08/04/17 09:00 08/04/17 10:28 Lovenox SC 01/31/18 08:59 Not Given DAILY SUMEET Epinephrine HCl Confirm 08/05/17 17:02 Epinephrine Administered 08/05/17 17:03 Dose 1 mg IVP .STK-MED ONE Famotidine 20 mg 08/04/17 21:00 08/04/17 22:31 Pepcid PO 01/31/18 20:59 20 mg BID PRN Administration Reflux Fentanyl Confirm 08/05/17 11:44 Sublimaze Administered 08/05/17 11:45 Dose 100 mcg .ROUTE .STK-MED ONE Fentanyl Confirm 08/05/17 12:35 Sublimaze Administered 08/05/17 12:36 Dose 100 mcg .ROUTE .STK-MED ONE Fentanyl Confirm 08/05/17 13:19 Sublimaze Administered 08/05/17 13:20 Dose 100 mcg .ROUTE .STK-MED ONE Furosemide 20 mg 08/04/17 14:00 08/05/17 15:15 Lasix PO 01/31/18 13:59 Not Given BID@08,14 [facility] Hydralazine HCl 10 mg 08/03/17 18:23 Apresoline IVP 01/30/18 18:22 Q6HRS PRN sbp > 140 Hydromorphone HCl 0.4 mg 08/06/17 12:24 Dilaudid IVP 08/06/17 12:25 ONCE ONE Hydromorphone/Sodium Chloride 0.2 - 0.4 mg 08/03/17 15:28 Hydromorphone IVP 08/13/17 15:27 Q4HRS PRN Pain, Severe Unable to Take PO Sodium Chloride 1,000 mls @ 0 mls/hr 08/03/17 13:45 08/03/17 14:22 Ns IV 08/03/17 13:46 1,000 mls EDNOW ONE Administration Protocol Wide Open Cefazolin Sodium/Dextrose 100 mls @ 200 mls/hr 08/05/17 10:00 08/05/17 11:12 Ancef 2 Gm IV 08/05/17 10:29 Not Given ONCALL ONE Protocol Sodium Chloride 1,000 mls @ 3,000 mls/hr 08/05/17 09:36 08/05/17 09:51 Ns IV 08/05/17 09:55 1,000 mls ONCE ONE Administration Norepinephrine 4 mg/ Dextrose 504 mls @ 0 mls/hr 08/05/17 15:30 IV 02/01/18 15:29 CONT SUMEET Protocol Per Protocol Calcium Gluconate 1 gm/ 60 mls @ 120 mls/hr 08/05/17 17:30 08/05/17 18:11 Dextrose IV 08/05/17 17:59 60 mls ONCE ONE Administration Vancomycin HCl 2 gm/ Dextrose 500 mls @ 250 mls/hr 08/06/17 01:00 08/06/17 01 :10 IV 08/06/17 02:59 500 mls ONCE ONE Administration Vancomycin HCl 1.25 gm/ Sodium 250 mls @ 166.667 mls/hr 08/06/17 13:00 Chloride IV 09/05/17 12:59 Q12H SUMEET Potassium Chloride 50 mls @ 50 mls/hr 08/06/17 06:14 08/06/17 06:50 Potassium Cl 20 Meq (Premix) IV 08/06/17 07:13 50 mls ONCE ONE Administration Calcium Gluconate 50 mls @ 100 mls/hr 08/06/17 09:02 Calcium Gluconate 1 Gm (Premix) IV 08/06/17 09:31 ONCE ONE Iopamidol Confirm 08/03/17 15:14 Isovue-370 Administered 08/03/17 15:15 Dose 100 ml IV .STK-MED ONE Iopamidol Confirm 08/03/17 15:43 Isovue-370 Administered 08/03/17 15:44 Dose 100 ml IV .STK-MED ONE Iopamidol Confirm 08/04/17 09:40 Isovue-370 Administered 08/04/17 09:41 Dose 100 ml IV .STK-MED ONE Levothyroxine Sodium 112 mcg 08/05/17 09:00 08/05/17 08:28 Synthroid PO 02/01/18 08:59 112 mcg DAILY SUMEET Administration Oxycodone HCl 5 - 10 mg 08/03/17 15:28 08/04/17 13:06 Oxycodone Ir PO 08/13/17 15:27 5 mg Q3HRS PRN Administration Pain, Severe Able to Take PO Pantoprazole Sodium 40 mg 08/05/17 15:15 08/05/17 16:10 Protonix IVP 02/01/18 15:14 40 mg DAILY SUMEET Administration Pantoprazole Sodium 40 mg 08/05/17 18:00 08/05/17 18:49 Protonix IVP 08/05/17 18:06 40 mg Q5M SUMEET Administration Pantoprazole Sodium 40 mg 08/05/17 18:00 08/05/17 18:50 Protonix IVP 02/01/18 17:59 40 mg Q6H SUMEET Administration Propofol Confirm 08/05/17 11:45 Diprivan 10 Mg/Ml (Premix) Administered 08/05/17 11:46 Dose 500 mg IV .STK-MED ONE Senna/Docusate Sodium 2 tab 08/04/17 21:00 08/04/17 20:32 Senokot-S PO 08/04/17 21:01 2 tab ONCE ONE Administration Tamsulosin HCl 0.4 mg 08/04/17 21:00 Flomax PO 01/31/18 20:59 HS SUMEET Tamsulosin HCl 0.4 mg 08/04/17 15:45 08/04/17 15:43 Flomax PO 08/04/17 15:46 0.4 mg ONCE ONE Administration Vancomycin HCl 1 each 08/06/17 00:30 Vancomycin Pharmacy To Dose, 15-20 Mcg/Ml [facility] 02/02/18 00:29 AD [facility] Protocol Physical Exam - Physical Exam General Appearance: alert, no apparent distress Respiratory: lungs clear Cardiac/Chest: regular rate, rhythm Abdomen: normal bowel sounds, non-tender, soft Skin: normal color, warm/dry Neuro/Psych: alert, oriented x 3 ICD10 Worksheet Patient Problems: Problems Problem Status Onset Altered mental status Acute Penetrating ulcer of aorta Acute Acute appendicitis Acute C. difficile enteritis Acute 11/03/13 Chest pain Acute Chronic Disease Mgmt/Transitional Care Acute Chronic obstructive pulmonary disease with acute exacerbation Acute Coronary artery disease Acute Cough Acute Elevated troponin Acute Exacerbation of asthma Acute MRSA (methicillin resistant Staphylococcus aureus) Acute 05/06/15
[2017-08-06] MEDS ORDERED: VANCOMYCIN 1.25 GM in NS 250 ML IV SCH (13:00)
[2017-08-06] MEDS: HYDROCODONE/APAP 10/325 TAB PO PRN ×3 (14:22→22:42)
--- NOTE | 2017-08-06 14:54 | ASMTCMCOM ---
CM Note CM Note Notes: Assisted patient and friend with MPOA paperwork. Patient would like Justyn Stroud [phone] to be his MPOA. Paperwork in the chart. He would like to return [facility] for Rehab on discharge. Date Signed: 08/06/2017 02:53 PM Electronically Signed By:Apolonia Altamirano LCSW
[2017-08-06] MEDS: guaiFENesin 600 MG TAB.ER PO PRN (17:45)
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
[2017-08-06] MEDS: PROMETHAZINE HCL 25 MG/ML INJ IVP PRN (23:53)
[2017-08-07] MEDS: VANCOMYCIN 1 GM in NS 250 ML IV SCH (01:15)
[2017-08-07] MEDS: PANTOPRAZOLE SODIUM 40 MG VIAL IVP SCH ×3 (02:28→15:42)
[2017-08-07] MEDS: HYDROCODONE/APAP 10/325 TAB PO PRN ×5 (02:28→20:16)
[2017-08-07 06:01] LABS: PLATELET COUNT 167 10^3/uL (150-400)
[2017-08-07] MEDS ORDERED: CALCIUM GLUCONATE 50 ML IV ONE (08:17)
[2017-08-07] MEDS ORDERED: POTASSIUM Cl (KCl) 50 ML IV ONE ×2 (08:18)
--- NOTE | 2017-08-07 09:01 | PDINTPN ---
Locksmith Helper Progress Note Assessment/Plan: Assessment/plan: * Aortic ulcerations-status post endovascular repair * Acute respiratory failure-stable off mechanical ventilation * Alcoholism * Oxygen dependent chronic obstructive pulmonary disease * Chronic narcotic use * Obstructive sleep apnea * MRSA bacteremia-source is unclear. -continue vancomycin * Coronary artery disease * Stress ulcer prophylaxis * VTE prophylaxis * Nutrition-eating * Disposition-stable for transfer to PCU Subjective: Sitting up in bed eating. Comfortable. Denies any pain. Objective: Vital Signs Temp Pulse Resp BP Pulse Ox 36.9 C 91 22 H 109/56 L 97 08/07/17 08:00 08/07/17 08:00 08/07/17 08:00 08/07/17 08:00 08/07/17 08:00 Microbiology 08/05/17 10:07 Blood Panel (PCR) - Final Blood MRSA Laboratory Results 08/07/17 05:40 08/07/17 05:40 08/06/17 08/07/17 08/08/17 05:59 05:59 05:59 Intake Total 5918.4 1929 Output Total 2180 750 Balance 3738.4 1179 PT 17.0 SEC (12.0-15.0) H 08/05/17 18:30 INR 1.37 (0.83-1.16) H 08/05/17 18:30 - Time Spent With Patient Time Spent With Patient: 25 min of time spent with patient, over 1/2 involved with coordination of care or counseling Physical Exam - Physical Exam General Appearance: alert, no apparent distress EENT: PERRL/EOMI Neck: non-tender, full range of motion, supple, normal inspection Respiratory: prolonged expiration, No respiratory distress, No wheezing Cardiac/Chest: normal peripheral pulses, regular rate, rhythm, systolic murmur Peripheral Pulses: 2+: carotid (R), carotid (L), femoral (R), femoral (L), dorsalis-pedis (R), dorsalis-pedis (L) Abdomen: normal bowel sounds, non-tender, soft Male Genitalia: deferred Rectal: deferred Skin: normal color, warm/dry Extremities: normal range of motion, non-tender, normal inspection, normal capillary refill Neuro/Psych: alert ICD10 Worksheet Patient Problems: Problems Problem Status Onset Altered mental status Acute Penetrating ulcer of aorta Acute Acute appendicitis Acute C. difficile enteritis Acute 11/03/13 Chest pain Acute Chronic Disease Mgmt/Transitional Care Acute Chronic obstructive pulmonary disease with acute exacerbation Acute Coronary artery disease Acute Cough Acute Elevated troponin Acute Exacerbation of asthma Acute MRSA (methicillin resistant Staphylococcus aureus) Acute 05/06/15
[2017-08-07] MEDS: BECLOMETHASONE QVAR IH SCH (09:11)
[2017-08-07] MEDS: TIOTROPIUM INHALER 18 MCG/DOSE 5 DOSE/MDI IH SCH (09:11)
[2017-08-07] MEDS ORDERED: PROTOCOL POTASSIUM 1 DOSE MISC PRN (09:18)
--- NOTE | 2017-08-07 10:00 | PCMIDPN ---
Assessment/Plan: MRSA bacteremia, ECHO 07/30 showed some small pericardial effusion described as fibrinous appearance. No significant valve disease. WBC down today and Cr stable, normal. Chronic back pain in lumbar distribution, patient reports it is stable. --repeat limited ECHO to eval pericardial effusion --check vanco T today --continue vancomycin --repeat blood cx in the AM --may need MRI Lumbar spine --discussed aortic ulceration w CT surgery and did not appear to be mycotic in nature --patient will need prolonged IV therapy and antibiotic suppression since aortic graft placed while bacteremic meds Vancomycin 1gm IV q12 micro 08/05 blood cx 1 set MRSA Subjective: feeling okay no new c/o low back pain stable Objective: Vital Signs Temp Pulse Resp BP Pulse Ox 36.9 C 91 22 H 109/56 L 97 08/07/17 08:00 08/07/17 08:00 08/07/17 08:00 08/07/17 08:00 08/07/17 08:00 Microbiology 08/05/17 10:07 Blood Panel (PCR) - Final Blood MRSA Laboratory Results 08/07/17 05:40 08/07/17 05:40 08/06/17 08/07/17 08/08/17 05:59 05:59 05:59 Intake Total 5918.4 1929 Output Total 2180 750 Balance 3738.4 1179 - Physical Exam General Appearance: alert, no apparent distress EENT: No thrush Respiratory: other (decreased bs throughout), No accessory muscle use Neck: supple Cardiac/Chest: regular rate, rhythm, other (very difficult cardiac exam distant heart sounds) Extremities: pedal edema Abdomen: non-tender, soft Skin: pallor, other (Scattered ecchymosis of the upper extremities), No jaundice , No rash Neuro/Psych: alert, normal mood/affect, oriented x 3 - Time Spent With Patient Time Spent with Patient: greater than 35 minutes (Care reviewed with Dr. Guzman) Time Spent with Patient: Greater than 35 minutes spent on this patients care, greater than 50% of time spent counseling, educating, and coordinating care regarding the above mentioned plan. ICD10 Worksheet Patient Problems: Problems Problem Status Onset Altered mental status Acute Penetrating ulcer of aorta Acute Acute appendicitis Acute C. difficile enteritis Acute 11/03/13 Chest pain Acute Chronic Disease Mgmt/Transitional Care Acute Chronic obstructive pulmonary disease with acute exacerbation Acute Coronary artery disease Acute Cough Acute Elevated troponin Acute Exacerbation of asthma Acute MRSA (methicillin resistant Staphylococcus aureus) Acute 05/06/15
[2017-08-07] MEDS: LEVOTHYROXINE 100 MCG/5 ML SYR IVP SCH (11:04)
[2017-08-07] MEDS: LEVOTHYROXINE 112 MCG TAB PO SCH (11:10)
[2017-08-07] MEDS ORDERED: K PHOS 10 MMOL in D5W 250 ML IV ONE (12:00)
--- NOTE | 2017-08-07 12:18 | WOCRNPDOC ---
WOCRN Advanced Assessment Note - Skin Integrity Problem, Advanced Assess Sacrum Dressing Type: Mepilex Border Dressing Description: Clean/Dry, Intact Exudate Amount: None Integumentary Issue Intervention: Visualized Under Dressing Elana Wound Tissue: Blanching, Erythema, Intact Skin Integrity Problem Comment: Patient assisted to stand from chair with help from NICOLA Diaz. Mepilex sacral in place and clean, dry, and intact. Skin in coccyx , sacral and on bilateral gluteal cleft is pink but remains intact with no open wounds. Skin is currently blanching. Discussed with patient the importance of offloading the skin frequently to keep skin healthy. Patient seems to understand but states that he "hates the turns". Wound care will not continue to follow. Please reconsult PRN.
--- NOTE | 2017-08-07 13:18 | HOSPPROG ---
Hospitalist Progress Note Assessment/Plan: DIAGNOSES: # acute encephalopathy, multifactorial, with likely ongoing encephalopathy or dementing process # aortic ulcer, penetrating with contained mediastinal hematoma * status post endovascular repair with endograft placement # MRSA bacteremia # recently identified vitamin B12 deficiency * He had received few doses of parenteral vitamin B12 last week but B12 replacements have not been resumed here so far # acute blood loss anemia now stable after multiple transfusions * 4 units of packed red blood cells transfused perioperatively # failure to thrive # severe protein calorie malnutrition, albumin 1.2 * Need supplementation but he has had very poor appetite so far over the last couple weeks force here # marked good deconditioning and gait instability * Deconditioning from inactivity, B12 deficiency, alcohol and marijuana, and multiple other factors involved # appendiceal carcinoma, recently diagnosed with resection and some type of intraperitoneal therapy at [facility] # chronic pain syndrome with pain in multiple locations with chronic use of daily prescribed narcotic medicine # chronic respiratory failure with chronic hypoxemia on chronic oxygen # chronic COPD stable at this time # chronic obstructive sleep apnea, intolerant of CPAP so has never used # hypothyroidism * TSH was in normal range last week # history of alcohol abuse and daily marijuana use # diabetes mellitus type 2 # CAD PLANS: * continue postoperative care * I reviewed in detail with Dr. Carolann Combs; as he has a bacteremia and has now an endovascular prosthesis placed will need lifelong antibiotic therapy and will need to be sure that he clears his cultures here at this time. ? Wonder if this could be a mycotic ulceration of the aorta that has been identified * I will resume his vitamin B12 treatments here at this time and he will need to keep on those for lifetime * Fall risk precautions * DVT prophylaxis when that is safe from a surgical standpoint but probably not safe this time * Follow blood cultures for clearance of the MRSA * Follow blood counts closely for any worsening anemia * He will again need senior living facility care at the time of discharge here due to mentation issues as well as fall risk; I question whether he will ever be able to safely live alone in home again, however will see how things progress as we replace is nutrition and get his infection treated, hopefully can keep him away from alcohol and minimize narcotic use * Nutritional supplements and follow nutritional measures closely The seen by me today on hospitals rounds and multidisciplinary rounds I reviewed in detail with doctors Carolann Combs and Santi Neves SUBJECTIVE: Patient still having chronic back pain and abdominal pain as well as headaches and leg pains Very difficult to gauge this compared to his symptoms last week or from his chronic symptoms based on his answers No difficulty breathing Still with poor appetite OBJECTIVE Vitals reviewed: Intermittently mildly tachypneic but no other abnormal vital signs Experiential Therapist, my review: Sinus Exam: alert oriented person and place, off a bit on date, still a bit slow in conversation but perhaps better than last week skin warm dry color ok resps not labored lungs clear BSs heart regular abd soft nondistended nontender, bowel sounds present limbs warm, no edema iv site ok Laboratory data: Albumin 1.9, phos 2.1, Mag okay, potassium 3.9 Normal sodium and renal function Normal liver numbers White blood cell count to down to 12, hemoglobin slightly down at 10 from yesterday's 11 Objective: Vital Signs Temp Pulse Resp BP Pulse Ox 36.9 C 99 19 120/51 L 99 08/07/17 08:00 08/07/17 12:00 08/07/17 12:00 08/07/17 12:00 08/07/17 12:00 Microbiology 08/05/17 10:07 Blood Panel (PCR) - Final Blood MRSA Laboratory Results 08/07/17 05:40 08/07/17 05:40 08/06/17 08/07/17 08/08/17 06:59 06:59 06:59 Intake Total 5918.4 1929 Output Total 2180 750 Balance 3738.4 1179 PT 17.0 SEC (12.0-15.0) H 08/05/17 18:30 INR 1.37 (0.83-1.16) H 08/05/17 18:30 - Time Spent With Patient Time Spent with Patient: greater than 35 minutes Time Spent with Patient: Greater than 35 minutes spent on this patients care, greater than 50% of time spent counseling, educating, and coordinating care regarding the above mentioned plan. ICD10 Worksheet Patient Problems: Problems Problem Status Onset Altered mental status Acute Penetrating ulcer of aorta Acute Acute appendicitis Acute C. difficile enteritis Acute 11/03/13 Chest pain Acute Chronic Disease Mgmt/Transitional Care Acute Chronic obstructive pulmonary disease with acute exacerbation Acute Coronary artery disease Acute Cough Acute Elevated troponin Acute Exacerbation of asthma Acute MRSA (methicillin resistant Staphylococcus aureus) Acute 05/06/15
[2017-08-07] MEDS ORDERED: CYANO/VITAMIN B12 1000 MCG/ML VIAL IM ONE (13:19)
[2017-08-07] MEDS: VANCOMYCIN 1.25 GM in NS 250 ML IV SCH (14:20)
--- NOTE | 2017-08-07 15:22 | ECHO ---
[email or web address] [address] Main: [phone] Fax: Transthoracic Echocardiogram Name: HALLIE GOLDSTEIN MR#: [id number] Study Date: 08/07/2017 Study Time: 01:55 PM Date of : 1945 Age: 71 year(s) Height: 182.9 cm (72 in.) Weight: 91.63 kg (202 lb.) BSA: 2.14 m2 Gender: Male Examination: Echo Indication: MRSA, Follow up effusion Image Quality: Contrast: Requested by: Carolann Combs BP: 114 mmHg/55 mmHg Heart Rate: Rhythm: Normal sinus rhythm Indication: MRSA, Follow up effusion Procedure Staff Spinning Bath Person: Tariq Santillan RDCS Reading Physician: Tad Martinez MD Requesting Provider: Conclusions: Normal size left ventricle. Normal global systolic LV function. EF is 70 %. No regional wall motion abnormality. Diastolic dysfunction is present. . Trivial tricuspid valve regurgitation. Fibrinous debris anterior pericardial space, pericardial fat. No evidence of tamponade. Compared to the previous exam of 07/31/17 there has been no significant change.. Measurements: Chambers Valvular Assessment AV/MV Valvular Assessment TV/PV Normal Normal Normal Name Value Range Name Value Range Name Value Range Ao Dania (MM): 3.3 cm (2.2 cm-3.7 AV Vmax: 1.30 m/s (1 m/s-1.7 PV Vmax: 0.92 m/s (0.6 m/s-0.9 cm) m/s) m/s) IVSd (2D): 1.1 cm (0.6 cm-1.1 AV maxP mmHg ( - ) PV PGmax: 3 mmHg ( - ) cm) LVOT Vmax: 1.00 m/s (0.7 m/s-1.1 LVDd (2D): 4.2 cm (4.2 cm-5.9 m/s) cm) MV E Vmax: 0.79 m/s ( - ) LVDs (2D): 2.6 cm (2.1 cm-4 MV A Vmax: 1.10 m/s ( - ) cm) MV E/A: 0.72 ( - ) LVPWd (2D): 1.0 cm (0.6 cm-1 cm) LVEF (2D): 70 (>=54 %) Continued Measurements: Chambers Valvular Assessment AV/MV Name Value Name Value LADs Lon.3 cm MV E' Septal: 0.05 m/s Patient: HALLIE GOLDSTEIN Study Date: 08/07/2017 Page 1 of 2 01:55 PM LA Area: 20.6 cm2 MV E/E' Septal: 15.90 Findings: Left Ventricle: Normal size left ventricle. Mild concentric LV hypertrophy. Normal global systolic LV function. EF is 70 %. No regional wall motion abnormality. Diastolic dysfunction is present. . Right Ventricle: Normal size right ventricle. Normal RV function. Left Atrium: The left atrium is normal in size. Right Atrium: The right atrium is normal in size. Mitral Valve: The mitral valve is normal in appearance and function. There is no mitral valve regurgitation. Aortic Valve: The aortic valve is tri-leaflet. The aortic valve is normal in appearance and function. Tricuspid Valve: The tricuspid valve appears normal. Trivial tricuspid valve regurgitation. Pulmonic Valve: The pulmonic valve is normal in appearance and function. Aorta: The aorta is normal. Pericardium: Fibrinous debris anterior pericardial space, pericardial fat. No evidence of tamponade. Compared to the previous exam of 07/31/17 there has been no significant change.. (No Signature Object) Patient: HALLIE GOLDSTEIN Study Date: 08/07/2017 Page 2 of 2 01:55 PM [id number]
[2017-08-07] MEDS: ALBUTEROL 60 PUFFS/8 GM MDI IH PRN (19:42)
[2017-08-07] MEDS: BECLOMETHASONE QVAR 80 REDIHALER 120 INH/10.6 GM MDI IH SCH (20:05)
[2017-08-07] MEDS: PANTOPRAZOLE SODIUM 40 MG TAB PO SCH (20:16)
[2017-08-07] MEDS ORDERED: POTASSIUM CL 10 MEQ TAB PO ONE (20:29)
[2017-08-07] MEDS: NS 1,000 ML IV SCH (21:34)
[2017-08-08] MEDS: VANCOMYCIN 1.25 GM in NS 250 ML IV SCH ×2 (00:55→12:38)
[2017-08-08] MEDS: HYDROCODONE/APAP 10/325 TAB PO PRN ×4 (06:01→19:47)
[2017-08-08] MEDS: NS 1,000 ML IV SCH (06:21)
[2017-08-08] MEDS ORDERED: POTASSIUM CL 10 MEQ TAB PO ONE (10:05)
[2017-08-08] MEDS: LEVOTHYROXINE 112 MCG TAB PO SCH (10:27)
[2017-08-08] MEDS: PANTOPRAZOLE SODIUM 40 MG TAB PO SCH ×2 (10:28→19:47)
[2017-08-08] MEDS: CYANO/VITAMIN B12 1000 MCG TAB PO SCH (10:30)
[2017-08-08] MEDS: TIOTROPIUM INHALER 18 MCG/DOSE 5 DOSE/MDI IH SCH (10:51)
[2017-08-08] MEDS: BECLOMETHASONE QVAR 80 REDIHALER 120 INH/10.6 GM MDI IH SCH ×2 (10:52→22:11)
--- NOTE | 2017-08-08 11:47 | PCMIDPN ---
Assessment/Plan: 1. Postop day 3 status post aortic endo graft placement for descending thoracic aorta penetrating ulceration--found to also have concomitant MRSA bacteremia: Etiology of MRSA bacteremia unclear, query skin source. Continue vancomycin; dose increased by Dr. Combs. Repeat trough has been ordered as well. In so far as his aortic ulceration is concerned, this is not felt to be mycotic. Of note, he did have an RPR obtained during previous hospitalization in the setting of altered mental status. This was negative. Will obtain syphilis IgG , as occasionally with tertiary syphilis, RPR can serorevert, although would expect an aortitis verses isolated ulceration, per se, with tertiary syphilis. He is also agreeable to an HIV antibody test. PICC line will need to be changed at some point in the near future given placement during bacteremia. As outlined by Dr. Combs, the patient will need chronic suppression moving forward given and a graft placed during bacteremia. 2. Oral candidiasis: Start clotrimazole troches. 08/08/17 11:50 Subjective: Patient is feeling much better overall. Vancomycin dose increased for low trough. Status post repeat echocardiogram which shows no significant change compared with prior. Fibrinous debris and pericardial space without tamponade. Objective: Vancomycin 1.25 g IV q.12 hours day 2 No fevers (the patient has never had a fever) Vital Signs Temp Pulse Resp BP Pulse Ox 36.8 C 103 H 17 131/70 H 96 08/08/17 08:00 08/08/17 10:53 08/08/17 10:53 08/08/17 08:00 08/08/17 10:53 Microbiology 08/05/17 10:07 Blood Culture - Final Blood MRSA Blood Panel (PCR) - Final MRSA Laboratory Results 08/07/17 05:40 08/08/17 05:45 08/07/17 08/08/17 08/09/17 05:59 05:59 05:59 Intake Total 1929 2150 Output Total 750 1900 550 Balance 1179 250 -550 Repeat blood cultures from August 08 are pending Previous cultures August 05 1 set drawn, both bottles with MRSA - Physical Exam General Appearance: no apparent distress, obese, other (Conjunctival hemorrhage , right eye) EENT: thrush, other (Bilateral buccal mucosa) Respiratory: lungs clear Cardiac/Chest: regular rate, rhythm, other (Difficult to hear heart sounds, distant) Extremities: other (PICC line right upper extremity PICC. Patient with anasarca . all limbs are edematous) Abdomen: other (Right groin dressing in place; I did not remove. Umbilical scar looks fine. Abdomen obese and soft.) Skin: No embolic lesions ICD10 Worksheet Patient Problems: Problems Problem Status Onset Altered mental status Acute Penetrating ulcer of aorta Acute Acute appendicitis Acute C. difficile enteritis Acute 11/03/13 Chest pain Acute Chronic Disease [facility]/Transitional Care Acute Chronic obstructive pulmonary disease with acute exacerbation Acute Coronary artery disease Acute Cough Acute Elevated troponin Acute Exacerbation of asthma Acute MRSA (methicillin resistant Staphylococcus aureus) Acute 05/06/15
[2017-08-08] MEDS ORDERED: K PHOS 10 MMOL in D5W 250 ML IV ONE (12:00)
[2017-08-08] MEDS ORDERED: CALCIUM GLUCONATE 50 ML IV ONE (12:54)
[2017-08-08] MEDS: CLOTRIMAZOLE 10 MG TROCHE PO SCH ×3 (13:19→22:16)
[2017-08-08] MEDS ORDERED: IOPAMIDOL (ISOVUE 370) 100 ML BTL IV ONE (14:08)
[2017-08-08 15:12] LABS: HIV TYPE 1 AND 2 NEGATIVE (NEGATIVE)
--- NOTE | 2017-08-08 15:53 | HOSPPROG ---
Hospitalist Progress Note Assessment/Plan: DIAGNOSES: # acute encephalopathy, multifactorial, with likely ongoing encephalopathy or dementing process * B12 deficiency may be a significant factor * Other nutritional factors may be important * Narcotics, marijuana may also be significant factors * TSH tested normal last week and RPR was also negative # aortic ulcer, penetrating with contained mediastinal hematoma * status post endovascular repair with endograft placement * CT chest has not yet been read by radiology but I do not see a leak on my review of images # MRSA bacteremia * Source unknown * Currently receiving vancomycin # recently identified vitamin B12 deficiency * He had received few doses of parenteral vitamin B12 last week but B12 replacements have not been resumed here so far # acute blood loss anemia now stable after multiple transfusions * 4 units of packed red blood cells transfused perioperatively * Some drop in hemoglobin ongoing will recheck for stability # failure to thrive # severe protein calorie malnutrition, albumin 1.2 * Appetite finally beginning to improve and hopefully will be able to get his calorie and protein intake up quickly # marked deconditioning and gait instability * Deconditioning from inactivity, B12 deficiency, alcohol and marijuana, and multiple other factors involved # 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 He in the past says he has had benefit from chiropractic, physical therapy, and tens unit; none of those available here but once he leaves here hopefully he can re-engage in those therapies; will be best to minimize narcotic use given all of his other multiple issues # chronic respiratory failure with chronic hypoxemia on chronic oxygen # chronic COPD stable at this time # chronic obstructive sleep apnea, intolerant of CPAP so has never used # hypothyroidism * TSH was in normal range last week # history of alcohol abuse and daily marijuana use # diabetes mellitus type 2 # CAD PLANS: * continue postoperative care; for his chronic back pain will add Lidoderm and Flexeril at this time * I reviewed in detail with Dr. Roselia Bishop; as he has a bacteremia and has now an endovascular prosthesis placed will need lifelong antibiotic therapy and will need to be sure that he clears his cultures here at this time. Last cultures done today will be followed * Continue vitamin B12 treatments here at this time and he will need to continue for lifetime * Fall risk precautions * I reviewed with Nancy Hill; if no bleeding seen on his CT angio chest today they would be wanting to start low-dose aspirin from a CV surgery standpoint for his aortic ulcer with stent, I will need to review this with Dr. Nelson of GI as he also had bleeding duodenal ulcer here and required transfusion * DVT prophylaxis when that is safe from a surgical standpoint but probably not safe this time * Follow blood counts closely for any worsening anemia * He will again need alf facility care at the time of discharge here due to mentation issues as well as fall risk; I question whether he will ever be able to safely live alone in home again, however will see how things progress as we replace is nutrition and get his infection treated, hopefully can keep him away from alcohol and minimize narcotic use * Nutritional supplements and follow nutritional measures closely The seen by me today on hospitals rounds and multidisciplinary rounds I reviewed in detail with doctors Roselia turner and Santi Neves as well as Nancy Hill SUBJECTIVE: Chronic lumbar back pain continues without radicular symptoms No chest or abdominal pain to speak of this afternoon, no dyspnea Appetite may be getting a little bit better just comes back from CT had quite a bit of difficulty with back discomfort getting in and out of CT OBJECTIVE Vitals reviewed: Some mild tachycardia otherwise stable without fever Medical Affairs Director, my review: Sinus Exam: alert oriented person and place, off a bit on date, still a bit slow in conversation but perhaps better than last week skin warm dry color ok resps not labored lungs clear BSs heart regular abd soft nondistended nontender, bowel sounds present limbs warm, no edema iv site ok Laboratory data: Potassium and phosphorus both a bit low today chemistries otherwise good CT scan of chest today, with angiogram: This has not been read by radiologist yet but I reviewed the images, I do not see any sign of leak or other acute issues at this time but will review with CV surgery and Radiology once they have seen the study Objective: Vital Signs Temp Pulse Resp BP Pulse Ox 36.8 C 111 H 19 136/87 H 96 08/08/17 08:00 08/08/17 15:17 08/08/17 15:17 08/08/17 15:17 08/08/17 15:17 Microbiology 08/05/17 10:07 Blood Culture - Final Blood MRSA Blood Panel (PCR) - Final MRSA Laboratory Results 08/07/17 05:40 08/08/17 05:45 08/07/17 08/08/17 08/09/17 06:59 06:59 06:59 Intake Total 1929 2150 Output Total 750 2300 300 Balance 1179 -150 -300 PT 17.0 SEC (12.0-15.0) H 08/05/17 18:30 INR 1.37 (0.83-1.16) H 08/05/17 18:30 - Time Spent With Patient Time Spent with Patient: greater than 35 minutes Time Spent with Patient: Greater than 35 minutes spent on this patients care, greater than 50% of time spent counseling, educating, and coordinating care regarding the above mentioned plan. ICD10 Worksheet Patient Problems: Problems Problem Status Onset Altered mental status Acute Penetrating ulcer of aorta Acute Acute appendicitis Acute C. difficile enteritis Acute 11/03/13 Chest pain Acute Chronic Disease Mgmt/Transitional Care Acute Chronic obstructive pulmonary disease with acute exacerbation Acute Coronary artery disease Acute Cough Acute Elevated troponin Acute Exacerbation of asthma Acute MRSA (methicillin resistant Staphylococcus aureus) Acute 05/06/15
[2017-08-08] MEDS: CYCLOBENZAPRINE 10 MG TAB PO SCH ×2 (16:20→22:16)
[2017-08-08] MEDS: LIDOCAINE 4%/MENTHOL 1% PATCH TD SCH (16:20)
[2017-08-08] MEDS: PATCH REMOVAL 1 EA PATCH TD SCH (22:13)
[2017-08-09] MEDS: VANCOMYCIN 1.25 GM in NS 250 ML IV SCH ×2 (01:18→17:06)
[2017-08-09] MEDS: CLOTRIMAZOLE 10 MG TROCHE PO SCH ×5 (05:41→21:58)
[2017-08-09] MEDS ORDERED: POTASSIUM CL 10 MEQ TAB PO ONE ×2 (07:36→20:03)
[2017-08-09] MEDS ORDERED: CALCIUM GLUCONATE 50 ML IV ONE (07:37)
[2017-08-09] MEDS: HYDROCODONE/APAP 10/325 TAB PO PRN ×4 (08:51→22:58)
[2017-08-09] MEDS: LEVOTHYROXINE 112 MCG TAB PO SCH (08:51)
[2017-08-09] MEDS: CYCLOBENZAPRINE 10 MG TAB PO SCH ×3 (08:51→21:56)
[2017-08-09] MEDS: PANTOPRAZOLE SODIUM 40 MG TAB PO SCH ×2 (08:51→21:56)
[2017-08-09] MEDS: CYANO/VITAMIN B12 1000 MCG TAB PO SCH (08:51)
[2017-08-09] MEDS: LIDOCAINE 4%/MENTHOL 1% PATCH TD SCH (08:52)
[2017-08-09] MEDS: BECLOMETHASONE QVAR 80 REDIHALER 120 INH/10.6 GM MDI IH SCH ×2 (09:02→20:57)
[2017-08-09] MEDS: TIOTROPIUM INHALER 18 MCG/DOSE 5 DOSE/MDI IH SCH (09:02)
[2017-08-09] MEDS: ALBUTEROL 60 PUFFS/8 GM MDI IH PRN (09:08)
--- NOTE | 2017-08-09 12:00 | ASMTCMCOM ---
CM Note CM Note Notes: CM spoke to NICOLA Walls regarding d/c POC. The plan remains the same. Pt will d/c to [facility] when medically stable. Updates sent to [facility]. CM to follow. Plan: [facility] Date Signed: 08/09/2017 11:59 AM Electronically Signed By:SILVERIO Gilliam
--- NOTE | 2017-08-09 13:47 | PCMIDPN ---
Assessment/Plan: Assessment: MRSA bacteremia. Initial blood cultures on 08/05/2017 growing MRSA. This culture was drawn just prior to into graft placement over thoracic aorta area thought to be ulcerative and slowly hemorrhaging. Repeat blood cultures drawn on 08/08/2017 are now also growing Gram-positive cocci in cultures. Initial blood culture was drawn prior to PICC placement. Nevertheless we will discontinue the PICC today and use peripheral IVs for vancomycin therapy and replace a PICC tomorrow for established IV access. I am very concerned that the initial aortic ulceration reflects a mycotic etiology and that the MRSA infection will be prove difficult to clear without resection. At this point we will remove the PICC line and replace with IV access tomorrow. We will continue the vancomycin dose at an increased level due to a trough level of 9.8. If his blood cultures remain positive will discuss with cardiothoracic surgery about next steps. Plan: 1. Continue IV vancomycin although increase dose to 1.5 g IV q.12 hours. 2. discontinue PICC line that was placed on 08/05/2017. 3. Peripheral IV use for antibiotic doses through tomorrow. 4. Replace PICC line on 08/10/2017. 5. Repeat blood cultures on 08/10/2017. Subjective: Patient is sitting in his hospital bed. No significant change in condition. Denies fevers or chills. Objective: Vancomycin # 3 Vital Signs Temp Pulse Resp BP Pulse Ox 36.7 C 122 H 18 149/82 H 93 08/09/17 11:45 08/09/17 11:45 08/09/17 11:45 08/09/17 11:45 08/09/17 11:45 Laboratory Results 08/07/17 05:40 08/09/17 05:40 08/08/17 08/09/17 08/10/17 05:59 05:59 05:59 Intake Total 2150 3800 1815 Output Total 1900 2400 Balance 250 1400 1815 - Physical Exam General Appearance: WD/WN, alert, no apparent distress, non-toxic Respiratory: lungs clear, normal breath sounds, No respiratory distress Cardiac/Chest: regular rate, rhythm, No tachycardia Extremities: non-tender, normal inspection Skin: normal color, warm/dry, No rash Neuro/Psych: alert, normal mood/affect, oriented x 3 ICD10 Worksheet Patient Problems: Problems Problem Status Onset Altered mental status Acute Penetrating ulcer of aorta Acute Acute appendicitis Acute C. difficile enteritis Acute 11/03/13 Chest pain Acute Chronic Disease Mgmt/Transitional Care Acute Chronic obstructive pulmonary disease with acute exacerbation Acute Coronary artery disease Acute Cough Acute Elevated troponin Acute Exacerbation of asthma Acute MRSA (methicillin resistant Staphylococcus aureus) Acute 05/06/15
[2017-08-09] MEDS ORDERED: ALTEPLASE 2 MG VIAL IVP PRN (13:55)
--- NOTE | 2017-08-09 14:13 | HOSPPROG ---
Hospitalist Progress Note Assessment/Plan: DIAGNOSES: # acute encephalopathy, multifactorial, with likely ongoing encephalopathy or dementing process * B12 deficiency may be a significant factor * Other nutritional factors may be important * Narcotics, marijuana may also be significant factors * TSH tested normal last week and RPR was also negative # aortic ulcer, penetrating with contained mediastinal hematoma * status post endovascular repair with endograft placement * CT chest has not yet been read by radiology but I do not see a leak on my review of images # MRSA bacteremia * Source unknown * Currently receiving vancomycin * Repeat blood cultures from yesterday are now growing gram-positive cocci in all 4 bottles; may be difficult to clear this infection and will require ongoing IV antibiotics at this time # anasarca, new finding at this time related to IV resuscitation and malnutrition among other issues * Will begin to treat this # recently identified vitamin B12 deficiency * He had received few doses of parenteral vitamin B12 last week but B12 replacements have not been resumed here so far # acute blood loss anemia now stable after multiple transfusions * 4 units of packed red blood cells transfused perioperatively * Some drop in hemoglobin ongoing will recheck for stability # failure to thrive # severe protein calorie malnutrition, albumin 1.2 * Appetite finally beginning to improve and hopefully will be able to get his calorie and protein intake up quickly # marked deconditioning and gait instability * Deconditioning from inactivity, B12 deficiency, alcohol and marijuana, malnutrition, chronic pain, and multiple other factors involved # 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 He in the past says he has had benefit from chiropractic, physical therapy, and tens unit; none of those available here but once he leaves here hopefully he can re-engage in those therapies; will be best to minimize narcotic use given all of his other multiple issues # chronic respiratory failure with chronic hypoxemia on chronic oxygen # chronic COPD stable at this time # chronic obstructive sleep apnea, intolerant of CPAP so has never used # hypothyroidism * TSH was in normal range last week # history of alcohol abuse and daily marijuana use # diabetes mellitus type 2 # CAD PLANS: * Discontinue IV fluids, resume his usual Lasix, follow his fluid status closely as well as blood pressures and pulse * continue postoperative care; for his chronic back pain will add Lidoderm and Flexeril at this time * I reviewed in detail with Dr. Robert Gupta; * Continue vitamin B12 treatments here at this time and he will need to continue for lifetime * Fall risk precautions * Will review with CV surgery, question if they are comfortable with beginning any anticoagulation at this point for DVT prophylaxis * Follow blood counts closely for any worsening anemia * He will again need halfway facility care at the time of discharge here due to mentation issues as well as fall risk; I question whether he will ever be able to safely live alone in home again, however will see how things progress as we replace is nutrition and get his infection treated, hopefully can keep him away from alcohol and minimize narcotic use * Nutritional supplements and follow nutritional measures closely I reviewed in detail with Robert Gupta of ID SUBJECTIVE: Finally starting to feel slightly more energetic and slightly better appetite. Still extremely weak and not really able to walk. No new symptoms, no dyspnea or fever symptoms OBJECTIVE Vitals reviewed: Today again mildly tachycardic and with blood pressures a bit higher, no fever Silk Opener, my review: Sinus Exam: alert better oriented today, looks slightly more energetic, speaks more clearly and with less delay skin warm dry color ok resps not labored lungs clear BSs heart regular abd soft nondistended nontender, bowel sounds present limbs significant edema now developing in all 4 arms and legs as well as abdominal wall iv site ok Laboratory data: Potassium remains low and requiring replacement, Phos remains normal today CT scan of chest , with angiogram 08/08: Radiologist report also notes no evidence of bleeding Objective: Vital Signs Temp Pulse Resp BP Pulse Ox 36.7 C 122 H 18 149/82 H 93 08/09/17 11:45 08/09/17 11:45 08/09/17 11:45 08/09/17 11:45 08/09/17 11:45 Laboratory Results 08/07/17 05:40 08/09/17 05:40 08/08/17 08/09/17 08/10/17 06:59 06:59 06:59 Intake Total 2150 3800 1815 Output Total 2300 2000 Balance -150 1800 1815 PT 17.0 SEC (12.0-15.0) H 06/04/18 18:30 INR 1.37 (0.83-1.16) H 08/05/17 18:30 - Time Spent With Patient Time Spent with Patient: greater than 35 minutes Time Spent with Patient: Greater than 35 minutes spent on this patients care, greater than 50% of time spent counseling, educating, and coordinating care regarding the above mentioned plan. ICD10 Worksheet Patient Problems: Problems Problem Status Onset Altered mental status Acute Penetrating ulcer of aorta Acute Acute appendicitis Acute C. difficile enteritis Acute 11/03/13 Chest pain Acute Chronic Disease Mgmt/Transitional Care Acute Chronic obstructive pulmonary disease with acute exacerbation Acute Coronary artery disease Acute Cough Acute Elevated troponin Acute Exacerbation of asthma Acute MRSA (methicillin resistant Staphylococcus aureus) Acute 05/06/15
[2017-08-09] MEDS: FUROSEMIDE 20 MG TAB PO SCH (15:20)
[2017-08-09] MEDS: CEPACOL LOZENGE PO PRN (15:29)
[2017-08-09] MEDS: VANCOMYCIN 1.5 GM in NS 250 ML IV SCH (17:07)
[2017-08-09] MEDS: PATCH REMOVAL 1 EA PATCH TD SCH (21:58)
[2017-08-10] MEDS: HYDROCODONE/APAP 10/325 TAB PO PRN ×4 (01:45→22:28)
[2017-08-10] MEDS: VANCOMYCIN 1.5 GM in NS 250 ML IV SCH (05:16)
[2017-08-10] MEDS: CLOTRIMAZOLE 10 MG TROCHE PO SCH ×5 (05:55→22:28)
[2017-08-10] MEDS ORDERED: POTASSIUM CL 10 MEQ TAB PO ONE ×2 (08:57→19:53)
[2017-08-10] MEDS ORDERED: CALCIUM GLUCONATE 50 ML IV ONE (08:58)
[2017-08-10] MEDS: PANTOPRAZOLE SODIUM 40 MG TAB PO SCH ×2 (09:25→22:30)
[2017-08-10] MEDS: FUROSEMIDE 20 MG TAB PO SCH (09:26)
[2017-08-10] MEDS: LIDOCAINE 4%/MENTHOL 1% PATCH TD SCH (09:26)
[2017-08-10] MEDS: CYANO/VITAMIN B12 1000 MCG TAB PO SCH (09:26)
[2017-08-10] MEDS: CYCLOBENZAPRINE 10 MG TAB PO SCH ×3 (09:26→22:29)
[2017-08-10] MEDS: LEVOTHYROXINE 112 MCG TAB PO SCH (09:27)
[2017-08-10] MEDS: TIOTROPIUM INHALER 18 MCG/DOSE 5 DOSE/MDI IH SCH (09:47)
[2017-08-10] MEDS: BECLOMETHASONE QVAR 80 REDIHALER 120 INH/10.6 GM MDI IH SCH ×2 (09:47→21:33)
--- NOTE | 2017-08-10 10:27 | PCMIDPN ---
Assessment/Plan: Assessment: MRSA bacteremia. Initial blood cultures on 08/05/2017 growing MRSA. This culture was drawn just prior to endograft placement over thoracic aorta area thought to be ulcerative and slowly hemorrhaging. Repeat blood cultures drawn on 08/08/2017 are now also growing Gram-positive cocci in cultures. Initial blood culture on 08/05 was drawn prior to PICC placement. Will replace the PICC line in interventional today. Will redraw up blood cultures after PICC line placed. I am very concerned that the initial aortic ulceration reflects a mycotic etiology and that the MRSA infection will be prove difficult to clear without resection. We will continue the vancomycin dose at 1.5 g IV q.12 hours. If his blood cultures remain positive will discuss with cardiothoracic surgery about next steps which may include aggressive aortic surgery. Plan: 1. Continue IV vancomycin at 1.5 g IV q.12 hours. 2. Replace PICC line. 3. Repeat blood cultures on 08/10/2017. Subjective: Patient is sitting up in a chair in his hospital room. He states he still has pain and discomfort all over. He states this might be a bit improved from yesterday. He denies any fevers or chills. Objective: Vancomycin 1.5 g IV q.12 hours # 4 Vital Signs Temp Pulse Resp BP Pulse Ox 36.8 C 119 H 19 155/57 H 95 08/10/17 08:30 08/10/17 09:48 08/10/17 09:48 08/10/17 08:30 08/10/17 09:48 Laboratory Results 08/07/17 05:40 08/10/17 04:30 08/09/17 08/10/17 08/11/17 05:59 05:59 05:59 Intake Total 3800 3613 Output Total 2400 450 Balance 1400 3163 - Physical Exam General Appearance: WD/WN, alert, no apparent distress, non-toxic Respiratory: lungs clear, normal breath sounds, No respiratory distress Cardiac/Chest: regular rate, rhythm, No tachycardia, No diastolic murmur, No systolic murmur Extremities: non-tender, normal inspection Skin: normal color, warm/dry, other (Scattered ecchymoses), No rash Neuro/Psych: alert, normal mood/affect, oriented x 3 ICD10 Worksheet Patient Problems: Problems Problem Status Onset Altered mental status Acute Penetrating ulcer of aorta Acute Acute appendicitis Acute C. difficile enteritis Acute 11/03/13 Chest pain Acute Chronic Disease Mgmt/Transitional Care Acute Chronic obstructive pulmonary disease with acute exacerbation Acute Coronary artery disease Acute Cough Acute Elevated troponin Acute Exacerbation of asthma Acute MRSA (methicillin resistant Staphylococcus aureus) Acute 05/06/15
[2017-08-10] MEDS: NEBIVOLOL HCL 5 MG TAB PO SCH (17:12)
[2017-08-10] MEDS: VANCOMYCIN 1.5 GM in D5W 250 ML IV SCH (17:12)
--- NOTE | 2017-08-10 18:09 | HOSPPROG ---
Hospitalist Progress Note Assessment/Plan: DIAGNOSES: # acute encephalopathy, multifactorial, with likely ongoing encephalopathy or dementing process * B12 deficiency may be a significant factor * Other nutritional factors may be important * Narcotics, marijuana may also be significant factors * TSH tested normal last week and RPR was also negative # aortic ulcer, penetrating with contained mediastinal hematoma * status post endovascular repair with endograft placement * CT chest has not yet been read by radiology but I do not see a leak on my review of images # MRSA bacteremia * Source unknown * Currently receiving vancomycin * Repeat blood cultures from yesterday are now growing gram-positive cocci in all 4 bottles; may be difficult to clear this infection and will require ongoing IV antibiotics at this time # anasarca, new finding at this time related to IV resuscitation and malnutrition among other issues * Will begin to treat this # recently identified vitamin B12 deficiency * He had received few doses of parenteral vitamin B12 last week but B12 replacements have not been resumed here so far # acute blood loss anemia now stable after multiple transfusions * 4 units of packed red blood cells transfused perioperatively * Some drop in hemoglobin ongoing will recheck for stability # failure to thrive # severe protein calorie malnutrition, albumin 1.2 * Appetite finally beginning to improve and hopefully will be able to get his calorie and protein intake up quickly # marked deconditioning and gait instability * Deconditioning from inactivity, B12 deficiency, alcohol and marijuana, malnutrition, chronic pain, and multiple other factors involved # 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 He in the past says he has had benefit from chiropractic, physical therapy, and tens unit; none of those available here but once he leaves here hopefully he can re-engage in those therapies; will be best to minimize narcotic use given all of his other multiple issues # chronic respiratory failure with chronic hypoxemia on chronic oxygen # chronic COPD stable at this time # chronic obstructive sleep apnea, intolerant of CPAP so has never used # hypothyroidism * TSH was in normal range last week # history of alcohol abuse and daily marijuana use # diabetes mellitus type 2 # CAD PLANS: * Continue current antibiotic therapy and follow closely for clearance of blood cultures which will need to redraw probably tomorrow; I reviewed with Dr. Gupta. The patient has situation potentially consistent with a mycotic ulcer of the aorta, and wonder if he will be able to clear this with antibiotic alone or may need resection * Continue Lasix, follow his fluid status closely as well as blood pressures and pulse * continue postoperative care; * for his chronic back pain will add Lidoderm and Flexeril at this time * Continue vitamin B12 treatments here at this time and he will need to continue for lifetime * Fall risk precautions * No notes from CV surgery, will need to contact to find out if they are comfortable with beginning any anticoagulation at this point for DVT prophylaxis * Follow blood counts closely for any worsening anemia * He may need usp facility care at the time of discharge here due to mentation issues as well as fall risk; * Nutritional supplements and follow nutritional measures closely SUBJECTIVE: Finally starting to feel slightly more energetic and slightly better appetite. Still extremely weak and not really able to walk. No new symptoms, no dyspnea or fever symptoms OBJECTIVE Vitals reviewed: Today again mildly tachycardic and with blood pressures a bit high, no fever Inventory Control Specialist, my review: Sinus Exam: alert better oriented today, looks slightly more energetic, speaks more clearly and with less delay skin warm dry color ok resps not labored lungs clear BSs heart regular abd soft nondistended nontender, bowel sounds present limbs significant edema now developing in all 4 arms and legs as well as abdominal wall iv site ok Laboratory data: Potassium better today otherwise stable Chem panel CT scan of chest , with angiogram 08/08: Radiologist report also notes no evidence of bleeding Objective: Vital Signs Temp Pulse Resp BP Pulse Ox 36.7 C 109 H 15 140/93 H 96 08/10/17 16:00 08/10/17 16:00 08/10/17 16:00 08/10/17 16:00 08/10/17 16:00 Laboratory Results 08/07/17 05:40 08/10/17 04:30 08/09/17 08/10/17 08/11/17 06:59 06:59 06:59 Intake Total 3800 3613 Output Total 2000 450 Balance 1800 3163 PT 17.0 SEC (12.0-15.0) H 08/05/17 18:30 INR 1.37 (0.83-1.16) H 08/05/17 18:30 ICD10 Worksheet Patient Problems: Problems Problem Status Onset Altered mental status Acute Penetrating ulcer of aorta Acute Acute appendicitis Acute C. difficile enteritis Acute 11/03/13 Chest pain Acute Chronic Disease Mgmt/Transitional Care Acute Chronic obstructive pulmonary disease with acute exacerbation Acute Coronary artery disease Acute Cough Acute Elevated troponin Acute Exacerbation of asthma Acute MRSA (methicillin resistant Staphylococcus aureus) Acute 05/06/15
[2017-08-10] MEDS: PATCH REMOVAL 1 EA PATCH TD SCH (22:28)
[2017-08-11] MEDS: HYDROCODONE/APAP 10/325 TAB PO PRN ×4 (04:40→18:13)
[2017-08-11] MEDS: CLOTRIMAZOLE 10 MG TROCHE PO SCH ×5 (04:41→20:53)
[2017-08-11 04:48] LABS: PLATELET COUNT 238 10^3/uL (150-400)
[2017-08-11] MEDS: VANCOMYCIN 1.5 GM in D5W 250 ML IV SCH ×2 (05:04→17:34)
[2017-08-11] MEDS: BECLOMETHASONE QVAR 80 REDIHALER 120 INH/10.6 GM MDI IH SCH ×2 (08:53→21:11)
[2017-08-11] MEDS: TIOTROPIUM INHALER 18 MCG/DOSE 5 DOSE/MDI IH SCH (08:53)
[2017-08-11] MEDS ORDERED: CALCIUM GLUCONATE 50 ML IV ONE (09:31)
[2017-08-11] MEDS ORDERED: POTASSIUM CL 10 MEQ TAB PO ONE ×2 (09:31→19:17)
[2017-08-11] MEDS: CYCLOBENZAPRINE 10 MG TAB PO SCH ×3 (09:32→20:53)
[2017-08-11] MEDS: PANTOPRAZOLE SODIUM 40 MG TAB PO SCH ×2 (09:32→20:54)
[2017-08-11] MEDS: FUROSEMIDE 20 MG TAB PO SCH (09:32)
[2017-08-11] MEDS: NEBIVOLOL HCL 5 MG TAB PO SCH ×2 (09:32→17:34)
[2017-08-11] MEDS: LEVOTHYROXINE 112 MCG TAB PO SCH (09:32)
[2017-08-11] MEDS: CYANO/VITAMIN B12 1000 MCG TAB PO SCH (09:32)
[2017-08-11] MEDS: LIDOCAINE 4%/MENTHOL 1% PATCH TD SCH (09:33)
--- NOTE | 2017-08-11 11:49 | PCMIDPN ---
Assessment/Plan: Assessment: MRSA bacteremia. Initial blood cultures on 08/05/2017 growing MRSA. This culture was drawn just prior to endograft placement over thoracic aorta area thought to be ulcerative and slowly hemorrhaging. Repeat blood cultures drawn on 08/08/2017 are now also growing Gram-positive cocci in cultures. Initial blood culture on 08/05 was drawn prior to PICC placement. Will replace the PICC line in interventional today. Will redraw up blood cultures after PICC line placed. I am very concerned that the initial aortic ulceration reflects a mycotic etiology and that the MRSA infection will be prove difficult to clear without resection. We will continue the vancomycin dose at 1.5 g IV q.12 hours. If his blood cultures remain positive will discuss with cardiothoracic surgery about next steps which may include aggressive aortic surgery. Plan: 1. Continue IV vancomycin at 1.5 g IV q.12 hours. 2. Replace PICC line. 3. Repeat blood cultures on 08/10/2017. 4. Recheck vanc trough prior to p.m. Dose. 08/11/17 11:48 Subjective: Patient is sitting up in his chair in his hospital room. He is accompanied by a long-time friend. He states he continues to feel pain all over. No fevers or chills. Objective: Vancomycin # 5 Vital Signs Temp Pulse Resp BP Pulse Ox 36.6 C 100 16 112/48 L 99 08/11/17 07:23 08/11/17 09:04 08/11/17 09:04 08/11/17 07:23 08/11/17 09:04 Laboratory Results 08/11/17 04:28 08/11/17 04:28 08/10/17 08/11/17 08/12/17 05:59 05:59 05:59 Intake Total 3613 1620 Output Total 450 100 Balance 3163 1620 -100 - Physical Exam General Appearance: WD/WN, alert, no apparent distress, non-toxic Respiratory: lungs clear, normal breath sounds, No respiratory distress Cardiac/Chest: regular rate, rhythm, No tachycardia Extremities: non-tender, normal inspection Skin: normal color, warm/dry, other (Scattered skin lesions), No rash Neuro/Psych: alert, normal mood/affect, oriented x 3 ICD10 Worksheet Patient Problems: Problems Problem Status Onset Altered mental status Acute Penetrating ulcer of aorta Acute Acute appendicitis Acute C. difficile enteritis Acute 11/03/13 Chest pain Acute Chronic Disease Mgmt/Transitional Care Acute Chronic obstructive pulmonary disease with acute exacerbation Acute Coronary artery disease Acute Cough Acute Elevated troponin Acute Exacerbation of asthma Acute MRSA (methicillin resistant Staphylococcus aureus) Acute 05/06/15
--- NOTE | 2017-08-11 14:53 | HOSPPROG ---
Hospitalist Progress Note Assessment/Plan: DIAGNOSES: # acute encephalopathy, multifactorial, with likely ongoing encephalopathy or dementing process; gradually improving nicely over the last 2 weeks of therapy here * B12 deficiency likely be a significant factor, as well as his infectious illness * Other nutritional factors may be important * Narcotics, marijuana may also be significant factors * TSH tested normal last week and RPR was also negative # aortic ulcer, penetrating with contained mediastinal hematoma * status post endovascular repair with endograft placement by Dr. Arthur Li on 08/05 * Decrease in hemoglobin today raises some concern of whether he could have further bleed though CT scan done 3 days ago showed no ongoing bleeding; the hemoglobin level could be fluctuation for other reasons, no signs of bleeding elsewhere # MRSA bacteremia * Source unknown, question of whether he has of mycotic ulcer of the aorta, or other etiology * Currently receiving vancomycin * Repeat blood cultures from 08/08 are still with MRSA in all bottles; * PICC line has now been replaced, would repeat blood cultures tomorrow 08/12 # recently identified vitamin B12 deficiency * He had received few doses of parenteral vitamin B12 last week but B12 replacements have not been resumed here so far # acute blood loss anemia now stable after multiple transfusions * 4 units of packed red blood cells transfused perioperatively * Some drop in hemoglobin today, uncertain if this is true acute or some fluctuation in lab value # failure to thrive/severe deconditioning and weakness/gait instability and high fall risk * infection, B12 deficiency, alcohol and marijuana, severe malnutrition, chronic pain, and multiple other factors involved # severe protein calorie malnutrition, albumin 1.2 * Appetite finally beginning to improve and hopefully will be able to get his calorie and protein intake up quickly # 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 He in the past says he has had benefited from chiropractic, physical therapy, and tens unit; none of those available here but once he leaves here hopefully he can re-engage in those therapies; will be best to minimize narcotic use given all of his other multiple issues # chronic respiratory failure with chronic hypoxemia on chronic oxygen # chronic COPD stable at this time # chronic obstructive sleep apnea, intolerant of CPAP so has never used # hypothyroidism * TSH was in normal range last week # history of alcohol abuse and daily marijuana use # diabetes mellitus type 2 # CAD PLANS: * Have ordered repeat hemoglobin this afternoon and will recheck in the morning ; if truly decreasing will need to have CV surgery review, consider repeat CT scan * Continue current antibiotic therapy and follow closely for clearance of blood cultures which will need to redraw probably tomorrow; The patient has situation potentially consistent with a mycotic ulcer of the aorta, and wonder if he will be able to clear this with antibiotic alone or may need resection * Continue Lasix, follow his fluid status closely as well as blood pressures and pulse * for his chronic back pain continue additional Lidoderm and Flexeril at this time * Continue vitamin B12 treatments here at this time and he will need to continue for lifetime * Fall risk precautions/PT/OT\ * He may need nursing home facility care at the time of discharge here due to mentation issues as well as fall risk; * Nutritional supplements and follow nutritional measures closely SUBJECTIVE: Feels about the same as yesterday. Still very weak but is able to stand took a couple of steps but not really walking very well at all. His usual pains persist but no new pains or changes overall Appetite slightly better No chills sweats or shortness of breath OBJECTIVE Vitals reviewed: Mild tachycardia persists unchanged, blood pressures in okay range, no fever Button Cutter, my review: Sinus Exam: Again today is a bit more alert and talkative, well oriented now, still with severe generalized weakness but stronger than where restarted for sure skin warm dry color ok resps not labored lungs clear BSs heart regular abd soft nondistended nontender, bowel sounds present limbs: edema is notably decreased now with his Lasix resumed, still some edema of arms iv site ok Laboratory data: Significantly today his hemoglobin is down at 8.4 from 10.7 a few days ago. Suzanne see better Still a bit low on ionized calcium CT scan of chest , with angiogram 08/08: Radiologist report also notes no evidence of further mediastinal bleeding Objective: Vital Signs Temp Pulse Resp BP Pulse Ox 36.6 C 104 H 16 108/65 94 08/11/17 12:25 08/11/17 12:25 08/11/17 12:25 08/11/17 12:25 08/11/17 12:25 Laboratory Results 08/11/17 04:28 08/11/17 04:28 08/10/17 08/11/17 08/12/17 06:59 06:59 06:59 Intake Total 3613 1620 Output Total 450 100 Balance 3163 1520 PT 17.0 SEC (12.0-15.0) H 08/05/17 18:30 INR 1.37 (0.83-1.16) H 08/05/17 18:30 - Time Spent With Patient Time Spent with Patient: greater than 35 minutes Time Spent with Patient: Greater than 35 minutes spent on this patients care, greater than 50% of time spent counseling, educating, and coordinating care regarding the above mentioned plan. ICD10 Worksheet Patient Problems: Problems Problem Status Onset Altered mental status Acute Penetrating ulcer of aorta Acute Acute appendicitis Acute C. difficile enteritis Acute 11/03/13 Chest pain Acute Chronic Disease Mgmt/Transitional Care Acute Chronic obstructive pulmonary disease with acute exacerbation Acute Coronary artery disease Acute Cough Acute Elevated troponin Acute Exacerbation of asthma Acute MRSA (methicillin resistant Staphylococcus aureus) Acute 05/06/15
--- NOTE | 2017-08-11 18:04 | HOSPPROG ---
Hospitalist Progress Note Assessment/Plan: DIAGNOSES: # acute encephalopathy, multifactorial, with likely ongoing encephalopathy or dementing process; gradually improving nicely over the last 2 weeks of therapy here * B12 deficiency likely be a significant factor, as well as his infectious illness * Other nutritional factors may be important * Narcotics, marijuana may also be significant factors * TSH tested normal last week and RPR was also negative # aortic ulcer, penetrating with contained mediastinal hematoma * status post endovascular repair with endograft placement by Dr. Arthur Li on 08/05 * Decrease in hemoglobin today raises some concern of whether he could have further bleed though CT scan done 3 days ago showed no ongoing bleeding; the hemoglobin level could be fluctuation for other reasons, no signs of bleeding elsewhere # MRSA bacteremia * Source unknown, question of whether he has of mycotic ulcer of the aorta, or other etiology * Currently receiving vancomycin * Repeat blood cultures from 08/08 are still with MRSA in all bottles; * PICC line has now been replaced, would repeat blood cultures tomorrow 08/12 # recently identified vitamin B12 deficiency * He had received few doses of parenteral vitamin B12 last week but B12 replacements have not been resumed here so far # acute blood loss anemia now stable after multiple transfusions * 4 units of packed red blood cells transfused perioperatively * Some drop in hemoglobin today, uncertain if this is true acute or some fluctuation in lab value # acute upper GI bleed, with multiple esophageal and gastric ulcers identified endoscopically, some with visible vessels which were clipped in both the esophagus and the stomach * Remains on PPI * So far no evidence of recurrent GI bleed clinically # failure to thrive/severe deconditioning and weakness/gait instability and high fall risk * infection, B12 deficiency, alcohol and marijuana, severe malnutrition, chronic pain, and multiple other factors involved # severe protein calorie malnutrition, albumin 1.2 * Appetite finally beginning to improve and hopefully will be able to get his calorie and protein intake up quickly # 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 He in the past says he has had benefited from chiropractic, physical therapy, and tens unit; none of those available here but once he leaves here hopefully he can re-engage in those therapies; will be best to minimize narcotic use given all of his other multiple issues # chronic respiratory failure with chronic hypoxemia on chronic oxygen # chronic COPD stable at this time # chronic obstructive sleep apnea, intolerant of CPAP so has never used # hypothyroidism * TSH was in normal range last week # history of alcohol abuse and daily marijuana use # diabetes mellitus type 2 # CAD PLANS: * Have ordered repeat hemoglobin this afternoon and will recheck in the morning ; if truly decreasing will need to have CV surgery review, consider repeat CT scan; I have reviewed the decrease in hemoglobin with Oswald Bañuelos of Cardiovascular surgery today by telephone * Continue current antibiotic therapy and follow closely for clearance of blood cultures which will need to redraw probably tomorrow; The patient has situation potentially consistent with a mycotic ulcer of the aorta, and wonder if he will be able to clear this with antibiotic alone or may need resection * Continue Lasix, follow his fluid status closely as well as blood pressures and pulse * Continue proton pump inhibitor and follow for any signs of recurrent GI bleed , avoid NSAIDs * Patient is not on any anticoagulants due to his GI bleeding and bleeding aortic ulcer, mechanical prophylaxis only * for his chronic back pain continue additional Lidoderm and Flexeril at this time * Continue vitamin B12 treatments here at this time and he will need to continue for lifetime * Fall risk precautions/PT/OT\ * He may need senior living facility care at the time of discharge here due to mentation issues as well as fall risk; * Nutritional supplements and follow nutritional measures closely SUBJECTIVE: Feels about the same as yesterday. Still very weak but is able to stand took a couple of steps but not really walking very well at all. His usual pains persist but no new pains or changes overall Appetite slightly better No chills sweats or shortness of breath OBJECTIVE Vitals reviewed: Mild tachycardia persists unchanged, blood pressures in okay range, no fever Hold Worker, my review: Sinus Exam: Again today is a bit more alert and talkative, well oriented now, still with severe generalized weakness but stronger than where restarted for sure skin warm dry color ok resps not labored lungs clear BSs heart regular abd soft nondistended nontender, bowel sounds present limbs: edema is notably decreased now with his Lasix resumed, still some edema of arms iv site ok Laboratory data: Significantly today his hemoglobin is down at 8.4 from 10.7 a few days ago. Suzanne see better Still a bit low on ionized calcium CT scan of chest , with angiogram 08/08: Radiologist report also notes no evidence of further mediastinal bleeding Objective: Vital Signs Temp Pulse Resp BP Pulse Ox 36.3 C 106 H 16 128/75 H 96 08/11/17 16:49 08/11/17 16:49 08/11/17 16:49 08/11/17 16:49 08/11/17 16:49 Laboratory Results 08/11/17 15:50 08/11/17 17:35 08/10/17 08/11/17 08/12/17 06:59 06:59 06:59 Intake Total 3613 1620 960 Output Total 450 100 650 Balance 3163 1520 310 PT 17.0 SEC (12.0-15.0) H 08/05/17 18:30 INR 1.37 (0.83-1.16) H 08/05/17 18:30 - Time Spent With Patient Time Spent with Patient: greater than 35 minutes Time Spent with Patient: Greater than 35 minutes spent on this patients care, greater than 50% of time spent counseling, educating, and coordinating care regarding the above mentioned plan. ICD10 Worksheet Patient Problems: Problems Problem Status Onset Altered mental status Acute Penetrating ulcer of aorta Acute Acute appendicitis Acute C. difficile enteritis Acute 11/03/13 Chest pain Acute Chronic Disease [facility]/Transitional Care Acute Chronic obstructive pulmonary disease with acute exacerbation Acute Coronary artery disease Acute Cough Acute Elevated troponin Acute Exacerbation of asthma Acute MRSA (methicillin resistant Staphylococcus aureus) Acute 05/06/15
[2017-08-11] MEDS: ACETAMINOPHEN 325 MG TAB PO PRN (20:51)
[2017-08-11] MEDS: PATCH REMOVAL 1 EA PATCH TD SCH (20:58)
[2017-08-12] MEDS: CLOTRIMAZOLE 10 MG TROCHE PO SCH ×5 (04:30→21:35)
[2017-08-12] MEDS: VANCOMYCIN 1.5 GM in D5W 250 ML IV SCH ×2 (04:30→17:15)
[2017-08-12] MEDS: HYDROCODONE/APAP 10/325 TAB PO PRN ×5 (04:37→22:32)
[2017-08-12] MEDS ORDERED: POTASSIUM CL 10 MEQ TAB PO ONE (07:35)
[2017-08-12] MEDS ORDERED: CALCIUM GLUCONATE 50 ML IV ONE (07:58)
[2017-08-12] MEDS: LIDOCAINE 4%/MENTHOL 1% PATCH TD SCH (08:17)
[2017-08-12] MEDS: NEBIVOLOL HCL 5 MG TAB PO SCH ×2 (08:18→17:14)
[2017-08-12] MEDS: CYANO/VITAMIN B12 1000 MCG TAB PO SCH (08:18)
[2017-08-12] MEDS: LEVOTHYROXINE 112 MCG TAB PO SCH (08:18)
[2017-08-12] MEDS: PANTOPRAZOLE SODIUM 40 MG TAB PO SCH ×2 (08:18→21:36)
[2017-08-12] MEDS: POTASSIUM CL 20 MEQ/15 ML UDCUP PO ONE ×2 (08:18→08:30)
[2017-08-12] MEDS: FUROSEMIDE 20 MG TAB PO SCH (08:18)
[2017-08-12] MEDS: CYCLOBENZAPRINE 10 MG TAB PO SCH (08:18)
[2017-08-12] MEDS ORDERED: POTASSIUM CL 20 MEQ/15 ML UDCUP PO ONE (08:30)
[2017-08-12] MEDS: BECLOMETHASONE QVAR 80 REDIHALER 120 INH/10.6 GM MDI IH SCH ×2 (10:23→21:52)
[2017-08-12] MEDS: TIOTROPIUM INHALER 18 MCG/DOSE 5 DOSE/MDI IH SCH (10:23)
--- NOTE | 2017-08-12 12:30 | ASMTCMCOM ---
CM Note CM Note Notes: 08/12/2017 Case Management Note Pt continues on IV antibiotics, had PICC replaced over the weekend. Faxed updates to [facility]. Case Management d/c poc: return to [facility] Case Management to follow. Date Signed: 08/12/2017 12:29 PM Electronically Signed By:Denise Mera RN
--- NOTE | 2017-08-12 14:19 | HOSPPROG ---
Hospitalist Progress Note Assessment/Plan: 71 yo M w aortic ulcer s/p endovascular stent and MRSA bacteremia bacteremia: source unclear, possibly ulcer concern that endograft is infected await repeat cx continue vancomycin encephalopathy: improved ABLA: hct stable follow daily received 4 units during hospitalization pain: norco 10/325 take full pill at home; changed to that todat sortic ulcer: s/p endovascular repair follow up CTA OK proph: scd'd for now dispo: inpt Subjective: case d/w dr keith Objective: Vital Signs Temp Pulse Resp BP Pulse Ox 36.6 C 88 17 113/56 L 94 08/12/17 11:12 08/12/17 11:12 08/12/17 11:12 08/12/17 11:12 08/12/17 11:12 Laboratory Results 08/12/17 05:00 08/12/17 05:00 08/11/17 08/12/17 08/13/17 05:59 05:59 05:59 Intake Total 1620 1950 300 Output Total 1225 125 Balance 1620 725 175 PT 17.0 SEC (12.0-15.0) H 08/05/17 18:30 INR 1.37 (0.83-1.16) H 08/05/17 18:30 - Physical Exam Constitutional: no apparent distress, chronically ill appearing Eyes: PERRL, anicteric sclera Ears, Nose, Mouth, Throat: moist mucous membranes, hearing normal Cardiovascular: regular rate and rhythym, no murmur, rub, or gallop Respiratory: no respiratory distress, no rales or rhonchi Gastrointestinal: normoactive bowel sounds, soft, non-tender abdomen Genitourinary: No augustine in urethra Skin: warm, normal color Musculoskeletal: full muscle strength, no muscle tenderness Neurologic: AAOx3 Psychiatric: interacting appropriately Lymph, Heme, Immunologic: no cervical LAD ICD10 Worksheet Patient Problems: Problems Problem Status Onset Altered mental status Acute Penetrating ulcer of aorta Acute Acute appendicitis Acute C. difficile enteritis Acute 11/03/13 Chest pain Acute Chronic Disease Mgmt/Transitional Care Acute Chronic obstructive pulmonary disease with acute exacerbation Acute Coronary artery disease Acute Cough Acute Elevated troponin Acute Exacerbation of asthma Acute MRSA (methicillin resistant Staphylococcus aureus) Acute 05/06/15
--- NOTE | 2017-08-12 15:45 | PCMIDPN ---
Assessment/Plan: Assessment: MRSA bacteremia. Initial blood cultures on 08/05/2017 growing MRSA. This culture was drawn just prior to endograft placement over thoracic aorta area thought to be ulcerative and slowly hemorrhaging. Repeat blood cultures drawn on 08/08/2017 are now also growing Gram-positive cocci in cultures. Initial blood culture on 08/05 was drawn prior to PICC placement. Repeat cultures will be drawn today. I am concerned that the initial aortic ulceration reflects a mycotic etiology and that the MRSA infection will be prove difficult to clear without resection. We will continue the vancomycin dose at 1.5 g IV q.12 hours. Plan: 1. Continue IV vancomycin at 1.5 g IV q.12 hours. 2. Repeat blood cultures on 08/10/2017. Subjective: Patient is resting in his hospital room. No new complaints. Still hurts all over but it is better. No fevers or chills. No localizing discomfort. Patient had PICC line replaced yesterday. It is in the right arm. Objective: Vancomycin #6 Vital Signs Temp Pulse Resp BP Pulse Ox 36.7 C 95 14 104/52 L 96 08/12/17 15:42 08/12/17 15:42 08/12/17 15:42 08/12/17 15:42 08/12/17 15:42 Laboratory Results 08/12/17 05:00 08/12/17 05:00 08/11/17 08/12/17 08/13/17 05:59 05:59 05:59 Intake Total 1620 1950 300 Output Total 1225 125 Balance 1620 725 175 - Physical Exam General Appearance: WD/WN, alert, no apparent distress, non-toxic Respiratory: lungs clear, normal breath sounds, No respiratory distress Cardiac/Chest: regular rate, rhythm, No tachycardia Skin: normal color, warm/dry, No rash Neuro/Psych: alert, normal mood/affect, oriented x 3 ICD10 Worksheet Patient Problems: Problems Problem Status Onset Altered mental status Acute Penetrating ulcer of aorta Acute Acute appendicitis Acute C. difficile enteritis Acute 11/03/13 Chest pain Acute Chronic Disease Mgmt/Transitional Care Acute Chronic obstructive pulmonary disease with acute exacerbation Acute Coronary artery disease Acute Cough Acute Elevated troponin Acute Exacerbation of asthma Acute MRSA (methicillin resistant Staphylococcus aureus) Acute 05/06/15
[2017-08-12] MEDS: PATCH REMOVAL 1 EA PATCH TD SCH (21:37)
--- NOTE | 2017-08-13 21:09 | PCMIDPN ---
Assessment/Plan: # MRSA bacteremia associated with aortic aneurysm, query mycotic. Patient on vancomycin 1.25 g IV Q 12 with levels greater than 15. Blood cultures remain positive from 08/12/2017. Concern with ongoing lumbar back pain. Also could consider due to superinfection of graft placed during period of bacteremia, but would rule out other causes for. --Continue IV vancomycin, recheck trough. --Obtain MRI of the lumbar spine with and without contrast --Repeat blood cultures again 08/14/2017 Medications Vancomycin 1.5 g IV Q 12 Cotriamazole Subjective: C/o low back pain, concerned with persistently positive blood cultures Labs: WBC 9.8, creatinine 0.7 Exam Gen: disheveled somewhat irritable male, no acute distress HEENT: Poor dentition Cardiovascular RRR, no murmur Chest: Poor inspiratory effort, scattered wheezes Abdomen: Soft nontender, bowel sounds present : No Monge Skin: No rashes Extremities: Minimal edema with hyperpigmentation a stocking distribution consistent with past venous insufficiency PICC line right upper extremity C/ D/I Greater than 35 min was spent with education counseling regarding course of events in that bacteremia preceded graft placement, coordination of care with Dr. Charleen Guidry. Course of events and planned treatment and workup discussed with patient and his 2 friends at bedside. Objective: Vital Signs Temp Pulse Resp BP Pulse Ox 36.7 C 90 16 116/70 97 08/12/17 23:01 08/12/17 23:01 08/12/17 23:01 08/12/17 23:01 08/12/17 23:01 Laboratory Results 08/12/17 05:00 08/12/17 05:00 08/12/17 08/13/17 08/14/17 05:59 05:59 05:59 Intake Total 1950 1140 Output Total 1225 850 Balance 725 290 ICD10 Worksheet Patient Problems: Problems Problem Status Onset Altered mental status Acute Penetrating ulcer of aorta Acute Acute appendicitis Acute C. difficile enteritis Acute 11/03/13 Chest pain Acute Chronic Disease Mgmt/Transitional Care Acute Chronic obstructive pulmonary disease with acute exacerbation Acute Coronary artery disease Acute Cough Acute Elevated troponin Acute Exacerbation of asthma Acute MRSA (methicillin resistant Staphylococcus aureus) Acute 05/06/15
--- NOTE | 2017-08-13 22:31 | GPROG ---
[f rep st] PROGRESS NOTE SUBJECTIVE: The patient is confused. At the time of my visit, he tried to get up out of his chair a nd the break was not on so he slid to the floor. He did not strike his head. He is unable to get up . A code strong is called for assistance. He complains of back pain in his lumbar spine. He denies chest pain or shortness of breath. He is afebrile. OBJECTIVE: VITAL SIGNS: Stable. GENERAL: The patient is awake, alert, but confused with delirium. HEENT: Head is atraumatic, normocephalic. Pupils equal, round, react to light. Extraocular motio ns intact. Oropharynx clear. Mucous membranes are moist. NECK: Supple. There is no JVD. HEART: Regular rate and rhythm. LUNGS: Clear to auscultation bilaterally. ABDOMEN: Soft, nondistended, nontender. Normoactive bowel sounds. SKIN: He has a dressing over his lumbosacral region. There i s no surrounding erythema or drainage. SPINE: He is tender to palpation along his lumbar spine. EX TREMITIES: Without cyanosis, clubbing, or edema. NEUROLOGIC: Delirium as above. He otherwise move s all 4 extremities. There are no focal neuro deficits. LABORATORY DATA: His labs are reviewed. His blood cultures again are growing gram-positive cocci in clusters. ASSESSMENT AND PLAN: 1. Bacteremia. Possible sources include an infected endograft versus possible lumbar spine source. Persistently positive blood cultures noted. I am concerned we do not have source control. Will lik montez proceed with MRI of the lumbar spine to rule out osteomyelitis or diskitis as the source of persi stent bacteremia. Discussed with Infectious Disease. 2. Penetrating ulcer of the aorta. He is status post endograft performed by Cardiovascular Surgery. There has been some question if this is a mycotic aneurysm. It sounds as though he is not a surgic al candidate for any consideration of removal of the endograft. As above, will continue treatment wi th vancomycin while searching for other possible sources of bacteremia. 3. Encephalopathy. This may be related to alcohol. Will also consider Wernicke's. Will add Wernick e-dose thiamine to see if this is helpful. Cognitive evaluation is also requested. 4. Acute blood loss anemia. There is no evidence of active bleeding. DISPOSITION: Continue inpatient status. /[id number]/MODL
[2017-08-14 04:22] LABS: PLATELET COUNT 238 10^3/uL (150-400)
[2017-08-14] MEDS: CLOTRIMAZOLE 10 MG TROCHE PO SCH ×7 (05:40→21:27)
[2017-08-14] MEDS: PATCH REMOVAL 1 EA PATCH TD SCH ×2 (05:46→22:00)
[2017-08-14] MEDS: THIAMINE HCL 500 MG in NS 100 ML IV SCH ×4 (05:46→23:47)
[2017-08-14] MEDS: TIOTROPIUM INHALER 18 MCG/DOSE 5 DOSE/MDI IH SCH ×2 (05:46→08:11)
[2017-08-14] MEDS: PANTOPRAZOLE SODIUM 40 MG TAB PO SCH ×4 (05:46→21:28)
[2017-08-14] MEDS: LEVOTHYROXINE 112 MCG TAB PO SCH ×2 (05:47→10:34)
[2017-08-14] MEDS: CYANO/VITAMIN B12 1000 MCG TAB PO SCH ×2 (05:47→10:34)
[2017-08-14] MEDS: LIDOCAINE 4%/MENTHOL 1% PATCH TD SCH ×2 (05:47→10:34)
[2017-08-14] MEDS: BECLOMETHASONE QVAR 80 REDIHALER 120 INH/10.6 GM MDI IH SCH ×3 (05:47→19:54)
[2017-08-14] MEDS: FUROSEMIDE 20 MG TAB PO SCH ×2 (05:47→10:34)
[2017-08-14] MEDS: VANCOMYCIN 1.5 GM in D5W 250 ML IV SCH (05:48)
[2017-08-14] MEDS: NEBIVOLOL HCL 5 MG TAB PO SCH ×3 (05:48→18:51)
--- NOTE | 2017-08-14 10:02 | PCMIDPN ---
Assessment/Plan: # MRSA bacteremia associated with aortic aneurysm, query mycotic. Blood cultures remain positive from 08/12/2017. Concern with ongoing lumbar back pain. Also could consider due to superinfection of graft placed during period of bacteremia, but would rule out other causes first --Continue IV vancomycin, dose adjusted this AM due to high trough yesterday, Cr 0.6 --Obtain MRI of the lumbar spine with and without contrast --Repeat blood cultures today --will need PICC line changed once blood cultures cleared # Thrush : resolved, on co-triamazole Medications Vancomycin 1.25 g IV Q 12h #8 Cotriamazole Microbiology 08/05/17 10:07 Blood Cx (1) : MRSA 08/12/17 11:00 Blood Cx (2): MRSA 08/08/17 06:00 Blood Cx (2): MRSA Subjective: patient did not get MRI because he did not want to get it at 8pm at night back pain stable feels like he needs to urinate all the time Objective: Vital Signs Temp Pulse Resp BP Pulse Ox 36.6 C 89 15 113/64 98 08/14/17 07:12 08/14/17 08:41 08/14/17 08:41 08/14/17 07:12 08/14/17 08:41 Laboratory Results 08/14/17 04:10 08/14/17 04:10 08/13/17 08/14/17 08/15/17 05:59 05:59 05:59 Intake Total 1140 650 360 Output Total 850 450 100 Balance 290 200 260 Exam Gen: disheveled somewhat irritable male, no acute distress HEENT: Poor dentition Cardiovascular RRR, no murmur Chest: Poor inspiratory effort Abdomen: Soft nontender, bowel sounds present : No Monge Skin: No rashes Extremities: Minimal edema with hyperpigmentation a stocking distribution consistent with past venous insufficiency PICC line right upper extremity C/ D/I Greater than 35 min was spent with education counseling regarding course of events in that bacteremia preceded graft placement, coordination of care with Dr. Charleen Guidry. Course of events and planned treatment and workup discussed with patient and his 1 friend at bedside. ICD10 Worksheet Patient Problems: Problems Problem Status Onset Altered mental status Acute Penetrating ulcer of aorta Acute Acute appendicitis Acute C. difficile enteritis Acute 11/03/13 Chest pain Acute Chronic Disease Mgmt/Transitional Care Acute Chronic obstructive pulmonary disease with acute exacerbation Acute Coronary artery disease Acute Cough Acute Elevated troponin Acute Exacerbation of asthma Acute MRSA (methicillin resistant Staphylococcus aureus) Acute 05/06/15
[2017-08-14] MEDS: VANCOMYCIN 1.25 GM in NS 250 ML IV SCH ×2 (10:33→21:27)
[2017-08-14] MEDS: HYDROCODONE/APAP 10/325 TAB PO PRN ×3 (10:34→21:28)
[2017-08-14] MEDS ORDERED: GADOBUTROL 10 ML VIAL IVP ONE (12:49)
[2017-08-14] MEDS ORDERED: PROTOCOL CALCIUM 1 DOSE IV PRN (19:22)
[2017-08-14] MEDS ORDERED: PROTOCOL POTASSIUM 1 DOSE MISC PRN (19:22)
--- NOTE | 2017-08-14 20:03 | HOSPPROG ---
Hospitalist Progress Note Assessment/Plan: 71 yo M w aortic ulcer s/p endovascular stent and MRSA bacteremia MRSA bacteremia: persistent, source unclear, possibly endograft or consider lumbar spine source MRI L spine today reviewed - very small rim enhancing fluid collections, largest 1x2 cm outside canal in soft tissue discussed MRI findings with radiology, could obtain fluid from largest collection for culture if desired will review with ID in am rpt BCx's today continue vancomycin penetrating aortic ulcer: s/p endovascular repair by Dr. Li not a candidate for recurrent surgery follow up CTA [place] encephalopathy: improved, some concern he is drinking mouthwash, which will be removed from his room cog eval per speech pending ABLA: hct stable follow daily received 4 units during hospitalization proph: defer lovenox with low hgb, recent blood loss requiring transfusion dispo: inpt Subjective: Pt doing better today, mentation improved. No fevers/chills. Continues to have back pain. Objective: Vital Signs Temp Pulse Resp BP Pulse Ox 37.6 C 90 17 123/68 H 93 08/14/17 15:49 08/14/17 15:49 08/14/17 15:49 08/14/17 15:49 08/14/17 15:49 Microbiology 08/08/17 06:00 Blood Culture - Final Blood MRSA 08/08/17 05:45 Blood Culture - Final Blood MRSA Laboratory Results 08/14/17 04:10 08/14/17 19:00 08/13/17 08/14/17 08/15/17 05:59 05:59 05:59 Intake Total 3615 690 4437 Output Total 421 636 2784 Balance 290 200 670 PT 17.0 SEC (12.0-15.0) H 08/05/17 18:30 INR 1.37 (0.83-1.16) H 08/05/17 18:30 - Physical Exam Constitutional: no apparent distress Eyes: PERRL Ears, Nose, Mouth, Throat: moist mucous membranes Cardiovascular: regular rate and rhythym Respiratory: no respiratory distress Gastrointestinal: normoactive bowel sounds Skin: warm Musculoskeletal: full muscle strength Neurologic: AAOx3 Psychiatric: interacting appropriately ICD10 Worksheet Patient Problems: Problems Problem Status Onset Altered mental status Acute Penetrating ulcer of aorta Acute Acute appendicitis Acute C. difficile enteritis Acute 11/03/13 Chest pain Acute Chronic Disease Mgmt/Transitional Care Acute Chronic obstructive pulmonary disease with acute exacerbation Acute Coronary artery disease Acute Cough Acute Elevated troponin Acute Exacerbation of asthma Acute MRSA (methicillin resistant Staphylococcus aureus) Acute 05/06/15
[2017-08-14] MEDS ORDERED: POTASSIUM CL 10 MEQ TAB PO ONE (21:08)
[2017-08-14] MEDS: TAMSULOSIN HCL 0.4 MG CAP PO SCH (21:28)
[2017-08-15] MEDS: HYDROCODONE/APAP 10/325 TAB PO PRN ×4 (02:13→20:18)
[2017-08-15] MEDS: THIAMINE HCL 500 MG in NS 100 ML IV SCH ×3 (05:26→22:15)
[2017-08-15] MEDS: CLOTRIMAZOLE 10 MG TROCHE PO SCH ×5 (05:26→22:16)
[2017-08-15] MEDS ORDERED: POTASSIUM CL 10 MEQ TAB PO ONE ×2 (08:04→20:16)
[2017-08-15] MEDS ORDERED: CALCIUM GLUCONATE 50 ML IV ONE (08:05)
[2017-08-15] MEDS: BECLOMETHASONE QVAR 80 REDIHALER 120 INH/10.6 GM MDI IH SCH ×2 (08:50→21:17)
[2017-08-15] MEDS: ALBUTEROL 60 PUFFS/8 GM MDI IH PRN ×2 (08:50→21:17)
[2017-08-15] MEDS: TIOTROPIUM INHALER 18 MCG/DOSE 5 DOSE/MDI IH SCH (08:52)
[2017-08-15] MEDS: VANCOMYCIN 1.25 GM in NS 250 ML IV SCH ×2 (08:55→20:20)
[2017-08-15] MEDS: LIDOCAINE 4%/MENTHOL 1% PATCH TD SCH (08:56)
[2017-08-15] MEDS: FUROSEMIDE 20 MG TAB PO SCH (08:57)
[2017-08-15] MEDS: NEBIVOLOL HCL 5 MG TAB PO SCH ×2 (08:57→18:32)
[2017-08-15] MEDS: LEVOTHYROXINE 112 MCG TAB PO SCH (08:57)
[2017-08-15] MEDS: CYANO/VITAMIN B12 1000 MCG TAB PO SCH (08:57)
[2017-08-15] MEDS: PANTOPRAZOLE SODIUM 40 MG TAB PO SCH ×2 (08:57→20:17)
--- NOTE | 2017-08-15 10:01 | SOAPPROG ---
SOAP Progress Note Assessment/Plan: Assessment: Plan: 08/06/17 07:15 s/p endograft pulses intact, groins ok reconsult prn brodie schedule f/u CTs @ 1,3,6,12 then yearly 08/15/17 09:49 following w ID pt presented w CVA symptoms, resolved before admit CT neck in ER suggested SAEED with expanding hematoma compared to 3 days prior, no evidence in pt of infection on admit refused emergent endograft, agreed to proceed late Saturday, therefore scheduled for following morning day of procedure had altered clinical status, less responsive, hypotension, etc. Concern for worsening leak vs toxicity of uncertain origin, vs other bacteremia was entertained but nothing to suggest up to that point, mycotic ulcer very uncommon and this looked liked SAEED by my assessment until that point Decision was to treat the life threatening problem we did know about and continue to eval post graft placement Pt has no family to d/w and was unstable therefore I proceeded with endograft. During the grafting pt had a large GI bleed which was subsequently controlled endoscopically which I thought might explain his change in status subsequent blood cultures from pre-procedure are MRSA (known MRSA colonizer fro previous admissions) concern for mycotic aneurysm now being raised although nothing in the preceding clinical and lab would have suggested that If no other source identified, unlikely to survive w/o major arch surgery in a very chronically ill gentleman with multiple high risk co-morbidities pt and concerned friend advised will follow results of abscess drainage as scheduled Objective: Vital Signs Temp Pulse Resp BP Pulse Ox 36.6 C 80 18 122/62 H 93 08/15/17 08:00 08/15/17 08:00 08/15/17 08:00 08/15/17 08:00 08/15/17 08:00 Microbiology 08/08/17 06:00 Blood Culture - Final Blood MRSA 08/08/17 05:45 Blood Culture - Final Blood MRSA Laboratory Results 08/15/17 05:34 08/15/17 05:34 08/14/17 08/15/17 08/16/17 05:59 05:59 05:59 Intake Total 650 2845 Output Total 450 1425 150 Balance 200 1420 -150 PT 17.0 SEC (12.0-15.0) H 08/05/17 18:30 INR 1.37 (0.83-1.16) H 08/05/17 18:30 ICD10 Worksheet Patient Problems: Problems Problem Status Onset Altered mental status Acute Penetrating ulcer of aorta Acute Acute appendicitis Acute C. difficile enteritis Acute 11/03/13 Chest pain Acute Chronic Disease Mgmt/Transitional Care Acute Chronic obstructive pulmonary disease with acute exacerbation Acute Coronary artery disease Acute Cough Acute Elevated troponin Acute Exacerbation of asthma Acute MRSA (methicillin resistant Staphylococcus aureus) Acute 05/06/15
--- NOTE | 2017-08-15 10:42 | PCMIDPN ---
Assessment/Plan: # MRSA bacteremia associated with aortic aneurysm, query mycotic. Blood cultures remain positive from 08/12/2017. Small abscess identified in arslan- spinal musculature, largest 1.8cm --drain abscess --repeat blood cx 08/17 --will eventually need PICC line exchanged --check Cr today, if stable, check Vanco T tomorrow AM # Thrush : resolved, on co-triamazole Medications Vancomycin 1.25 g IV Q 12h #9 Cotriamazole Microbiology 08/05/17 10:07 Blood Cx (1) : MRSA 08/12/17 11:00 Blood Cx (2): MRSA, vanco KATLYN = 1 08/08/17 06:00 Blood Cx (2): MRSA 08/14/17 04:20 Blood 2/2 Gram Positive Cocci Clusters Subjective: minimal c/o today still with back pain Objective: Vital Signs Temp Pulse Resp BP Pulse Ox 36.6 C 80 18 122/62 H 93 08/15/17 08:00 08/15/17 08:00 08/15/17 08:00 08/15/17 08:00 08/15/17 08:00 Microbiology 08/08/17 06:00 Blood Culture - Final Blood MRSA 08/08/17 05:45 Blood Culture - Final Blood MRSA Laboratory Results 08/15/17 05:34 08/15/17 05:34 08/14/17 08/15/17 08/16/17 05:59 05:59 05:59 Intake Total 650 2845 Output Total 450 1425 150 Balance 200 1420 -150 - Physical Exam General Appearance: alert, no apparent distress EENT: poor dentition Respiratory: No accessory muscle use, No crackles Neck: supple Cardiac/Chest: regular rate, rhythm Extremities: other (hyperpigmentation in stocking distributino), No pedal edema Abdomen: non-tender, soft Skin: warm/dry, No diaphoresis, No rash Neuro/Psych: alert, normal mood/affect, oriented x 3 - Line/s RUE PICC Lines: No drainage, No erythema - Time Spent With Patient Time Spent with Patient: greater than 35 minutes Time Spent with Patient: Greater than 35 minutes spent on this patients care, greater than 50% of time spent counseling, educating, and coordinating care regarding the above mentioned plan. ICD10 Worksheet Patient Problems: Problems Problem Status Onset Altered mental status Acute Penetrating ulcer of aorta Acute Acute appendicitis Acute C. difficile enteritis Acute 11/03/13 Chest pain Acute Chronic Disease Mgmt/Transitional Care Acute Chronic obstructive pulmonary disease with acute exacerbation Acute Coronary artery disease Acute Cough Acute Elevated troponin Acute Exacerbation of asthma Acute MRSA (methicillin resistant Staphylococcus aureus) Acute 05/06/15
--- NOTE | 2017-08-15 12:46 | ASMTCMCOM ---
CM Note CM Note Notes: Pts case discussed in morning rounds. Updates sent to [facility]. CM spoke to Jannette at [facility] and she is saving him a bed. CM to follow. Plan: [facility] Date Signed: 08/15/2017 12:44 PM Electronically Signed By:SILVERIO Gilliam
[2017-08-15] MEDS ORDERED: LIDOCAINE 1% 300 MG/30 ML SDV ONE (13:51)
[2017-08-15] MEDS ORDERED: MAGNESIUM HYDROXIDE 30 ML UDCUP PO PRN (15:01)
[2017-08-15] MEDS ORDERED: BISACODYL 10 MG SUPP PR PRN (15:01)
[2017-08-15] MEDS ORDERED: LACTULOSE 20 GM/30 ML UDCUP PO PRN (15:01)
[2017-08-15] MEDS ORDERED: POLYETHYLENE GLYCOL 3350 17 GM PKT PO PRN (15:01)
--- NOTE | 2017-08-15 17:45 | HOSPPROG ---
Hospitalist Progress Note Assessment/Plan: 71 yo M w aortic ulcer s/p endovascular stent and MRSA bacteremia MRSA bacteremia: persistent, source unclear, possibly mycotic aneursym. MRI L spine yesterday to look for lumbar spine source, several small abscess noted, likely secondary to MRSA bacteremia. Discussed with ID. IR to drain largest abscess today for culture continue vancomycin rpt BCx's saturday penetrating aortic ulcer: s/p endovascular repair by Dr. Li poor candidate for recurrent surgery follow up CTA [place] encephalopathy: improved, cog eval per speech on slums ABLA: hct stable ~8 past several days follow daily received 4 units during hospitalization proph: defer lovenox with low hgb, recent blood loss requiring transfusion code status: readdressed code status, pt wishes to remain full code dispo: cont inpt Subjective: Pt is frustrated today, voice is hoarse. He has pain after abscess drainage from back. No fevers/chills. No CP or SOB. No bleeding. Objective: Vital Signs Temp Pulse Resp BP Pulse Ox 36.6 C 81 16 117/61 96 08/15/17 12:00 08/15/17 12:00 08/15/17 12:00 08/15/17 12:00 08/15/17 12:00 Laboratory Results 08/15/17 15:15 08/15/17 05:34 08/14/17 08/15/17 08/16/17 05:59 05:59 05:59 Intake Total 650 2845 Output Total 450 1425 150 Balance 200 1420 -150 PT 17.0 SEC (12.0-15.0) H 08/05/17 18:30 INR 1.37 (0.83-1.16) H 08/05/17 18:30 - Physical Exam Constitutional: no apparent distress Eyes: PERRL Ears, Nose, Mouth, Throat: moist mucous membranes Cardiovascular: regular rate and rhythym Respiratory: no respiratory distress, clear to auscultation Gastrointestinal: normoactive bowel sounds, soft, non-tender abdomen Skin: warm Musculoskeletal: full muscle strength Neurologic: AAOx3 Psychiatric: interacting appropriately ICD10 Worksheet Patient Problems: Problems Problem Status Onset Altered mental status Acute Penetrating ulcer of aorta Acute Acute appendicitis Acute C. difficile enteritis Acute 11/03/13 Chest pain Acute Chronic Disease Mgmt/Transitional Care Acute Chronic obstructive pulmonary disease with acute exacerbation Acute Coronary artery disease Acute Cough Acute Elevated troponin Acute Exacerbation of asthma Acute MRSA (methicillin resistant Staphylococcus aureus) Acute 05/06/15
[2017-08-15] MEDS: TAMSULOSIN HCL 0.4 MG CAP PO SCH (20:17)
[2017-08-15] MEDS: SENNOSIDES/DOCUSATE SODIUM TAB PO SCH (21:30)
[2017-08-15] MEDS: PATCH REMOVAL 1 EA PATCH TD SCH (21:30)
[2017-08-16] MEDS: HYDROCODONE/APAP 10/325 TAB PO PRN ×5 (00:50→18:43)
[2017-08-16] MEDS: CLOTRIMAZOLE 10 MG TROCHE PO SCH ×5 (05:47→20:37)
[2017-08-16] MEDS: THIAMINE HCL 500 MG in NS 100 ML IV SCH ×3 (05:48→20:37)
[2017-08-16 06:57] LABS: PLATELET COUNT 222 10^3/uL (150-400)
[2017-08-16] MEDS ORDERED: CALCIUM GLUCONATE 50 ML IV ONE (08:09)
[2017-08-16] MEDS ORDERED: POTASSIUM CL 10 MEQ TAB PO ONE ×2 (08:12→22:31)
[2017-08-16] MEDS: NEBIVOLOL HCL 5 MG TAB PO SCH ×2 (08:52→17:50)
[2017-08-16] MEDS: LIDOCAINE 4%/MENTHOL 1% PATCH TD SCH (08:52)
[2017-08-16] MEDS: VANCOMYCIN 1.25 GM in NS 250 ML IV SCH ×2 (08:52→20:36)
[2017-08-16] MEDS: SENNOSIDES/DOCUSATE SODIUM TAB PO SCH ×2 (08:52→20:36)
[2017-08-16] MEDS: CYANO/VITAMIN B12 1000 MCG TAB PO SCH (08:52)
[2017-08-16] MEDS: PANTOPRAZOLE SODIUM 40 MG TAB PO SCH ×2 (08:53→20:36)
[2017-08-16] MEDS: LEVOTHYROXINE 112 MCG TAB PO SCH (08:53)
[2017-08-16] MEDS: FUROSEMIDE 20 MG TAB PO SCH (08:53)
[2017-08-16] MEDS: BECLOMETHASONE QVAR 80 REDIHALER 120 INH/10.6 GM MDI IH SCH ×2 (08:54→21:10)
[2017-08-16] MEDS: ALBUTEROL 60 PUFFS/8 GM MDI IH PRN (08:56)
[2017-08-16] MEDS: TIOTROPIUM INHALER 18 MCG/DOSE 5 DOSE/MDI IH SCH (09:12)
--- NOTE | 2017-08-16 10:16 | PCMIDPN ---
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 Graft placed early in hospitalization to prevent rupture of thoracic aorta. Blood cultures remain positive from 08/12/2017. Also found to have some small abscesses in the paraspinal musculature L4-L5, L5-S1 s/p drainage small abscess identified in arslan-spinal musculature, gram stain neg for bacteria --repeat blood cx 08/17 --will eventually need PICC line exchanged --Vanco trough good and 17 today, continue current dose --if blood cultures are persistently positive will have to address the potential for resection/ replacement of thoracic aorta --if blood cultures are able to be cleared, will plan 6-8 weeks of IV therapy then lifelong suppression. # anemia, very slight trend down: BP stable, neck exam within normal limits. # Thrush : resolved, on co-triamazole Medications Vancomycin 1.25 g IV Q 12h #10 Cotriamazole Microbiology 08/05/17 10:07 Blood Cx (1) : MRSA 08/12/17 11:00 Blood Cx (2): MRSA, vanco KATLYN = 1 08/08/17 06:00 Blood Cx (2): MRSA 08/14/17 04:20 Blood 2/2 Gram Positive Cocci Clusters Subjective: Patient is feeling stable , no change in his back pain. No other specific complaints, denies diarrhea. Objective: Vital Signs Temp Pulse Resp BP Pulse Ox 36.7 C 90 18 120/61 96 08/16/17 08:00 08/16/17 08:00 08/16/17 08:00 08/16/17 08:00 08/16/17 08:00 Microbiology 08/15/17 14:30 Gram Stain - Final Back - Aspirate Laboratory Results 08/16/17 06:49 08/16/17 07:17 08/15/17 08/16/17 08/17/17 05:59 05:59 05:59 Intake Total 2845 1235 Output Total 1425 450 Balance 1420 785 - Physical Exam General Appearance: alert, no apparent distress EENT: poor dentition, other (Hoarse voice but speaking clearly), No thrush Respiratory: lungs clear, No accessory muscle use Neck: supple, other (No neck swelling), No tender lateral, No tender midline Cardiac/Chest: regular rate, rhythm Extremities: No pedal edema Abdomen: non-tender, soft Male Genitalia: No augustine, No scrotal edema Skin: pallor, No diaphoresis, No jaundice, No rash Neuro/Psych: alert, normal mood/affect, oriented x 3 - Line/s RUE PICC Lines: No drainage, No erythema - Time Spent With Patient Time Spent with Patient: greater than 35 minutes (Case discussed w dr mckinney) Time Spent with Patient: Greater than 35 minutes spent on this patients care, greater than 50% of time spent counseling, educating, and coordinating care regarding the above mentioned plan. ICD10 Worksheet Patient Problems: Problems Problem Status Onset Altered mental status Acute Penetrating ulcer of aorta Acute Acute appendicitis Acute C. difficile enteritis Acute 11/03/13 Chest pain Acute Chronic Disease Mgmt/Transitional Care Acute Chronic obstructive pulmonary disease with acute exacerbation Acute Coronary artery disease Acute Cough Acute Elevated troponin Acute Exacerbation of asthma Acute MRSA (methicillin resistant Staphylococcus aureus) Acute 05/06/15
--- NOTE | 2017-08-16 15:22 | ASMTCMCOM ---
CM Note CM Note Notes: Pts case discussed in morning rounds. Pts H&H dropped. CTA and blood culture will be repeated. If blood cultures are positive pt may need to be transferred to [facility] for an entire aorta replacement. Needs are TBD at this time. CM to follow. Plan: TBD Date Signed: 08/16/2017 03:21 PM Electronically Signed By:SILVERIO Gilliam
--- NOTE | 2017-08-16 19:42 | HOSPPROG ---
Hospitalist Progress Note Assessment/Plan: 71 yo M w leaking aortic ulcer s/p endovascular stent and MRSA bacteremia MRSA bacteremia: persistent x10 d, source unclear, but concern for mycotic aneurysm of aorta. MRI L spine with small abscess, Cx's neg. Discussed with ID. continue vancomycin rpt BCx's saturday penetrating aortic ulcer: s/p endovascular repair by Dr. Li poor candidate for recurrent surgery consider repeat CTA vs angiography to evaluate status with downtrending hgb, will d/w cards encephalopathy: improved, cog eval per speech on slums ABLA: hct stable ~8 past several days follow daily received 4 units during hospitalization proph: defer lovenox with low hgb, recent blood loss requiring transfusion code status: readdressed code status, pt wishes to remain full code dispo: cont inpt Subjective: Pt doing ok, frustrated with poor response to therapy. No fevers/ chills. Objective: Vital Signs Temp Pulse Resp BP Pulse Ox 36.8 C 89 15 141/75 H 92 08/16/17 16:00 08/16/17 16:00 08/16/17 16:00 08/16/17 16:00 08/16/17 16:00 Microbiology 08/15/17 14:30 Gram Stain - Final Back - Aspirate Laboratory Results 08/16/17 06:49 08/16/17 07:17 08/15/17 08/16/17 08/17/17 05:59 05:59 05:59 Intake Total 2845 1235 250 Output Total 1425 450 300 Balance 1420 785 -50 PT 17.0 SEC (12.0-15.0) H 08/05/17 18:30 INR 1.37 (0.83-1.16) H 08/05/17 18:30 - Physical Exam Constitutional: no apparent distress Eyes: PERRL Ears, Nose, Mouth, Throat: moist mucous membranes Cardiovascular: regular rate and rhythym Respiratory: no respiratory distress, clear to auscultation Gastrointestinal: normoactive bowel sounds, soft, non-tender abdomen Skin: warm Musculoskeletal: full muscle strength Neurologic: AAOx3 Psychiatric: interacting appropriately ICD10 Worksheet Patient Problems: Problems Problem Status Onset Altered mental status Acute Penetrating ulcer of aorta Acute Acute appendicitis Acute C. difficile enteritis Acute 11/03/13 Chest pain Acute Chronic Disease Mgmt/Transitional Care Acute Chronic obstructive pulmonary disease with acute exacerbation Acute Coronary artery disease Acute Cough Acute Elevated troponin Acute Exacerbation of asthma Acute MRSA (methicillin resistant Staphylococcus aureus) Acute 05/06/15
[2017-08-16] MEDS: PATCH REMOVAL 1 EA PATCH TD SCH (20:36)
[2017-08-16] MEDS: TAMSULOSIN HCL 0.4 MG CAP PO SCH (20:37)
[2017-08-17] MEDS: ALBUTEROL 60 PUFFS/8 GM MDI IH PRN ×3 (02:51→21:06)
[2017-08-17] MEDS: HYDROCODONE/APAP 10/325 TAB PO PRN ×4 (03:28→20:13)
[2017-08-17] MEDS: THIAMINE HCL 500 MG in NS 100 ML IV SCH ×3 (06:02→20:13)
[2017-08-17] MEDS: CLOTRIMAZOLE 10 MG TROCHE PO SCH ×5 (06:05→20:13)
[2017-08-17] MEDS: BECLOMETHASONE QVAR 80 REDIHALER 120 INH/10.6 GM MDI IH SCH ×2 (08:41→21:05)
[2017-08-17] MEDS: TIOTROPIUM INHALER 18 MCG/DOSE 5 DOSE/MDI IH SCH (08:55)
[2017-08-17] MEDS ORDERED: POTASSIUM CL 10 MEQ TAB PO ONE ×2 (09:32→19:57)
[2017-08-17] MEDS: VANCOMYCIN 1.25 GM in NS 250 ML IV SCH ×2 (09:59→20:12)
[2017-08-17] MEDS: SENNOSIDES/DOCUSATE SODIUM TAB PO SCH ×2 (10:07→20:13)
[2017-08-17] MEDS: PANTOPRAZOLE SODIUM 40 MG TAB PO SCH ×2 (10:07→20:12)
[2017-08-17] MEDS: FUROSEMIDE 20 MG TAB PO SCH (10:08)
[2017-08-17] MEDS: LEVOTHYROXINE 112 MCG TAB PO SCH (10:08)
[2017-08-17] MEDS: CYANO/VITAMIN B12 1000 MCG TAB PO SCH (10:08)
[2017-08-17] MEDS: NEBIVOLOL HCL 5 MG TAB PO SCH ×2 (10:09→16:00)
[2017-08-17] MEDS: LIDOCAINE 4%/MENTHOL 1% PATCH TD SCH (10:10)
--- NOTE | 2017-08-17 10:49 | HOSPPROG ---
Hospitalist Progress Note Assessment/Plan: 71 yo M w leaking aortic ulcer s/p endovascular stent and MRSA bacteremia MRSA bacteremia: persistent x10 d, source unclear, but concern for mycotic aneurysm of aorta. MRI L spine with small abscess, Cx's neg. Discussed with ID. continue vancomycin rpt BCx's today, pending penetrating aortic ulcer: s/p endovascular repair by Dr. Li poor candidate for recurrent surgery, but would consider transfer to [place] or [facility] for further opinions if BCx's don't clear discussed with Dr. French consider repeat CTA vs angiography encephalopathy: improved, cog eval per speech on slums ABLA: hct stable ~8 past several days follow daily received 4 units during hospitalization proph: start lovenox given high risk, previously held due to significant bleeding requiring transfusion and low hgb, but hgb now stable and no further e/ o bleeding code status: readdressed code status, pt wishes to be DNR, which will be honored dispo: cont inpt, PT/OT evals, encouraged ambulation Subjective: PT doing well today. More conversive. Denies significant pain. NO fevers/chills. Taking po well. Objective: Vital Signs Temp Pulse Resp BP Pulse Ox 37.0 C 105 H 18 142/59 H 96 08/17/17 09:16 08/17/17 09:16 08/17/17 09:16 08/17/17 09:16 08/17/17 09:16 Microbiology 08/15/17 14:30 Gram Stain - Final Back - Aspirate Laboratory Results 08/17/17 03:20 08/17/17 03:20 08/16/17 08/17/17 08/18/17 05:59 05:59 05:59 Intake Total 1235 700 Output Total 450 900 200 Balance 785 -200 -200 PT 17.0 SEC (12.0-15.0) H 08/05/17 18:30 INR 1.37 (0.83-1.16) H 08/05/17 18:30 - Physical Exam Constitutional: no apparent distress Eyes: PERRL Ears, Nose, Mouth, Throat: moist mucous membranes Cardiovascular: regular rate and rhythym Respiratory: no respiratory distress, clear to auscultation Gastrointestinal: normoactive bowel sounds, soft, non-tender abdomen Skin: warm Musculoskeletal: full muscle strength Neurologic: AAOx3 Psychiatric: interacting appropriately ICD10 Worksheet Patient Problems: Problems Problem Status Onset Altered mental status Acute Penetrating ulcer of aorta Acute Acute appendicitis Acute C. difficile enteritis Acute 11/03/13 Chest pain Acute Chronic Disease Mgmt/Transitional Care Acute Chronic obstructive pulmonary disease with acute exacerbation Acute Coronary artery disease Acute Cough Acute Elevated troponin Acute Exacerbation of asthma Acute MRSA (methicillin resistant Staphylococcus aureus) Acute 05/06/15
--- NOTE | 2017-08-17 13:37 | SOAPPROG ---
SOAP Progress Note Assessment/Plan: Assessment: 1.mrsa sepsis He had an aortic clip placed in his aorta and he has done well since that time. However he has MRSA in his blood in his not been clear. The hospitalist and I spent 20 min or more with him today going over his options and our understanding of what is going on. He does have a clear understanding He is going to try to exercise more He is going to try to get up He needs significant help in he wants to make sure the person is helping him is good at it and we reassured him that they would be. I also talked to him specifically about the fact that if were not coming up with an answer that he likes when we give him alternatives or if we get the point where we think he may need surgical intervention because perhaps that graft that he has is infected and something needs to be done with that we would plan on transferring him. He does not want to use our Cardiac surgery service. It is my plan would be to transfer him to the [facility] and get their opinions on options. At that point I would seriously consider if it surgical intervention needs to be done where the very best placed in the country is for him to get that procedure done. Hopefully is unaccompanied any of that. Hopefully his infection is clearing with the aggressive treatment of infectious disease in their expert help. We also end over end of life care and after discussion with the hospitalist myself he is decided that he wants to be a do not resuscitate patient and this consisting with what he has told me in the past and I sport completely that approach. his [id number] was there and was somewhat upset about some issues of on there being a time Yesterday when he was not allowed to have visitors. I went over that with [id number] and with Nabil as did the hospitalists on both issues and we both agreed that what ever the miss understanding was that they feel there was a misunderstanding of our Ranjit sees our that if there it issues and we need to block visitors for a while we do that that was the decision of someone and so we should all respect that choice and we all have to go along with that choice and no harm came about a no harm was med of it and nobody is suspicious of him for any particular behavior and there was no problems are side. I asked the Nabil if it was an issue for him and he said no he is totally fine now and I asked his [id number] was upset about it that was okay with him that would just let it go and that we the hospitalist and I both apologize for any miss understanding on behalf of the hospital on and that was totally acceptable to him as well and I believe the issue is but behind us now. They both know that were available to talk about at any time if they want us to. Plan: 08/17/17 13:32 Subjective: He is feeling tired. He is feeling weak. He has not had fever chills or cough He has no chest pain He is not strong enough to get up and walk around. He needs help If they help is in good enough he is worried he could fall. He is trying very hard to get stronger He is trying very hard to get more ambulation. He has no nausea vomiting He does not have any new rashes. Objective: Vital Signs Temp Pulse Resp BP Pulse Ox 36.5 C 93 19 134/82 H 95 08/17/17 12:00 08/17/17 12:00 08/17/17 12:00 08/17/17 12:00 08/17/17 12:00 Microbiology 08/12/17 10:40 Blood Culture - Final Blood MRSA 08/12/17 11:00 Blood Culture - Final Blood MRSA 08/15/17 14:30 Gram Stain - Final Back - Aspirate Laboratory Results 08/17/17 03:20 08/17/17 03:20 08/16/17 08/17/17 08/18/17 05:59 05:59 05:59 Intake Total 1235 700 Output Total 450 900 200 Balance 785 -200 -200 PT 17.0 SEC (12.0-15.0) H 08/05/17 18:30 INR 1.37 (0.83-1.16) H 08/05/17 18:30 ICD10 Worksheet Patient Problems: Problems Problem Status Onset Altered mental status Acute Penetrating ulcer of aorta Acute Acute appendicitis Acute C. difficile enteritis Acute 11/03/13 Chest pain Acute Chronic Disease Mgmt/Transitional Care Acute Chronic obstructive pulmonary disease with acute exacerbation Acute Coronary artery disease Acute Cough Acute Elevated troponin Acute Exacerbation of asthma Acute MRSA (methicillin resistant Staphylococcus aureus) Acute 05/06/15
--- NOTE | 2017-08-17 14:19 | PCMIDPN ---
Assessment/Plan: 1. 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 Hopefully he will clear this bacteremia! If not, plan is to transfer him to [facility] for discussion of further surgical interventions, as graft likely involved. 2. Oral candidiasis: Continue clotrimazole troches. Resolved. 3. Dysphonia: ENT will evaluate on Saturday, per the patient's power of health care attorney. He will likely need laryngoscopy given his history. 4. History of paraspinal fluid collection status post aspiration: So far this is sterile. 08/17/17 14:19 Subjective: Complaining of ongoing dysphonia. Cjrau-wk-ejbjleri tells me that he has a history of vocal cord nodules. Patient denies fevers, shaking chills nausea or vomiting. Objective: Vancomycin 1.25 g IV q.12 hours day 11 No fevers Vital Signs Temp Pulse Resp BP Pulse Ox 36.5 C 93 19 134/82 H 95 08/17/17 12:00 08/17/17 12:00 08/17/17 12:00 08/17/17 12:00 08/17/17 12:00 Microbiology 08/12/17 10:40 Blood Culture - Final Blood MRSA 08/12/17 11:00 Blood Culture - Final Blood MRSA 08/15/17 14:30 Gram Stain - Final Back - Aspirate Laboratory Results 08/17/17 03:20 08/17/17 03:20 08/16/17 08/17/17 08/18/17 05:59 05:59 05:59 Intake Total 1235 700 Output Total 450 900 200 Balance 785 -200 -200 Repeat blood cultures today are pending Previous blood cultures August 14 with MRSA Back aspirate no growth - Physical Exam General Appearance: no apparent distress, obese, other (dysphonic) EENT: No thrush Respiratory: lungs clear Cardiac/Chest: other (Distant heart sounds, S1-S2) Extremities: other (PICC line right upper extremity looks fine) Abdomen: non-tender, soft Skin: No rash ICD10 Worksheet Patient Problems: Problems Problem Status Onset Altered mental status Acute Penetrating ulcer of aorta Acute Acute appendicitis Acute C. difficile enteritis Acute 11/03/13 Chest pain Acute Chronic Disease Mgmt/Transitional Care Acute Chronic obstructive pulmonary disease with acute exacerbation Acute Coronary artery disease Acute Cough Acute Elevated troponin Acute Exacerbation of asthma Acute MRSA (methicillin resistant Staphylococcus aureus) Acute 05/06/15
[2017-08-17] MEDS: PATCH REMOVAL 1 EA PATCH TD SCH (20:13)
[2017-08-17] MEDS: TAMSULOSIN HCL 0.4 MG CAP PO SCH (20:13)
[2017-08-17] MEDS: ENOXAPARIN 40 MG/0.4 ML SYR SC SCH (21:10)
[2017-08-18] MEDS: THIAMINE HCL 500 MG in NS 100 ML IV SCH (05:46)
[2017-08-18] MEDS: CLOTRIMAZOLE 10 MG TROCHE PO SCH ×5 (05:46→20:52)
[2017-08-18] MEDS: HYDROCODONE/APAP 10/325 TAB PO PRN ×4 (06:12→20:52)
[2017-08-18] MEDS: VANCOMYCIN 1.25 GM in NS 250 ML IV SCH ×2 (07:51→21:04)
[2017-08-18] MEDS ORDERED: POTASSIUM CL 10 MEQ TAB PO ONE ×2 (08:21→21:44)
[2017-08-18] MEDS ORDERED: CALCIUM GLUCONATE 50 ML IV ONE (08:22)
--- NOTE | 2017-08-18 09:32 | PCMIDPN ---
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 Graft placed early in hospitalization to prevent rupture of thoracic aorta. Also found to have some small abscesses in the paraspinal musculature L4-L5, L5- S1 s/p drainage but cultures are negative --repeat blood cx 08/17 are negative for 24 hr --will eventually need PICC line exchanged once blood cultures negative 48 hours --Vanco trough - repeat tomorrow, creatinine 0.6 today --if blood cultures are persistently positive will have to address the potential for more urgent resection/ replacement of thoracic aorta --if blood cultures are able to be cleared, will plan 6-8 weeks of IV therapy then lifelong suppression and address need for surgical intervention as an outpatient. # Thrush : resolved, on co-triamazole Medications Vancomycin 1.25 g IV Q 12h #12 Cotriamazole Microbiology 08/05/17 10:07 Blood Cx (1) : MRSA 08/08/17 06:00 Blood Cx (2): MRSA 08/12/17 11:00 Blood Cx (2): MRSA, vanco KATLYN = 1 08/14/17 04:20 Blood 2/2 : MRSA 08/15/17 09:30 Spinal aspirate : gram stain negative; cx NGTD 08/17/2017 blood cultures (2): No growth today Subjective: no new c/o, back pain stable BMs still black Objective: Vital Signs Temp Pulse Resp BP Pulse Ox 36.6 C 88 14 141/76 H 93 08/18/17 07:59 08/18/17 07:59 08/18/17 04:00 08/18/17 07:59 08/18/17 07:59 Microbiology 08/12/17 10:40 Blood Culture - Final Blood MRSA 08/12/17 11:00 Blood Culture - Final Blood MRSA 08/15/17 14:30 Gram Stain - Final Back - Aspirate Laboratory Results 08/17/17 03:20 08/18/17 06:05 08/17/17 08/18/17 08/19/17 05:59 05:59 05:59 Intake Total 700 1200 Output Total 900 1650 Balance -200 -450 - Physical Exam General Appearance: alert, no apparent distress EENT: pale conjunctiva, No scleral icterus Respiratory: lungs clear, No accessory muscle use Neck: supple Cardiac/Chest: regular rate, rhythm Abdomen: non-tender, soft, No distended Male Genitalia: No augustine, No scrotal edema Skin: pallor, No rash Neuro/Psych: alert, normal mood/affect, oriented x 3 - Line/s RUE PICC Lines: No drainage, No erythema ICD10 Worksheet Patient Problems: Problems Problem Status Onset Altered mental status Acute Penetrating ulcer of aorta Acute Acute appendicitis Acute C. difficile enteritis Acute 11/03/13 Chest pain Acute Chronic Disease Mgmt/Transitional Care Acute Chronic obstructive pulmonary disease with acute exacerbation Acute Coronary artery disease Acute Cough Acute Elevated troponin Acute Exacerbation of asthma Acute MRSA (methicillin resistant Staphylococcus aureus) Acute 05/06/15
[2017-08-18] MEDS: BECLOMETHASONE QVAR 80 REDIHALER 120 INH/10.6 GM MDI IH SCH ×2 (09:42→21:19)
[2017-08-18] MEDS: TIOTROPIUM INHALER 18 MCG/DOSE 5 DOSE/MDI IH SCH (09:43)
[2017-08-18] MEDS: ALBUTEROL 60 PUFFS/8 GM MDI IH PRN ×2 (09:43→21:25)
[2017-08-18] MEDS: FLUTICASONE/SALMETER 500/50MCG DISKUS IH SCH ×2 (10:32→21:22)
[2017-08-18] MEDS: LIDOCAINE 4%/MENTHOL 1% PATCH TD SCH (10:43)
[2017-08-18] MEDS: LEVOTHYROXINE 112 MCG TAB PO SCH (10:45)
[2017-08-18] MEDS: SENNOSIDES/DOCUSATE SODIUM TAB PO SCH ×2 (10:49→20:51)
[2017-08-18] MEDS: CYANO/VITAMIN B12 1000 MCG TAB PO SCH (10:50)
[2017-08-18] MEDS: PANTOPRAZOLE SODIUM 40 MG TAB PO SCH ×2 (10:50→20:50)
[2017-08-18] MEDS: FUROSEMIDE 20 MG TAB PO SCH (10:50)
[2017-08-18] MEDS: ENOXAPARIN 40 MG/0.4 ML SYR SC SCH (10:51)
[2017-08-18] MEDS: NEBIVOLOL HCL 5 MG TAB PO SCH ×2 (10:59→17:22)
--- NOTE | 2017-08-18 10:59 | WOCRNPDOC ---
WOCRN Advanced Assessment Note - Skin Integrity Problem, Advanced Assess Sacrum Dressing Type: Mepilex Border (sacral) Dressing Description: Clean/Dry, Intact Integumentary Issue Intervention: Dressing Removed, Visualized Under Dressing Elana Wound Tissue: Blanching, Erythema, Thin Skin Integrity Problem Comment: Patient standing in bathroom with assist from OT and entering shower. Mepilex sacral dressing removed to reveal pink but sluggish, blanching, intact skin over sacrum and bilateral gluteal cleft. RN Nova reports that patient refusing turns. Measures to offload are in use in room. Recommend continued use of Mepilex sacral dressing for protection. Wound care does not need to follow. Please reconsult if needed.
--- NOTE | 2017-08-18 15:06 | HOSPPROG ---
Hospitalist Progress Note Assessment/Plan: 71 yo M w leaking aortic ulcer s/p endovascular stent and MRSA bacteremia MRSA bacteremia: persistent x13 d, source unclear, ?skin with h/o prior MRSA colonization. 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 MRI L spine with small abscess, Cx's neg. Discussed with ID. continue vancomycin rpt BCx's today again positive penetrating aortic ulcer: s/p endovascular repair by Dr. Li and now with concern of infected endograft poor candidate for recurrent surgery, but would consider transfer to [place] or [facility] for further opinions, pt unsure if he wants to pursue this discussed with cards and ID consider repeat CTA vs angiography encephalopathy: improved, cog eval per speech on slums ABLA: hct stable ~8 past several days received 4 units during hospitalization proph: started lovenox given high risk, previously held due to significant bleeding requiring transfusion and low hgb, but hgb now stable and no further e/ o bleeding code status: readdressed code status, pt wishes to be DNR, which will be honored dispo: cont inpt, PT/OT evals, encouraged ambulation Subjective: Pt feels ok. No pain. He is "not in any hurry" to go to the [facility]. No fevers/chills. Objective: Vital Signs Temp Pulse Resp BP Pulse Ox 35.7 C L 115 H 12 106/69 92 08/18/17 10:55 08/18/17 10:55 08/18/17 10:55 08/18/17 10:55 08/18/17 10:55 Microbiology 08/15/17 14:30 Gram Stain - Final Back - Aspirate 08/12/17 10:40 Blood Culture - Final Blood MRSA 08/12/17 11:00 Blood Culture - Final Blood MRSA Laboratory Results 08/17/17 03:20 08/18/17 06:05 08/17/17 08/18/17 08/19/17 05:59 05:59 05:59 Intake Total 700 1200 Output Total 900 1650 151 Balance -200 -450 -151 PT 17.0 SEC (12.0-15.0) H 08/05/17 18:30 INR 1.37 (0.83-1.16) H 08/05/17 18:30 - Physical Exam Constitutional: no apparent distress Eyes: PERRL Ears, Nose, Mouth, Throat: moist mucous membranes Cardiovascular: regular rate and rhythym Respiratory: no respiratory distress, clear to auscultation Gastrointestinal: normoactive bowel sounds, soft, non-tender abdomen Skin: warm Musculoskeletal: full muscle strength Neurologic: AAOx3 Psychiatric: interacting appropriately ICD10 Worksheet Patient Problems: Problems Problem Status Onset Altered mental status Acute Penetrating ulcer of aorta Acute Acute appendicitis Acute C. difficile enteritis Acute 11/03/13 Chest pain Acute Chronic Disease Mgmt/Transitional Care Acute Chronic obstructive pulmonary disease with acute exacerbation Acute Coronary artery disease Acute Cough Acute Elevated troponin Acute Exacerbation of asthma Acute MRSA (methicillin resistant Staphylococcus aureus) Acute 05/06/15
[2017-08-18] MEDS: PATCH REMOVAL 1 EA PATCH TD SCH (20:51)
[2017-08-18] MEDS: TAMSULOSIN HCL 0.4 MG CAP PO SCH (20:52)
[2017-08-19] MEDS: HYDROCODONE/APAP 10/325 TAB PO PRN ×5 (00:58→20:50)
[2017-08-19] MEDS: CLOTRIMAZOLE 10 MG TROCHE PO SCH ×5 (05:57→23:19)
[2017-08-19 06:22] LABS: PLATELET COUNT 232 10^3/uL (150-400)
[2017-08-19] MEDS: TIOTROPIUM INHALER 18 MCG/DOSE 5 DOSE/MDI IH SCH (08:10)
[2017-08-19] MEDS: FLUTICASONE/SALMETER 500/50MCG DISKUS IH SCH ×2 (08:47→21:28)
[2017-08-19] MEDS: VANCOMYCIN 1.25 GM in NS 250 ML IV SCH (09:19)
[2017-08-19] MEDS: LIDOCAINE 4%/MENTHOL 1% PATCH TD SCH (09:28)
[2017-08-19] MEDS: ENOXAPARIN 40 MG/0.4 ML SYR SC SCH (09:28)
[2017-08-19] MEDS: NEBIVOLOL HCL 5 MG TAB PO SCH ×2 (09:28→17:46)
[2017-08-19] MEDS: THIAMINE HCL 100 MG TAB PO SCH (09:30)
[2017-08-19] MEDS: PANTOPRAZOLE SODIUM 40 MG TAB PO SCH ×2 (09:30→20:49)
[2017-08-19] MEDS: LEVOTHYROXINE 112 MCG TAB PO SCH (09:30)
[2017-08-19] MEDS: FUROSEMIDE 20 MG TAB PO SCH (09:31)
[2017-08-19] MEDS: CYANO/VITAMIN B12 1000 MCG TAB PO SCH (09:31)
[2017-08-19] MEDS: SENNOSIDES/DOCUSATE SODIUM TAB PO SCH ×2 (09:50→20:56)
[2017-08-19] MEDS: ALBUTEROL 60 PUFFS/8 GM MDI IH PRN (10:11)
[2017-08-19] MEDS ORDERED: POTASSIUM CL 10 MEQ TAB PO ONE ×2 (10:53→19:19)
--- NOTE | 2017-08-19 15:36 | PCMIDPN ---
Assessment/Plan: Assessment: MRSA bacteremia. Initial blood cultures on 08/05/2017 growing MRSA. This culture was drawn just prior to endograft placement over thoracic aorta area thought to be ulcerative and slowly hemorrhaging. Repeat blood cultures drawn on 08/08/2017 are now also growing Gram-positive cocci in cultures. Initial blood culture on 08/05 was drawn prior to PICC placement. I am concerned that the initial aortic ulceration reflects a mycotic etiology and that the MRSA infection will be prove difficult to clear without resection. We will continue the vancomycin dose at 1.5 g IV q.12 hours. 08/17 cultures continue to grow MRSA despite ongoing vancomycin therapy. Agree with plans from Cardiology to transfer to the [facility]. Trough level slightly high at 20.9. Decrease vancomycin dose to 1 g IV q.12 hours. Plan: 1. Continue IV vancomycin now at 1.0 g IV q.12 hours. 2. Pursue transfer to the [facility]. Subjective: Patient is resting in a chair in his hospital room. He notes no change in symptoms. Still aches all over. States he is going little crazy from being in the hospital. Agrees with the decision to transfer him to [facility] for further care. Objective: Vancomycin # 13 Vital Signs Temp Pulse Resp BP Pulse Ox 36.6 C 87 24 H 114/70 91 L 08/19/17 12:00 08/19/17 12:00 08/19/17 12:00 08/19/17 12:00 08/19/17 12:00 Microbiology 08/15/17 14:30 Gram Stain - Final Back - Aspirate 08/14/17 04:10 Blood Culture - Final Blood MRSA 08/14/17 04:20 Blood Culture - Final Blood MRSA Laboratory Results 08/19/17 06:10 08/19/17 06:10 08/18/17 08/19/17 08/20/17 05:59 05:59 05:59 Intake Total 1200 250 Output Total 1650 501 200 Balance -450 -251 -200 - Physical Exam General Appearance: WD/WN, alert, no apparent distress, non-toxic Respiratory: lungs clear, normal breath sounds, No respiratory distress Cardiac/Chest: regular rate, rhythm, No tachycardia Skin: normal color, warm/dry, No rash Neuro/Psych: alert, normal mood/affect, oriented x 3 ICD10 Worksheet Patient Problems: Problems Problem Status Onset Altered mental status Acute Penetrating ulcer of aorta Acute Acute appendicitis Acute C. difficile enteritis Acute 11/03/13 Chest pain Acute Chronic Disease Mgmt/Transitional Care Acute Chronic obstructive pulmonary disease with acute exacerbation Acute Coronary artery disease Acute Cough Acute Elevated troponin Acute Exacerbation of asthma Acute MRSA (methicillin resistant Staphylococcus aureus) Acute 05/06/15
--- NOTE | 2017-08-19 15:42 | SOAPPROG ---
SOAP Progress Note Assessment/Plan: Assessment: Plan: 08/17/17 13:32 08/19/17 15 1.MRSA sepsis 2. Thoracic Medtronic stent graft He has had the blood cultures are positive within 24 hr despite 12 days of very aggressive sensitivity directed antibiotic therapy. The concern is that his Medtronic stent graft in the aorta is in fact infected. A in talking to infectious disease in the hospitalists our recommendation is transferred to the [facility] for further evaluation of his infection and possible resection of the graft. I have spoken with multiple people at the [facility] and the cardiac surgery service has agreed to take him. They will get Infectious Disease involved and medicine and make a determination of what they think is the best approach for him. I spent over 0.5 hr with him today on multiple visits discussing the options and making sure that this is acceptable to him and is. He is reluctant to go there but he is willing. Currently he is not in heart failure He is not having any acute coronary syndrome He is not having significant arrhythmias He has been accepted by the [facility] is a non emergent transfer and they are going to be in touch with us when a bed is available. Long-term I will be happy to take care of him. It is possible he is not going to have a long-term to need care but hopefully that is not the case all Subjective: He is very tired He is very weak He has no fevers or chills He has no nausea vomiting He tells me does not have chest pain. He has no new no new neurologic deficits. No Objective: Vital Signs Temp Pulse Resp BP Pulse Ox 36.6 C 87 24 H 114/70 91 L 08/19/17 12:00 08/19/17 12:00 08/19/17 12:00 08/19/17 12:00 08/19/17 12:00 Microbiology 08/15/17 14:30 Gram Stain - Final Back - Aspirate 08/14/17 04:10 Blood Culture - Final Blood MRSA 08/14/17 04:20 Blood Culture - Final Blood MRSA Laboratory Results 08/19/17 06:10 08/19/17 06:10 08/18/17 08/19/17 08/20/17 05:59 05:59 05:59 Intake Total 1200 250 Output Total 1650 501 200 Balance -450 -251 -200 PT 17.0 SEC (12.0-15.0) H 08/05/17 18:30 INR 1.37 (0.83-1.16) H 08/05/17 18:30 He is a Physical Exam - Physical Exam General Appearance: WD/WN (as history she is a assess due to), moderate distress (Her a velocity a a a a a a this is a yearly) Respiratory: rhonchi Cardiac/Chest: regular rate, rhythm Abdomen: non-tender, soft, No organomegaly Skin: pallor (A) Extremities: No calf tenderness ([place] for her) Neuro/Psych: alert, normal mood/affect ICD10 Worksheet Patient Problems: Problems Problem Status Onset Altered mental status Acute Penetrating ulcer of aorta Acute Acute appendicitis Acute C. difficile enteritis Acute 11/03/13 Chest pain Acute Chronic Disease Mgmt/Transitional Care Acute Chronic obstructive pulmonary disease with acute exacerbation Acute Coronary artery disease Acute Cough Acute Elevated troponin Acute Exacerbation of asthma Acute MRSA (methicillin resistant Staphylococcus aureus) Acute 05/06/15
--- NOTE | 2017-08-19 16:51 | ASMTCMCOM ---
CM Note CM Note Notes: 08/19/2017 Case Management Note Discussed pt during rounds this morning. Planning for EMTALA transport to [facility]. Called [facility] at [phone] to check status of transfer. There are currently no beds available at [facility]. Accepting MD is Dr. Manuel Mondragon, a cardiothoracic surgeon. [facility] to arrange transport. It is possible transfer could happen tonight. Notified Dr. Guzman. Case Management d/c poc: EMTALA transfer to [facility]. Date Signed: 08/19/2017 04:50 PM Electronically Signed By:Denise Mera RN
--- NOTE | 2017-08-19 19:28 | HOSPPROG ---
Hospitalist Progress Note Assessment/Plan: DIAGNOSES: # aortic ulcer, penetrating with contained mediastinal hematoma; MRSA bacteremia which is not clearing with antibiotics raises question of whether this was a mycotic ulcer * status post endovascular endograft placement by Dr. Arthur Li on 08/05, done 1 day after the 1st blood cultures were drawn and before antibiotics have been started as infection was unknown at that time * Blood count monitoring and CT scan show no evidence of further bleeding since and a graft placement # MRSA bacteremia * Concerned that the aortic lesion is the source of this bacteremia * Unable to clear with ongoing high-dose vancomycin here with numerous repeated positive cultures # recently identified vitamin B12 deficiency * Ongoing replacement therapy orally after initial per enteral doses # acute encephalopathy, multifactorial, with likely ongoing encephalopathy or dementing process; gradually improving nicely over the last 2 weeks of therapy here * B12 deficiency, infectious disease, overall malnutrition are likely the major factors; chronic pain medicine use and marijuana use may also be factors * Notably better with treatment of the infection, B12 deficiency and nutritional issues # acute blood loss anemia now stable after multiple transfusions * 4 units of packed red blood cells transfused perioperatively * Overall stable at this time but remains anemic * May be a multifactorial anemia given his nutritional issues # acute upper GI bleed, with multiple esophageal and gastric ulcers identified endoscopically, some with visible vessels which were clipped in both the esophagus and the stomach * Remains on PPI * So far no evidence of recurrent GI bleed clinically # failure to thrive/severe deconditioning and weakness/gait instability and high fall risk * infection, B12 deficiency, alcohol and marijuana, severe malnutrition, chronic pain, and multiple other factors involved * Is improving remarkably with treatment so far # severe protein calorie malnutrition, albumin 1.2 * Appetite finally beginning to improve and hopefully will be able to get his calorie and protein intake up quickly # 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 He in the past says he has had benefited from chiropractic, physical therapy, and tens unit; none of those available here but once he leaves here hopefully he can re-engage in those therapies; will be best to minimize narcotic use given all of his other multiple issues # chronic respiratory failure with chronic hypoxemia on chronic oxygen # chronic COPD stable at this time # chronic obstructive sleep apnea, intolerant of CPAP so has never used # hypothyroidism * TSH was in normal range in late July # history of alcohol abuse and daily marijuana use at home # diabetes mellitus type 2 * Initially with poor control, now with very good sugar control on current therapy and with treatment of other issues # CAD PLANS: * At this point as we are unable to clear his bacteremia it is felt that he will need removal of stent and likely given the nature of his aortic lesion removal of the lesion; the patient is not wanting to work further with our cardiovascular surgeon here so we are arranging for him to be transferred to the [facility]. A bed became available and [facility] [place] [facility] however unfortunate the patient is declining to go [facility] stating he wants to stay here and go tomorrow. I was away from the hospital after to the day shift when this all came to be and I did attempt to talk to the patient by phone be declines to talk to me on the phone and declined to tell the nurses his reasons for declining transfer this evening so that she could tell me. I did ask the nurse to inform the patient that this may jeopardize his chances of getting a bed at that hospital and getting the care that he needs and we have suggested he attempt to talk to Dr. French with whom he has good rapport. I reviewed his case in detail with Dr. Latrell French earlier today * Continue vancomycin and monitor levels closely. I reviewed with Dr. Curtis Estrella today and we did make a dose adjustment as he was a slightly high level * Continue B12 replacements * Continue nutritional support * Continue occupational physical therapy * Continue current management of diabetes SUBJECTIVE: Feels about the same as yesterday. 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: Sinus Exam: Very alert an oriented, engaging in conversation more than he was during my last visit with though still does not seem to be quite at 100% of where I would expect him to be, not confused however skin warm dry color ok resps not labored lungs clear BSs heart regular abd soft nondistended nontender, bowel sounds present limbs: edema is notably decreased now with his Lasix resumed, still some edema of arms iv site ok Laboratory data: Vanco level 20.9 CBC unremarkable other than at his anemia is stable Chem panel with a sodium 133 otherwise unremarkable Microbiology: Most recent blood cultures of August 19 still growing MRSA growing from all of his blood culture sets so far on 5 different dates here during this admission Objective: Vital Signs Temp Pulse Resp BP Pulse Ox 36.7 C 93 14 130/68 H 95 08/19/17 16:00 08/19/17 16:00 08/19/17 16:00 08/19/17 16:00 08/19/17 16:00 Microbiology 08/15/17 14:30 Gram Stain - Final Back - Aspirate 08/14/17 04:10 Blood Culture - Final Blood MRSA 08/14/17 04:20 Blood Culture - Final Blood MRSA Laboratory Results 08/19/17 06:10 08/19/17 18:00 08/18/17 08/19/17 08/20/17 06:59 06:59 06:59 Intake Total 1200 250 675 Output Total 1650 501 700 Balance -450 -251 -25 PT 17.0 SEC (12.0-15.0) H 08/05/17 18:30 INR 1.37 (0.83-1.16) H 08/05/17 18:30 - Time Spent With Patient Time Spent with Patient: greater than 35 minutes Time Spent with Patient: Greater than 35 minutes spent on this patients care, greater than 50% of time spent counseling, educating, and coordinating care regarding the above mentioned plan. ICD10 Worksheet Patient Problems: Problems Problem Status Onset Altered mental status Acute Penetrating ulcer of aorta Acute Acute appendicitis Acute C. difficile enteritis Acute 11/03/13 Chest pain Acute Chronic Disease Mgmt/Transitional Care Acute Chronic obstructive pulmonary disease with acute exacerbation Acute Coronary artery disease Acute Cough Acute Elevated troponin Acute Exacerbation of asthma Acute MRSA (methicillin resistant Staphylococcus aureus) Acute 05/06/15
[2017-08-19] MEDS: VANCOMYCIN HCL/NORMAL SALINE 250 ML IV SCH (20:48)
[2017-08-19] MEDS: TAMSULOSIN HCL 0.4 MG CAP PO SCH (20:49)
[2017-08-19] MEDS: PATCH REMOVAL 1 EA PATCH TD SCH (21:01)
[2017-08-20] MEDS: HYDROCODONE/APAP 10/325 TAB PO PRN ×4 (03:01→21:31)
[2017-08-20] MEDS ORDERED: HYDROCODONE/APAP 5/325 TAB PO ONE (03:25)
[2017-08-20] MEDS: CLOTRIMAZOLE 10 MG TROCHE PO SCH ×5 (05:51→21:32)
[2017-08-20] MEDS: TIOTROPIUM INHALER 18 MCG/DOSE 5 DOSE/MDI IH SCH (07:46)
[2017-08-20] MEDS: FLUTICASONE/SALMETER 500/50MCG DISKUS IH SCH ×2 (07:46→21:18)
[2017-08-20] MEDS: VANCOMYCIN HCL/NORMAL SALINE 250 ML IV SCH ×2 (07:57→21:33)
[2017-08-20] MEDS: LIDOCAINE 4%/MENTHOL 1% PATCH TD SCH (07:57)
[2017-08-20] MEDS: THIAMINE HCL 100 MG TAB PO SCH (08:06)
[2017-08-20] MEDS: ENOXAPARIN 40 MG/0.4 ML SYR SC SCH (08:06)
[2017-08-20] MEDS: LEVOTHYROXINE 112 MCG TAB PO SCH (08:06)
[2017-08-20] MEDS: FUROSEMIDE 20 MG TAB PO SCH (08:09)
[2017-08-20] MEDS: CYANO/VITAMIN B12 1000 MCG TAB PO SCH (08:09)
[2017-08-20] MEDS: PANTOPRAZOLE SODIUM 40 MG TAB PO SCH ×2 (08:09→21:32)
[2017-08-20] MEDS: NEBIVOLOL HCL 5 MG TAB PO SCH ×2 (08:11→16:40)
[2017-08-20] MEDS: SENNOSIDES/DOCUSATE SODIUM TAB PO SCH ×2 (08:12→21:31)
[2017-08-20] MEDS ORDERED: POTASSIUM CL 10 MEQ TAB PO ONE ×3 (08:15→19:40)
[2017-08-20] MEDS: ALBUTEROL 60 PUFFS/8 GM MDI IH PRN (08:17)
[2017-08-20] MEDS: guaiFENesin 600 MG TAB.ER PO PRN (13:48)
--- NOTE | 2017-08-20 17:38 | PDCONSULT ---
Completions Manager Note: 72 year old male admitted to the hospital with MRSA sepsis. Patient personally contacted our office for evaluation of his hoarseness. He is a well known patient to our office and has been treated for chronic laryngitis many times. He is currently on antibiotics for his MRSA sepsis. He notes hoarseness over the past several weeks. He may be transferred to for cardiac surgery. He denies any new dysphagia. He feels like he needs to drink liquids slower right now. No pain. O: Weak, breathy voice OP normal Scope through right nares reveals BOT to be normal. Epiglottis normal. Arytenoids are normal. He has a small right sided TVC polyp. Left TVC is weak. No signs of infection at this time. A/P: 72 year old male seen at the request of himself for ongoing hoarseness. Exam reveals a right-sided TVC polyp with weakness to the left TVC. I discussed , thatat this time, treatment from ENT perspective would include corticosteroids , but that would be contraindicated with his current situation. At this point, ENT recommendation would be to follow-up with our clinic as an outpatient. No treatment recommendations at this point from ENT perspective. He will call once he is stable and as an outpatient. Discussed with patient and he understands. Darrell Hernandez PA-C
--- NOTE | 2017-08-20 18:26 | PCMIDPN ---
Assessment/Plan: Assessment/Plan: * Persistent, high-grade MRSA bacteremia: Given persistent bacteremia, concerned that aortic ulceration may be of mycotic etiology ultimately which may require resection/removal of endo graft. Will repeat blood cultures in a.m. To assess for clearance. Repeat vancomycin trough in a.m. After adjustment of dosing yesterday. Ultimately plans for transfer of care to [place] once bed available for additional cardiothoracic surgery evaluation. 08/20/17 18:22 Subjective: Patient complains of fatigue and hoarse voice. Awaiting transfer to [facility]. Objective: Vital Signs Temp Pulse Resp BP Pulse Ox 37.2 C 91 14 120/64 92 08/20/17 15:06 08/20/17 15:06 08/20/17 15:06 08/20/17 15:06 08/20/17 15:06 Microbiology 08/15/17 14:30 Gram Stain - Final Back - Aspirate Laboratory Results 08/19/17 06:10 08/20/17 05:47 08/19/17 08/20/17 08/21/17 05:59 05:59 05:59 Intake Total 831 146 6632 Output Total 501 820 900 Balance -251 -45 340 Vancomycin # 14 Blood cultures 08/17/2017 MRSA Back aspirate culture no growth - Physical Exam General Appearance: alert, no apparent distress EENT: No scleral icterus, No conjunctival petechiae Respiratory: lungs clear, No respiratory distress Cardiac/Chest: regular rate, rhythm, systolic murmur (2/6 left upper sternal border) Extremities: No inflammation Abdomen: non-tender, No distended Skin: No embolic lesions ICD10 Worksheet Patient Problems: Problems Problem Status Onset Altered mental status Acute Penetrating ulcer of aorta Acute Acute appendicitis Acute C. difficile enteritis Acute 11/03/13 Chest pain Acute Chronic Disease Mgmt/Transitional Care Acute Chronic obstructive pulmonary disease with acute exacerbation Acute Coronary artery disease Acute Cough Acute Elevated troponin Acute Exacerbation of asthma Acute MRSA (methicillin resistant Staphylococcus aureus) Acute 05/06/15
--- NOTE | 2017-08-20 19:33 | HOSPPROG ---
Hospitalist Progress Note Assessment/Plan: DIAGNOSES: # aortic ulcer, penetrating with small but enlarging contained mediastinal hematoma * status post endovascular endograft placement by Dr. Arthur Li on 08/05 * Blood count monitoring and CT scan show no evidence of further bleeding since and a graft placement # MRSA bacteremia which is not clearing with antibiotics despite documented adequate vancomycin levels * status post endovascular endograft placement, done in the absence of fever before known growth of Staph in cultures, but certainly with infection was present at the time of the procedure * Vanc level at 20.9 today # recently identified vitamin B12 deficiency * Ongoing replacement therapy orally after initial parenteral doses # acute encephalopathy, multifactorial; * B12 deficiency, infectious disease, overall malnutrition are likely the major factors; chronic pain medicine use and marijuana use may also be factors * Notably better with treatment of the infection, B12 deficiency and nutritional issues # acute blood loss anemia now stable after multiple transfusions - this is due to his bleeding ulcers * 4 units of packed red blood cells transfused perioperatively * Overall stable at this time but remains anemic * May be a multifactorial anemia given his nutritional issues # acute upper GI bleed, with multiple esophageal and gastric ulcers identified endoscopically, some with visible vessels which were clipped in both the esophagus and the stomach * Remains on PPI * So far no evidence of recurrent GI bleed clinically # failure to thrive/severe deconditioning and weakness/gait instability and high fall risk * infection, B12 deficiency, alcohol and marijuana, severe malnutrition, chronic pain, and multiple other factors involved * Is improving somewhat with treatment so far # severe protein calorie malnutrition, albumin 1.2 * Appetite now approaching normal and hopefully will be able to get his calorie and protein intake up quickly # 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 He in the past says he has had benefited from chiropractic, physical therapy, and tens unit; none of those available here but once he leaves here hopefully he can re-engage in those therapies; # chronic respiratory failure with chronic hypoxemia on chronic oxygen # chronic COPD stable at this time # chronic obstructive sleep apnea, intolerant of CPAP so has never used # hypothyroidism on treatment * TSH was in normal range in late July # history of alcohol abuse and daily marijuana use at home # diabetes mellitus type 2 * Initially with poor control, now with very good sugar control on current therapy and with treatment of other issues # CAD appear stable at this time PLANS: * At this point as we are unable to clear his bacteremia it is felt that he will need removal of stent and likely given the nature of his aortic lesion removal of the lesion; the patient is not wanting to work further with our cardiovascular surgeon here so we are arranging for him to be transferred to the [facility]. A bed became available and [facility] [place] [facility] however unfortunate the patient is declining to go [facility] stating he wants to stay here and go tomorrow. I was away from the hospital after to the day shift when this all came to be and I did attempt to talk to the patient by phone be declines to talk to me on the phone and declined to tell the nurses his reasons for declining transfer this evening so that she could tell me. I did ask the nurse to inform the patient that this may jeopardize his chances of getting a bed at that hospital and getting the care that he needs and we have suggested he attempt to talk to Dr. French with whom he has good rapport. I reviewed his case in detail with Dr. Latrell French earlier today * Continue vancomycin and monitor levels closely. I reviewed with Dr. 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: Sinus Exam: Very alert an oriented, engaging in conversation more than he was during my last visit with though still does not seem to be quite at 100% of where I would expect him to be, not confused however skin warm dry color ok resps not labored lungs clear BSs heart regular abd soft nondistended nontender, bowel sounds present limbs: edema is notably decreased now with his Lasix resumed, still some edema of arms iv site ok Laboratory data: Microbiology: Most recent blood cultures of August 19 still growing MRSA growing from all of his blood culture sets so far on 5 different dates here during this admission Objective: Vital Signs Temp Pulse Resp BP Pulse Ox 37.2 C 91 14 120/64 92 08/20/17 15:06 08/20/17 15:06 08/20/17 15:06 08/20/17 15:06 08/20/17 15:06 Microbiology 08/15/17 14:30 Gram Stain - Final Back - Aspirate Laboratory Results 08/19/17 06:10 08/20/17 18:15 08/19/17 08/20/17 08/21/17 06:59 06:59 06:59 Intake Total 250 1025 990 Output Total 501 820 900 Balance -251 205 90 PT 17.0 SEC (12.0-15.0) H 08/05/17 18:30 INR 1.37 (0.83-1.16) H 08/05/17 18:30 ICD10 Worksheet Patient Problems: Problems Problem Status Onset Altered mental status Acute Penetrating ulcer of aorta Acute Acute appendicitis Acute C. difficile enteritis Acute 11/03/13 Chest pain Acute Chronic Disease Mgmt/Transitional Care Acute Chronic obstructive pulmonary disease with acute exacerbation Acute Coronary artery disease Acute Cough Acute Elevated troponin Acute Exacerbation of asthma Acute MRSA (methicillin resistant Staphylococcus aureus) Acute 05/06/15
[2017-08-20] MEDS: TAMSULOSIN HCL 0.4 MG CAP PO SCH (21:32)
[2017-08-20] MEDS: PATCH REMOVAL 1 EA PATCH TD SCH (21:34)
[2017-08-20] MEDS: IPRATROPIUM/ALBUTEROL 3 ML DEYVIAL IH PRN (23:52)
[2017-08-21] MEDS: HYDROCODONE/APAP 10/325 TAB PO PRN ×5 (02:44→20:39)
[2017-08-21] MEDS: CLOTRIMAZOLE 10 MG TROCHE PO SCH ×5 (06:40→20:38)
[2017-08-21] MEDS: CEPACOL LOZENGE PO PRN (06:50)
[2017-08-21] MEDS ORDERED: POTASSIUM CL 10 MEQ TAB PO ONE ×2 (08:08→20:44)
[2017-08-21] MEDS: FUROSEMIDE 20 MG TAB PO SCH (08:41)
[2017-08-21] MEDS: PANTOPRAZOLE SODIUM 40 MG TAB PO SCH ×2 (08:41→20:38)
[2017-08-21] MEDS: VANCOMYCIN HCL/NORMAL SALINE 250 ML IV SCH ×2 (08:41→20:08)
[2017-08-21] MEDS: THIAMINE HCL 100 MG TAB PO SCH (08:41)
[2017-08-21] MEDS: CYANO/VITAMIN B12 1000 MCG TAB PO SCH (08:42)
[2017-08-21] MEDS: NEBIVOLOL HCL 5 MG TAB PO SCH ×2 (08:42→16:14)
[2017-08-21] MEDS: SENNOSIDES/DOCUSATE SODIUM TAB PO SCH ×3 (08:42→20:39)
[2017-08-21] MEDS: LEVOTHYROXINE 112 MCG TAB PO SCH (08:42)
[2017-08-21] MEDS: ENOXAPARIN 40 MG/0.4 ML SYR SC SCH (09:03)
[2017-08-21] MEDS: LIDOCAINE 4%/MENTHOL 1% PATCH TD SCH (10:12)
[2017-08-21] MEDS: FLUTICASONE/SALMETER 500/50MCG DISKUS IH SCH ×2 (11:01→20:52)
[2017-08-21] MEDS: TIOTROPIUM INHALER 18 MCG/DOSE 5 DOSE/MDI IH SCH (11:02)
--- NOTE | 2017-08-21 15:21 | ASMTCMCOM ---
CM Note CM Note Notes: Pts case discussed in morning rounds. CM called the transfer line at [place] and a bed is not available at this time. The coordinator at [place] will notify CM once a bed becomes available. CM to follow. Plan: [facility] Date Signed: 08/21/2017 03:21 PM Electronically Signed By:SILVERIO Gilliam
[2017-08-21] MEDS ORDERED: CALCIUM GLUCONATE 50 ML IV ONE (16:27)
--- NOTE | 2017-08-21 19:20 | HOSPPROG ---
Hospitalist Progress Note Assessment/Plan: DIAGNOSES: # aortic ulcer, penetrating with small but enlarging contained mediastinal hematoma * status post endovascular endograft placement by Dr. Arthur Li on 08/05 * Blood count monitoring and CT scan show no evidence of further bleeding since and a graft placement # MRSA bacteremia which is not clearing with antibiotics despite documented adequate vancomycin levels * status post endovascular endograft placement, done in the absence of fever before known growth of Staph in cultures, but certainly with infection was present at the time of the procedure * Vanc level at 16 today # recently identified vitamin B12 deficiency * Ongoing replacement therapy orally after initial parenteral doses # acute encephalopathy, multifactorial; * B12 deficiency, infectious disease, overall malnutrition are likely the major factors; chronic pain medicine use and marijuana use may also be factors * Notably better with treatment of the infection, B12 deficiency and nutritional issues # acute blood loss anemia now stable after multiple transfusions - this is due to his bleeding ulcers * 4 units of packed red blood cells transfused perioperatively * Overall stable at this time but remains anemic * May be a multifactorial anemia given his nutritional issues # acute upper GI bleed, with multiple esophageal and gastric ulcers identified endoscopically, some with visible vessels which were clipped in both the esophagus and the stomach * Remains on PPI * So far no evidence of recurrent GI bleed clinically # failure to thrive/severe deconditioning and weakness/gait instability and high fall risk * infection, B12 deficiency, alcohol and marijuana, severe malnutrition, chronic pain, and multiple other factors involved * Is improving somewhat with treatment so far # severe protein calorie malnutrition, albumin 1.2 * Appetite now approaching normal and hopefully will be able to get his calorie and protein intake up quickly # 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 He in the past says he has had benefited from chiropractic, physical therapy, and tens unit; none of those available here but once he leaves here hopefully he can re-engage in those therapies; # chronic respiratory failure with chronic hypoxemia on chronic oxygen # chronic COPD stable at this time # chronic obstructive sleep apnea, intolerant of CPAP so has never used # hypothyroidism on treatment * TSH was in normal range in late July # history of alcohol abuse and daily marijuana use at home # diabetes mellitus type 2 * Initially with poor control, now with very good sugar control on current therapy and with treatment of other issues # CAD PLANS: * Still waiting here from [facility] again about bed availability for transfer there. * Continue vancomycin at current dose and monitor levels closely. 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 skin warm dry color ok resps not labored at rest in bed lungs minimal rhonchi at bases, otherwise clear BSs heart regular abd soft nondistended nontender, bowel sounds present limbs edema essentially resolved at this time PICC site ok Laboratory data: Vanco trough level 16 Potassium 3.4 Microbiology: Most recent blood cultures of August 19 still growing MRSA growing from all of his blood culture sets so far on 5 different dates here during this admission Objective: Vital Signs Temp Pulse Resp BP Pulse Ox 36.8 C 84 20 144/96 H 92 08/21/17 16:11 08/21/17 16:11 08/21/17 16:11 08/21/17 16:11 08/21/17 16:11 Microbiology 08/15/17 14:30 Gram Stain - Final Back - Aspirate Laboratory Results 08/19/17 06:10 08/21/17 17:55 08/20/17 08/21/17 08/22/17 06:59 06:59 06:59 Intake Total 1025 1265 900 Output Total 820 1450 900 Balance 205 -185 0 PT 17.0 SEC (12.0-15.0) H 08/05/17 18:30 INR 1.37 (0.83-1.16) H 08/05/17 18:30 - Time Spent With Patient Time Spent with Patient: greater than 35 minutes Time Spent with Patient: Greater than 35 minutes spent on this patients care, greater than 50% of time spent counseling, educating, and coordinating care regarding the above mentioned plan. ICD10 Worksheet Patient Problems: Problems Problem Status Onset Altered mental status Acute Penetrating ulcer of aorta Acute Acute appendicitis Acute C. difficile enteritis Acute 11/03/13 Chest pain Acute Chronic Disease Mgmt/Transitional Care Acute Chronic obstructive pulmonary disease with acute exacerbation Acute Coronary artery disease Acute Cough Acute Elevated troponin Acute Exacerbation of asthma Acute MRSA (methicillin resistant Staphylococcus aureus) Acute 05/06/15
[2017-08-21] MEDS: TAMSULOSIN HCL 0.4 MG CAP PO SCH (20:39)
[2017-08-21] MEDS: ALBUTEROL 60 PUFFS/8 GM MDI IH PRN (20:50)
[2017-08-21] MEDS: PATCH REMOVAL 1 EA PATCH TD SCH (21:04)
[2017-08-22] MEDS: HYDROCODONE/APAP 10/325 TAB PO PRN ×4 (03:01→16:27)
[2017-08-22] MEDS: IPRATROPIUM/ALBUTEROL 3 ML DEYVIAL IH PRN (03:21)
[2017-08-22] MEDS: CLOTRIMAZOLE 10 MG TROCHE PO SCH ×3 (06:34→08:43)
[2017-08-22] MEDS: VANCOMYCIN HCL/NORMAL SALINE 250 ML IV SCH (08:27)
[2017-08-22] MEDS: SENNOSIDES/DOCUSATE SODIUM TAB PO SCH (08:27)
[2017-08-22] MEDS: LEVOTHYROXINE 112 MCG TAB PO SCH (08:27)
[2017-08-22] MEDS: CYANO/VITAMIN B12 1000 MCG TAB PO SCH (08:27)
[2017-08-22] MEDS: NEBIVOLOL HCL 5 MG TAB PO SCH ×2 (08:27→16:28)
[2017-08-22] MEDS: ENOXAPARIN 40 MG/0.4 ML SYR SC SCH (08:27)
[2017-08-22] MEDS: THIAMINE HCL 100 MG TAB PO SCH (08:27)
[2017-08-22] MEDS: PANTOPRAZOLE SODIUM 40 MG TAB PO SCH (08:27)
[2017-08-22] MEDS: LIDOCAINE 4%/MENTHOL 1% PATCH TD SCH ×2 (08:28→09:08)
[2017-08-22] MEDS: FUROSEMIDE 20 MG TAB PO SCH (08:30)
[2017-08-22] MEDS ORDERED: BECLOMETHASONE QVAR 80 REDIHALER 120 INH/10.6 GM MDI IH SCH (09:00)
[2017-08-22] MEDS ORDERED: POTASSIUM CL 10 MEQ TAB PO ONE (09:32)
--- NOTE | 2017-08-22 11:14 | PCMIDPN ---
Assessment/Plan: 1. 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 Repeat blood cultures are negative at 24 hrs, and cultures prior to that showed a decreasing bacterial burden with only 1/4 cultures positive. He will need a minimum of 6 weeks of intravenous vancomycin, tentative stop date October 02, with chronic suppression with something like doxycycline thereafter for life. After discussion with the patient's glass curvature gauger, he does not feel the patient will be compliant with chronic suppression, and the infected graft should come out if technically feasible. Patient states he will not refuse transfer, and [facility]. Continue vancomycin at present dose; will need trough repeated in the next 48 hr. Serum creatinine stable. No evidence of adverse drug reaction associated with vancomycin. Of note, syphilis IgG negative, ruling out syphilitic aortitis. Clinical suspicion high for mycotic aneurysm as cause for disruption in thoracic intima. 2. Oral candidiasis: Continue clotrimazole troches. Resolved. Over 25 min spent with this patient. 08/22/17 11:19 Subjective: Went in the room with Dr. Peter French, who knows the patient well. Dr. French explained to the patient that he cannot refuse transfer moving forward if he wants to get additional help at [facility]. Patient expressed understanding, and is willing to be transferred to [facility] when a bed is open. He is concerned that he will not get his narcotics at [facility]. This is the reason he has refused to previous transfers. Incredulously, the patient's bacteremia seems to have cleared! Objective: Vancomycin 1 g IV q.12 hours day 16 No fevers Vital Signs Temp Pulse Resp BP Pulse Ox 36.6 C 82 18 127/71 H 95 08/22/17 10:55 08/22/17 10:55 08/22/17 10:55 08/22/17 10:55 08/22/17 10:55 Microbiology 08/17/17 03:58 Blood Culture - Final Blood 08/17/17 03:20 Blood Culture - Final Blood MRSA 08/15/17 14:30 Gram Stain - Final Back - Aspirate Laboratory Results 08/19/17 06:10 08/22/17 06:20 08/21/17 08/22/17 08/23/17 05:59 05:59 05:59 Intake Total 1515 1100 Output Total 1450 1000 350 Balance 65 100 -350 Blood cultures August 1703/07 bottles MRSA August 21 blood cultures x2 no growth so far August 15 back aspirate did not grow anything - Physical Exam General Appearance: no apparent distress, obese, other (dysphonic) EENT: pharynx normal, No thrush Respiratory: lungs clear Cardiac/Chest: other (Distant heart sounds) Extremities: other (PICC line right upper extremity looks okay) Abdomen: non-tender, soft Skin: No rash, No embolic lesions Neuro/Psych: oriented x 3 ICD10 Worksheet Patient Problems: Problems Problem Status Onset Altered mental status Acute Penetrating ulcer of aorta Acute Acute appendicitis Acute C. difficile enteritis Acute 11/03/13 Chest pain Acute Chronic Disease Mgmt/Transitional Care Acute Chronic obstructive pulmonary disease with acute exacerbation Acute Coronary artery disease Acute Cough Acute Elevated troponin Acute Exacerbation of asthma Acute MRSA (methicillin resistant Staphylococcus aureus) Acute 05/06/15
--- NOTE | 2017-08-22 16:06 | ASMTCMCOM ---
CM Note CM Note Notes: Pts case discussed in tx rounds. CM called the transfer line at [facility] on two occasions and they do not have a bed available for pt. CM to follow. Plan: [facility] Date Signed: 08/22/2017 04:05 PM Electronically Signed By:SILVERIO Gilliam
[2017-08-22 16:10] VITALS: BP 145/69
--- NOTE | 2017-08-22 16:41 | ASMTDCNOTE ---
Case Management Discharge Discharge Order Complete? Answers: Yes Patient to Obtain Answers: via Family Medications Transportation Arranged Answers: [facility] will Pick (Date 08/22/2017 07:30 PM & Time) EMTALA Complete Answers: Yes Case Management Transport Answers: Yes Form Complete Faxed Final Orders Answers: Yes Agency/Facility Transfer Answers: Yes Report Printed & Faxed to Receiving Agency Family Notified Answers: No Discharge Comments Notes: CM notified that [facility] has a bed available for pt tonight. EMTLA completed. A copy of pts chart has been printed and will go w/ pt during transport. CM completed PCS form. CM available for changes. Plan: [facility] Date Signed: 08/22/2017 04:40 PM Electronically Signed By:SILVERIO Gilliam
--- NOTE | 2017-08-22 18:21 | PDDCSUM ---
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 SLEEP APNEA, STABLE -DIABETES MELLITUS TYPE 2, STABLE -CHRONIC BACK PAIN AND HEADACHE PAINS ON CHRONIC DAILY PRESCRIBED NARCOTIC PAIN MEDICINES FOR THESE -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, OR REMOVED SURGICALLY AT [facility], QUESTION OF 2ND MALIGNANCY IN THE SAME SPECIMEN PER PATIENT -HISTORY OF CHRONIC ALCOHOL ABUSE AND MARIJUANA USE PROCEDURES: CT SCAN OF HEAD CT ANGIO OF HEAD AND NECK CT ANGIO OF CHEST AND ABDOMEN PICC LINE INSERTION, SUBSEQUENT REMOVAL OF THAT ORIGINAL PICC LINE REPLACEMENT WITH 2ND PICC LINE MRI OF LUMBAR SPINE CT-GUIDED DRAINAGE PROCEDURE FROM LUMBAR SPINE PERCUTANEOUS PLACEMENT OF ENDOGRAFT TO DESCENDING AORTA, 28 X 100 MED CHRONIC VALIENT ESOPHAGOGASTRODUODENOSCOPY WITH CLIPPING OF VISIBLE VESSELS IN MULTIPLE ULCERS TRANSFUSION 4 UNITS OF PACKED RED BLOOD CELLS HOSPITAL COURSE SUMMARY: This patient was transferred to this hospital from a nursing facility because of worsening confusion after previous admission for confusion and failure to thrive. The diagnoses in the prior hospitalization included new diagnosis of vitamin B12 deficiency, acute encephalopathy, weakness gait instability, ongoing chronic back pain among others. There were no fevers or signs of infection during that hospital admission. He was transferred from nursing facility after some improvement for ongoing physical therapy. He returned to this hospital for this admission, 1 day later with altered alertness and worsening confusion. As initial part of his assessment in the ER there was some question of whether he might be having stroke. On assessment there was no evidence of stroke, but a CT angiogram of the head neck was done as part of the initial stroke assessment with a finding of a penetrating aortic ulcer with fluid collection adjacent in the mediastinum. Initially this did not appear to have acute bleeding but on reassessment there appeared to be more fluid with change in the appearance of fluid suggesting active bleeding. Is therefore elected to take the patient to the operating room where Dr. Li placed an endograft percutaneously. There has not been any evidence of recurrent bleeding since that time. However remarkably the patient was continuing to have fluctuating levels of alertness and confusion early on in the hospital stay and on the day of the endograft procedure there was a decision to draw blood cultures to be sure there was no infection. There had been no fever or elevated white blood cell count. One day later these cultures grew MRSA from all 4 bottles. The patient was started on vancomycin but despite ongoing high- dose vancomycin levels blood cultures have not been clearing. The endograft procedure was on August 05, blood cultures became positive August 06 and vancomycin was started on August 06. As recently as August 07 there is still a growth of MRSA and blood cultures. Throughout all this the patient has not had fevers, has showed no signs of sepsis, and there have been no signs of definite septic embolic phenomena. However it is remarkable that the patient has significant chronic back pain is continued to complain of ongoing back pain here. MRI had been done of the spine during this hospital stay and showed a 1 cm fluid collection adjacent to L4-5. This was aspirated under CT guidance and did have a predominance of neutrophils in the fluid but Gram stain was negative and cultures have been negative from this fluid. It is uncertain whether this was actually infected or not but the patient was already on antibiotics. Vancomycin dosing has been managed by the infectious disease physicians, with a goal of Vanco levels of 10-15 initially but changed to a range of 15-21 as we were not finding clearing of the bacteremia. Vanco levels have been at least 14.7 since August 13, most recently at 16.3 on August 21. Current Vanco dose is 1 g q.12 hours intravenously Due to failure to clear MRSA out of the blood with an endograft in place over a penetrating aortic ulcer, is concerned that we would not be able to eradicate this infection with antibiotics alone and that the endograft should be removed 1 where another, however with still the requirement to protect him from this aortic ulcer. The patient is not felt to be entirely reliable in terms of the likelihood of him taking antibiotics for the rest of his life. Therefore trying to suppress this with ongoing oral antibiotics indefinitely did not seem like a very viable option. Is elected to seek further care for management at the [facility] and the patient has now been accepted by Dr. Meraz at [facility]. A bed is available and the patient is to be transported there on this date In addition to the above the patient did have acute upper GI bleeding with large melenic stools past during his endograft placement in the operating room. He was studied with upper endoscopy showing multiple ulcers with evidence of acute bleeding and multiple clips were placed on ulcers. He has been placed on proton pump inhibitor since then. He did require 4 units of packed red blood cells from this episode, but there is no evidence review recurrent bleeding since the day of the a initial event. In addition the patient has had ongoing issues with encephalopathy, generalized weakness, gait instability, malnutrition, chronic back pain requiring his usual chronic prescribed narcotics, and chronic oxygen requiring respiratory failure. Regarding that cephalopathy he was recently and the previous hospital admission diagnosed with vitamin B12 deficiency and has been on B12 replacement since then. Along with improvement in overall nutrition and correction of infection etc the patient's mentation is probably fairly close to his baseline at this time. Regarding his generalized weakness and gait instability, he is improving with ongoing physical therapy but not necessarily entirely safe on his feet yet. He is regaining more normal nutritional status which appears to be helping this. Regarding his chronic back pain, he has had this for many years due to multiple injuries. He has been on chronic prescribed narcotics for many years. We have continued his usual narcotic doses here. We have in addition added some muscle relaxer and intermittent Lidoderm patches and these seem to have helped as well. He does have chronic COPD and this is stable here , using inhaled bronchodilators and inhaled long-acting steroid bronchodilator. The patient also has known sleep apnea but has never tolerated CPAP in the past and never used it and has declined here. He also does have diabetes mellitus and this has been in good control here overall. PENDING TEST RESULTS: MOST RECENT BLOOD CULTURE STILL PENDING FOLLOW-UP PLAN: Patient is being transferred at this time to the [facility] in [place] will be under the care of Dr. Meraz for consideration of removal of endograft and/or surgical management of suspected infected endograft of descending aorta. Ongoing vancomycin therapy Greater than 35 minutes bedside and care coordination time today
--- NOTE | 2017-08-23 09:05 | ASDISCHSUM ---
Discharge Information Plan Status:Acute Transfer Medically Cleared to Leave:08/23/2017 Discharge Date:08/22/2017 07:57 PM D/C Disposition:[facility] Facility ADT D/C Disposition:[facility] Projected Discharge Date:08/23/2017 11:00 AM Transportation at D/C: Discharge Delay Reason: Follow-Up Date:08/23/2017 11:00 AM Discharge Slot: Final Diagnosis:AMS Placement Information Referral Type:*Assisted/SNF Referral ID:[id number] Provider Name: Address 1: Phone Number: Address 2: Fax Number: City: Selection Factors: State: Patient Contact Information Contact Name:JASON Relationship:Friend Address:[address] Work Phone: Shashank:LARISSA Sweeney Phone: [facility]/Zip Code:[place] [address] Email: Financial Information Financial Class:Medicare Primary Plan Desc:MEDICARE INPATIENT Primary Plan Number:[id number] Secondary Plan Desc:AARP/MDR SUPPLEMENT Secondary Plan Number:[id number] Assessment Information [facility] CM Progress Note CM Note CM Note Notes: Pt presented to the ED from [facility] as a Stroke Alert for AMS, left-sided weakness and left-sided facial droop. Pt was just discharged from [facility] yesterday to . 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 Pt's friend, Tommie Stroud ([phone]) is at bedside in the ED. Tommie lives in [place] but is here to help pt out as much as possible. Tommie said he would contact pt's other friends, Nabil Wren ([phone]) and Tiarra Jorge ([phone], h:[phone]). Tommie has pt's CPAP machine and will bring it to pt's room; even though pt has not wanted to wear CPAP in the past. Pt's PCP is Dr Penelope Sue at [facility] ([phone]) but Dr Sue is on leave through September; pt was to follow up with PCP for repeat labs and chronic pain issues. Pt was also to followup with Dr Peoples next week re: recent abdominal surgery, and follow-up with Dr French on 08/06/17 re:pt's CAD. Pt states he has a housecleaning services that come every 2 weeks but otherwise doesn't receive other home help services. Exact DC needs unknown. CM to follow. Date Signed: 08/03/2017 03:51 PM Electronically Signed By:Paula Weeks RN LACE LACE Comorbidities - select Answers: Chronic pulmonary disease all that apply Coronary Artery Disease Opioid dependence / Chronic pain Previous myocardial infarction Other Notes: failure to thrive, deconditioning, re cent bowel resection w/appendiceal carcinoma and received intraperitoneal chemo # of Emergency department Answers: 3-4 visits in the last 6 months Social determinants Answers: History of substance abuse (ETOH, street drugs, prescription drugs, etc.) Score: 16 Date Signed: 08/03/2017 03:25 PM Electronically Signed By:Paula Weeks RN [facility] CM Progress Note CM Note CM Note Notes: Patient reviewed and discussed in rounds he was readmitted from [facility] after discharge on Saturday. Per CT exam a penetrating aortic arch ulcer is identified. [facility] perform [facility]ograft tomorrow. Referral to [facility] via allscripts for anticipated dc Saturday or Saturday CM to follow. Plan: Return to [facility] when medically stable. Date Signed: 08/04/2017 03:56 PM Electronically Signed By:Khushi Eli RN [facility] CM Progress Note CM Note CM Note Notes: Assisted patient and friend with MPOA paperwork. Patient would like Justyn Stroud [phone] to be his MPOA. Paperwork in the chart. He would like to return to [facility] for Rehab on discharge. Date Signed: 08/06/2017 02:53 PM Electronically Signed By:Apolonia Altamirano LCSW [facility] CM Progress Note CM Note CM Note Notes: CM spoke to NICOLA Walls regarding d/c POC. The plan remains the same. Pt will d/c to [facility] when medically stable. Updates sent to [facility]. CM to follow. Plan: [facility] Date Signed: 08/09/2017 11:59 AM Electronically Signed By:SILVERIO Gilliam [facility] CM Progress Note CM Note CM Note Notes: 08/12/2017 Case Management Note Pt continues on IV antibiotics, had PICC replaced over the weekend. Faxed updates to [facility]. Case Management d/c poc: return to [facility] Case Management to follow. Date Signed: 08/12/2017 12:29 PM Electronically Signed By:Denise Mera RN [facility] CM Progress Note CM Note CM Note Notes: Pts case discussed in morning rounds. Updates sent to [facility]. CM spoke to Jannette at [facility] and she is saving him a bed. CM to follow. Plan: [facility] Date Signed: 08/15/2017 12:44 PM Electronically Signed By:SILVERIO Gilliam [facility] Progress Note CM Note CM Note Notes: Pts case discussed in morning rounds. Pts H&H dropped. CTA and blood culture will be repeated. If blood cultures are positive pt may need to be transferred to [facility] for an entire aorta replacement. Needs are TBD at this time. CM to follow. Plan: TBD Date Signed: 08/16/2017 03:21 PM Electronically Signed By:SILVERIO Gilliam [facility] Progress Note CM Note CM Note Notes: 08/19/2017 Case Management Note Discussed pt during rounds this morning. Planning for EMTALA transport to [facility]. Called [facility] at [phone] to check status of transfer. There are currently no beds available at [facility]. Accepting MD is Dr. Manuel Mondragon, a cardiothoracic surgeon. [facility] to arrange transport. It is possible transfer could happen tonight. Notified Dr. Guzman. Case Management d/c poc: EMTALA transfer to [facility]. Date Signed: 08/19/2017 04:50 PM Electronically Signed By:Denise Mera RN [facility] CM Progress Note CM Note CM Note Notes: Pts case discussed in morning rounds. CM called the transfer line at [place] and a bed is not available at this time. The coordinator at [place] will notify CM once a bed becomes available. CM to follow. Plan: [place] transfer Date Signed: 08/21/2017 03:21 PM Electronically Signed By:SILVERIO Gilliam [facility] Progress Note CM Note CM Note Notes: Pts case discussed in tx rounds. CM called the transfer line at [place] on two occasions and they do not have a bed available for pt. CM to follow. Plan: [place] transfer Date Signed: 08/22/2017 04:05 PM Electronically Signed By:SILVERIO Gilliam Case Management Discharge Plan Note Case Management Discharge Discharge Order Complete? Answers: Yes Patient to Obtain Answers: via Family Medications Transportation Arranged Answers: [facility] will Pick (Date 08/22/2017 07:30 PM & Time) EMTALA Complete Answers: Yes Case Management Transport Answers: Yes Form Complete Faxed Final Orders Answers: Yes Agency/Facility Transfer Answers: Yes Report Printed & Faxed to Receiving Agency Family Notified Answers: No Discharge Comments Notes: CM notified that [facility] has a bed available for pt tonight. EMTLA completed. A copy of pts chart has been printed and will go w/ pt during transport. CM completed PCS form. CM available for changes. Plan: [facility] Date Signed: 08/22/2017 04:40 PM Electronically Signed By:SILVERIO Gilliam Intervention Information
== END 2017-08-22 19:57 | disposition short-term general hospital (02) | DRG 219 ==
LOC: EDUNIT# → OBSVTOIN 15:09 → F2W 17:19 → F2N 08-05 10:54 → F2W 08-07 13:32
PROVIDERS: ADMIT Internal Medicine; ATTEND Internal Medicine
PROC: 0W3P4ZZ Control Bleeding in Gastrointestinal Tract, Percutaneous Endoscopic Approach (ICD-10-PCS; 2017-08-05)
PROC: 0DB64ZX Excision of Stomach, Percutaneous Endoscopic Approach, Diagnostic (ICD-10-PCS; 2017-08-05)
PROC: 02HV33Z Insertion of Infusion Device into Superior Vena Cava, Percutaneous Approach (ICD-10-PCS; 2017-08-05)
PROC: 30233N1 Transfusion of Nonautologous Red Blood Cells into Peripheral Vein, Percutaneous Approach (ICD-10-PCS; 2017-08-05)
PROC: 02VW3DZ Restriction of Thoracic Aorta, Descending with Intraluminal Device, Percutaneous Approach (ICD-10-PCS; principal; 2017-08-05 17:30)
PROC: 0W9L3ZX Drainage of Lower Back, Percutaneous Approach, Diagnostic (ICD-10-PCS; 2017-08-15)
PROC: 02HV33Z Insertion of Infusion Device into Superior Vena Cava, Percutaneous Approach (ICD-10-PCS; 2017-08-17)
DX: I71.2 Thoracic aortic aneurysm, without rupture (principal); G06.1 Intraspinal abscess and granuloma; G93.49 Other encephalopathy; K22.11 Ulcer of esophagus with bleeding; E43 Unspecified severe protein-calorie malnutrition; R78.81 Bacteremia; J96.11 Chronic respiratory failure with hypoxia; B37.0 Candidal stomatitis; D62 Acute posthemorrhagic anemia; K26.9 Duodenal ulcer, unspecified as acute or chronic, without hemorrhage or perforation; M79.81 Nontraumatic hematoma of soft tissue; B95.62 Methicillin resistant Staphylococcus aureus infection as the cause of diseases classified elsewhere; E53.8 Deficiency of other specified B group vitamins; J44.9 Chronic obstructive pulmonary disease, unspecified; G47.33 Obstructive sleep apnea (adult) (pediatric); E11.9 Type 2 diabetes mellitus without complications; G89.4 Chronic pain syndrome; R51 Headache; F10.10 Alcohol abuse, uncomplicated; F12.90 Cannabis use, unspecified, uncomplicated; E03.9 Hypothyroidism, unspecified; I10 Essential (primary) hypertension; I25.10 Atherosclerotic heart disease of native coronary artery without angina pectoris; Z99.81 Dependence on supplemental oxygen; Z85.89 Personal history of malignant neoplasm of other organs and systems
CPT/HCPCS: 80305; 82435-PO; 82565-PO; 82947-PO; 84132-PO; 84295-PO; 84520-PO; 85014-PO; 92523-GN; 92610-GN; 97110-GP; 97116-GP; 97161-GP; 97166-GO; 97530-GO; 97530-GP; 97535-GO; A9585; C1751; C1760; C1769; G0480; G0515-GO; G8978-GP-CK; G8978-GP-CM; G8979-GP-CI; G8979-GP-CJ; G8987-GO-CK; G8988-GO-CJ; G8996-GN-CI; G8997-GN-CI; G8998-GN-CI; G9165-GN-CH; G9166-GN-CH; G9167-GN-CH; J0610; J0690; J1170; J1650; J2405; J2550; J2704; J2997; J3010; J3370; J3411; J3420; J3480; P9016; Q9967

== ENCOUNTER 2018-02-20 08:45 | Observation (INO) | payer OTHER, MEDICARE ==
[2018-02-20] MEDS ORDERED: LIDOCAINE 1% 2 ML INJ ID PRN (09:35)
[2018-02-20] MEDS ORDERED: LR 1,000 ML IV ONE (09:35)
[2018-02-20] MEDS ORDERED: OXYMETAZOLINE 30 ML NASAL SPRAY ONE (09:56)
[2018-02-20] MEDS ORDERED: DEXAMETHASONE 4 MG/ML VIAL IVP ONE (10:12)
--- NOTE | 2018-02-20 10:14 | PDHPUP ---
History & Physical Update H&P update statement: This history and physical update is based on an assessment of the patient which was completed after admission or registration (within 24 hours), but prior to the surgery/procedure. H&P update: H&P reviewed & patient examined, no change in patient's condition since H&P completed
--- NOTE | 2018-02-20 10:30 | PDANEPAE ---
ANE Past Medical History - Cardiovascular History Hx Hypertension: Yes Hx Arrhythmias: No Hx Chest Pain: Yes Hx Coronary Artery / Peripheral Vascular Disease: Yes Hx CHF / Valvular Disease: Yes Hx Palpitations: No Cardiovascular History Comment: HTN. HYPERLIPIDEMIA. PR 2010. CAD. ANGIOPLASTY 2010. TVAR 08/2017 - Pulmonary History Hx COPD: Yes Hx Asthma/Reactive Airway Disease: Yes Hx Recent Upper Respiratory Infection: No Hx Oxygen in Use at Home: Yes O2 in Use at Home (L/minute): 3L AT WHILE SLEEPING Hx Sleep Apnea: Yes Sleep Apnea Screening Result - Last Documented: Positive Pulmonary History Comment: NAVID POSITIVE USES O2 - Neurologic History Hx Cerebrovascular Accident: No Hx Seizures: No Hx Dementia: No Neurologic History Comment: LUMBAR RADICULAR PAIN - Endocrine History Hx Diabetes: Yes Endocrine History Comment: TYPE 2. HYPOTHYROIDISM - Renal History Hx Renal Disorders: Yes Renal History Comment: BPH - Liver History Hx Hepatic Disorders: No - Neurological & Psychiatric Hx Hx Neurological and Psychiatric Disorders: No - Cancer History Hx Cancer: Yes Cancer History Comment: NASAL CA - Congenital Disorder History Hx Congenital Disorders: No - GI History Hx Gastrointestinal Disorders: Yes Gastrointestinal History Comment: DYSPHAGIA. CONSTIPATION USES MIRALAX DAILY - Other Health History Other Health History: CAREGIVERS DURING DAY. BRUISES EASILY - Chronic Pain History Chronic Pain: Yes - Surgical History Prior Surgeries: 08/05/17 TVAR WITH ZACH. 03/10/17 LAP APPY WITH MG. NASAL SURGERY FOR TUMOR 2004. PE TUBE. LEFT SHOULDER- RTC 1981. THYROID BX 01/2017. T&A ANE Review of Systems Review of Systems: - Exercise capacity METS (RN): 2 METS ANE Patient History - Allergies Allergies/Adverse Reactions: amlodipine Allergy (Verified 02/12/18 12:20) Edema of Extremities ezetimibe [From Zetia] Allergy (Verified 02/12/18 12:20) MYALGIAS lisinopril [Lisinopril] Allergy (Verified 02/12/18 12:20) Swelling/neck,face,throat Penicillins Allergy (Verified 02/12/18 12:20) UPSET STOMACH- FAMILY HX OF ANAPHYLAXIS Uhothjv-Htc-Umt Reductase Inhibitor Allergy (Verified 02/12/18 12:20) MYALGIAS tetracycline [Tetracycline] Allergy (Verified 02/12/18 12:20) UPSET STOMACH valsartan [From Diovan] Allergy (Verified 02/12/18 12:20) - Home Medications Home Medications: Tamsulosin HCl [Flomax 0.4 MG (*)] 12/30/13 [Last Taken 02/19/18] HYDROcodone/APAP 10/325 [Ava 10/325 (*)] Q4H PRN 03/29/14 [Last Taken 02/20/18 ] Albuterol [Proventil Inhaler HFA (*)] Q4H PRN 03/11/17 [Last Taken 02/19/18] Levothyroxine [Synthroid 112 mcg (*)] 03/11/17 [Last Taken 02/19/18] Carboxymethylcellulose 1% [Refresh Celluvisc (*)] DAILY PRN 02/12/18 [Last Taken 02/18/18] Doxycycline Hyclate [Vibramycin 100 MG (*)] BID 02/12/18 [Last Taken 02/19/18] Ipratropium/Albuterol [Combivent Respimat Inhal [place](*)] QID PRN 02/12/18 [ Last Taken 02/19/18] Tears/Dextran 70/Hypromellose [Natural Balance Tears (*)] Q2 PRN 02/12/18 [Last Taken 02/18/18] Polyethylene Glycol 3350 [Miralax 17 gm (*)] 17 gm PO DAILY PRN 02/20/18 [Last Taken Unknown] - NPO status NPO Since - Liquids (Date): 02/19/18 NPO Since - Liquids (Time): 23:00 NPO Since - Solids (Date): 02/19/18 NPO Since - Solids (Time): 19:00 - Smoking Hx Smoking Status: Former smoker - Family Anes Hx Family Hx Anesthesia Complications: NONE ANE Labs/Vital Signs - Vital Signs Blood Pressure: 122/71 Heart Rate: 74 Respiratory Rate: 20 O2 Sat (%): 95 Height: 182.88 cm Weight: 68.6 kg ANE Physical Exam - Airway Mallampati Score: Class 2 Mouth exam: poor dentition - Pulmonary Pulmonary: clear to auscultation - Cardiovascular Cardiovascular: regular rate and rhythym - ASA Status ASA Status: III ANE Anesthesia Plan Anesthesia Plan: general endotracheal anesthesia
[2018-02-20] MEDS ORDERED: PROPOFOL/EMULSION 500 MG/50 ML BOTTLE IV ONE (10:34)
[2018-02-20] MEDS ORDERED: REMIFENTANIL HCL 1 MG VIAL ONE (10:34)
[2018-02-20] MEDS ORDERED: ALBUTEROL 3 ML DEYVIAL IH PRN (11:09)
[2018-02-20] MEDS ORDERED: ONDANSETRON 4 MG/2 ML VIAL IVP PRN (11:09)
[2018-02-20] MEDS ORDERED: oxyCODONE IR 5 MG TAB PO PRN (11:09)
[2018-02-20] MEDS ORDERED: HYDROCODONE/APAP 5/325 TAB PO PRN (11:09)
[2018-02-20] MEDS ORDERED: LR 500 ML IV PRN (11:09)
[2018-02-20] MEDS ORDERED: ACETAMINOPHEN 500 MG TAB PO PRN (11:09)
[2018-02-20] MEDS ORDERED: METOCLOPRAMIDE 10 MG/2 ML VIAL IVP PRN (11:09)
[2018-02-20] MEDS ORDERED: LABETALOL HCL 5 MG/ML 20 ML MDV IVP PRN (11:09)
[2018-02-20] MEDS ORDERED: DEXAMETHASONE 4 MG/ML VIAL IVP PRN (11:09)
[2018-02-20] MEDS ORDERED: PROMETHAZINE HCL 25 MG/ML INJ IVP PRN (11:09)
[2018-02-20] MEDS ORDERED: fentaNYL 100 MCG/2 ML INJ IVP PRN (11:09)
[2018-02-20] MEDS ORDERED: NALOXONE HCL 0.4 MG/ML INJ IVP PRN (11:09)
[2018-02-20] MEDS ORDERED: DEXAMETHASONE 4 MG/ML VIAL ONE ×3 (11:10→11:11)
[2018-02-20] MEDS ORDERED: ONDANSETRON 4 MG/2 ML VIAL ONE (11:11)
[2018-02-20] MEDS ORDERED: PHENYLEPHRINE HCL 100 MCG/ML SYR ONE (11:17)
[2018-02-20] MEDS ORDERED: ePHEDrine SULFATE 25 MG/5 ML SYR ONE ×2 (11:18)
[2018-02-20] MEDS ORDERED: HYDROCOD/APAP 7.5/325 IN 15ML UDCUP PO PRN (11:36)
--- NOTE | 2018-02-20 11:36 | POSTOPPROG ---
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
[2018-02-20] MEDS ORDERED: D5W LR 1,000 ML IV SCH (11:45)
--- NOTE | 2018-02-20 12:04 | POSTANESTH ---
Post Anesthetic Evaluation Cardiovascular Status: Normal, Stable Respiratory Status: Normal, Stable Level of Consciousness/Mental Status: Can Participate in Eval Pain Control: Adequate, Prn Tx Ordered Nausea/Vomiting Control: Adequate, Prn Tx Ordered Complications Possibly Related to Anesthesia: None Noted
--- NOTE | 2018-02-20 14:45 | GOP ---
DATE OF OPERATION: 02/20/2018 SURGEON: Steve Mathis MD ANESTHESIA: General endotracheal. PREOPERATIVE DIAGNOSIS: Right vocal cord lesion. 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 PROCEDURE PERFORMED: Excision of right vocal cord lesion with extension into the subglottic region, as well as a left vocal cord injection with Prolaryn Plus. FINDINGS: 1. Lesion of the subglottis and extending into the anterior commissure on the right, grossly consist ent with papilloma. 2. Paralyzed left vocal cord, medialized. ESTIMATED BLOOD LOSS: 3 mL. DESCRIPTION OF PROCEDURE: The patient was placed on the operating table in supine position. After i nduction of adequate general endotracheal anesthesia, sterile drape was performed. Sterile eye pads and head drape were placed, and a tooth guard was placed to protect the patient's upper denture. The scope was advanced in the oral cavity, then into the oropharynx. The operating microscope was th en brought in after a Lewy arm had been placed to stabilize the laryngoscope. Once this had been com pleted, a lesion of the right subglottis extending into the anterior commissure was noted to be prese nt. This was grasped with a micro cup forceps and excised. On close visualization, it was noted thi s was consistent with papilloma. Thorough examination revealed that this extended into the subglotti c region, as well as the region of the anterior commissure and left subglottis. The lesion was widel y excised, and once this had been excised, attention was directed to the paralyzed left vocal cord. Prolaryn Plus Gel was then the injected lateral to the left vocal cord to medialize it. Four differe nt injection sites were utilized and a total of 0.6 mL of Prolaryn were injected. At this point, the procedure was terminated. Pledgets soaked in Afrin were held in place over the in jection sites until bleeding ceased. At this point, the laryngoscope was removed, as was the upper t ooth guard. The microscope was brought out of the surgical field, and the patient was awakened and t ransferred to postanesthesia recovery in stable condition. FLUID REPLACEMENT: 800 mL. COMPLICATIONS: None. /[id number]/MODL
--- NOTE | 2018-02-20 16:54 | SOAPPROG ---
SOAP Progress Note Assessment/Plan: Assessment: Patient doing well. States voice is strong and less raspy. Pain controlled. Voice strong, VSS. Plans for d/c tomorrow. Plan: 02/20/18 16:53 Objective: Vital Signs Temp Pulse Resp BP Pulse Ox 36.8 C 116 H 16 119/57 L 90 L 02/20/18 16:43 02/20/18 16:43 02/20/18 16:43 02/20/18 16:43 02/20/18 16:43 02/19/18 02/20/18 02/21/18 05:59 05:59 05:59 Intake Total 800 Output Total 200 Balance 600 ICD10 Worksheet Patient Problems: Problems Problem Status Onset Acute appendicitis Acute Altered mental status Acute C. difficile enteritis Acute 11/03/13 Chest pain Acute Chronic Disease Mgmt/Transitional Care Acute Chronic obstructive pulmonary disease with acute exacerbation Acute Coronary artery disease Acute Cough Acute Elevated troponin Acute Exacerbation of asthma Acute MRSA (methicillin resistant Staphylococcus aureus) Acute 05/06/15 Penetrating ulcer of aorta Acute
[2018-02-21 08:42] VITALS: BP 136/72
--- NOTE | 2018-02-21 08:58 | PDDCSUM ---
Discharge Summary Discharge Summary: Pt POD #1 s/p excision right vocal cord lesion and left vocal cord injection. Doing well. Voice strong, hoarseness improved. Okay for d/c. He does not need vocal rest. Dr. Mathis has recommended using voice frequently. Follow up in clinic 2 weeks
== END 2018-02-21 10:05 | disposition home or self-care (01) ==
LOC: F3N 08:45 → F3E 13:28
PROVIDERS: ADMIT Otolaryngology; ATTEND Otolaryngology
PROC: 0CBT8ZZ Excision of Right Vocal Cord, Via Natural or Artificial Opening Endoscopic (ICD-10-PCS; principal; 2018-02-20 10:30)
PROC: 3E0D7GC Introduction of Other Therapeutic Substance into Mouth and Pharynx, Via Natural or Artificial Opening (ICD-10-PCS; principal; 2018-02-20 10:30)
DX: J38.1 Polyp of vocal cord and larynx (principal); J38.01 Paralysis of vocal cords and larynx, unilateral; I10 Essential (primary) hypertension; E78.5 Hyperlipidemia, unspecified; I25.2 Old myocardial infarction; I25.10 Atherosclerotic heart disease of native coronary artery without angina pectoris; G47.33 Obstructive sleep apnea (adult) (pediatric)
CPT/HCPCS: 31545; 31571; C1878; J1100; J2370; J2405; J2704